=== PATIENT | female | born 1965 | race Caucasian/White ===

== ENCOUNTER 2020-02-15 08:02 | Outpatient (REF) | payer MEDICAID, SELFPAY ==
--- NOTE | 2020-02-15 | XR_ITS ---
EXAMINATION: XR KNEE, RIGHT CLINICAL INFORMATION: Anterior knee pain COMPARISON: None TECHNIQUE: Right knee is imaged in 4 views. FINDINGS: There is a moderate suprapatellar effusion. There is no fracture or dislocation or destructive process. There are no erosive changes or chondrocalcinosis. Borderline marginal osteophyte present medial femoral condyle. IMPRESSION: Moderate suprapatellar effusion.
== END 2020-02-15 08:03 | disposition home or self-care (01) ==
LOC: HO.XRAY 08:02
PROVIDERS: PCP Internal Medicine; Visit Provider Student in an Organized Health Care Education/Training Program
DX: M25.561 Pain in right knee (principal)
CPT/HCPCS: 73564

== ENCOUNTER → 2020-03-20 08:41 | Outpatient (BNVA) | payer MEDICAID, SELFPAY | PROVIDERS: PCP Internal Medicine; Referring Provider Internal Medicine; Visit Provider Orthopaedic Surgery | DX: M22.2X1 Patellofemoral disorders, right knee (principal) | CPT/HCPCS: 20610; 99202; J1040 ==

== ENCOUNTER 2020-04-22 07:00 | Outpatient (RCR) | payer MEDICAID, SELFPAY ==
--- NOTE | 2020-03-29 08:38 | MHC.PT.EP ---
[facility] [place] Office [place] Office [place] Office [address] Mimi Villagomez [address] [phone] F: [phone] F: [phone] F: [phone] F: [phone] Physical Therapy Plan of Care Date of Evaluation: 03/29/20 Date of Surgery: Diagnosis: PATELLOFEMORAL DISORDER RIGHT KNEE Assessment: 03/29/20 PT EVAL: 54 YO FEMALE W 5 MONTH H/O PROGR RIGHT KNEE PAIN- REF TO PT AFTER ORTHO CONSULT AND INJECTION ON 03/19/20. SHE NOTES FUNCTIONAL LIMITATIONS FOLLOWS: GAIT > 5 MIN, ASC/ DESC STAIR MGMT, PROLONGED SITTING, AND DRIVING. OBJECTIVE FINDINGS INCLUDE ALTERED GAIT MECH, DECR AROM RIGHT KNEE AND AMY HIPS, GENERAL WEAKNESS IN LEs/ PELVIS, GREATER THAN IDEAL BODY WEIGHT W MECHANICAL DEFICITS OF GENU VALGUS , AND PAIN/ (+) RIGHT PFPS. Pt IS A VERY GOOD PT CANDIDATE- SHE IS MOTIVATED TO REDUCE PAIN, IMPROVE FUNCTION TO PREVIOUS LEVELS, AND CONT W HER WEIGHT LOSS PROGRAM. Frequency and Duration: The patient will be seen 2x WK x 5 WKS Short Term Goals: Pt DEMON IMPROVED TECHN W GAIT MECH,STAIR MGMT AND FUNCT SQUAT W RIGHT KNEE PAIN DECR BY 50% IN 2 WKS IMPROVE AMY HIP FLEXIB ,R PATELLAR MOB, AND Pt DEMMON IMPROVED ED RE DX/ HEP INITIATION IN 2 WKS Long-Term Goals: Pt RESUME REG ADLs AND EXERCISE ROUTINE EVIDENT IN IMPROVED LEFT SCORE BY 10 POINTS (AT EVAL 15/80) IN 5 WKS Pt INDEP W HEP AND SELF-SX MGMT IN 5 WKS Treatment Plan: Modalities to reduce pain, spasms and effusion. Manual therapy to restore motion and function. Therapeutic exercise to improve strength and flexibility. Neuromuscular re-education for posture and balance. Therapeutic activities to return to functional activities of daily living. Please sign and return to therapist. Thank you for your referral.
--- NOTE | 2020-05-09 09:32 | MHC.PT.DC ---
[facility] [place] Office [place] Office [place] Office [address] Mimi Villagomez [address] [phone] F: [phone] F: [phone] F: [phone] F: [phone] Physical Therapy Discharge Report Diagnosis: PATELLOFEMORAL DISORDER RIGHT KNEE Date of Surgery: Date of Evaluation: 03/29/20 Date of Discharge: 05/09/20 Treatments to Date: 6 Cancellations to Date: 0 No Shows to Date: 0 Discharge Status: Achieved Goals Independent with HEP Discharge Summary: Pt PROGR WELL W IMP FUNCT MOB ANNA AND HEP COMPLIANCY EVIDENT IN INCR STRENGTH AND DECR PF PAIN- Pt MET HER PT GOALS AND IS INDEP AND MOTIVATED W HER HEP. Electronically signed by: Lelo Crawford,PT Please sign and return to therapist. Thank you for your referral.
--- NOTE | 2020-05-23 11:51 | MHC.PT.DC ---
[facility] [place] Office [place] Office [place] Office [address] Mimi Villagomez [address] [phone] F: [phone] F: [phone] F: [phone] F: [phone] Physical Therapy Discharge Report Diagnosis: PATELLOFEMORAL DISORDER RIGHT KNEE Date of Surgery: Date of Evaluation: 03/29/20 Date of Discharge: 05/09/20 Treatments to Date: 6 Cancellations to Date: 0 No Shows to Date: 0 Discharge Status: Achieved Goals Independent with HEP Discharge Summary: Pt PROGR WELL W IMP FUNCT MOB ANNA AND HEP COMPLIANCY EVIDENT IN INCR STRENGTH AND DECR PF PAIN- Pt MET HER PT GOALS AND IS INDEP AND MOTIVATED W HER HEP. Electronically signed by: Lelo Crawford,PT Please sign and return to therapist. Thank you for your referral.
== END 2020-05-09 09:39 | disposition other institution (70) ==
LOC: HO.PT 07:00
PROVIDERS: PCP Internal Medicine; Visit Provider Orthopaedic Surgery
DX: M22.2X1 Patellofemoral disorders, right knee (principal)
CPT/HCPCS: 97110; 97140; 97162; 97530

== ENCOUNTER 2020-05-20 11:56 | Outpatient (REF) | payer MEDICAID, SELFPAY ==
--- NOTE | 2020-05-20 | MM_ITS ---
EXAMINATION: MM SCREENING DIGITAL BREAST TOMOSYNTHESIS, BILATERAL CLINICAL INFORMATION: Screening. Asymptomatic. The lifetime risk of breast cancer based on the Tyrer-Cuzick Model is 6%. COMPARISON: Mammography: 08/02/2018, 06/30/2018, 03/29/2017 TECHNIQUE: Digital breast tomosynthesis is performed in both the craniocaudal and mediolateral oblique views along with computer-aided detection (CAD). Synthesized 2D images are generated from the tomosynthesis. FINDINGS: There are scattered areas of fibroglandular density (ACR BI-RADS breast composition Category b). Breast tissue composition borders on predominantly fatty. The background stromal and fibroglandular densities are stable. There is no interval mass or architectural abnormality or abnormal calcifications. Again, there are regional benign round calcifications central and upper outer right breast and a benign rim calcifications. The axilla and skin contours are unremarkable. Dermal lesion again seen overlying the posterior 7:00 left breast. MM/MM tomosynthesis screening BI IMPRESSION: No mammographic evidence of malignancy. ASSESSMENT: BI-RADS 2: Benign RECOMMENDATION: Routine annual mammography screening. This patient's information was entered into a reminder system with a target due date for their next mammogram.
== END 2020-05-20 11:57 | disposition home or self-care (01) ==
LOC: HO.MAMMO 11:56
PROVIDERS: PCP Internal Medicine; Visit Provider Internal Medicine
DX: Z12.31 Encounter for screening mammogram for malignant neoplasm of breast (principal)
CPT/HCPCS: 77063; 77067

== ENCOUNTER 2020-10-25 10:57 | Outpatient (REF) | payer MEDICAID, SELFPAY | END 2020-10-25 10:58 | disposition home or self-care (01) | LOC: HO.LAB 10:57 | PROVIDERS: PCP Internal Medicine; Visit Provider Internal Medicine | DX: Z20.822 Contact with and (suspected) exposure to COVID-19 (principal) | CPT/HCPCS: C9803; U0003; U0005 ==

== ENCOUNTER → 2020-11-21 15:34 | Outpatient (BNVA) | payer MEDICAID, SELFPAY | PROVIDERS: Visit Provider Student in an Organized Health Care Education/Training Program | DX: M22.2X1 Patellofemoral disorders, right knee (principal); E11.9 Type 2 diabetes mellitus without complications; I10 Essential (primary) hypertension; Z79.84 Long term (current) use of oral hypoglycemic drugs; Z79.899 Other long term (current) drug therapy | CPT/HCPCS: 99212 ==

== ENCOUNTER → 2020-12-03 11:33 | Outpatient (BNVA) | payer MEDICAID, SELFPAY | PROVIDERS: PCP Internal Medicine; Visit Provider Orthopaedic Surgery | DX: M22.2X1 Patellofemoral disorders, right knee (principal) | CPT/HCPCS: 20610; 99212; J1040 ==

== ENCOUNTER 2021-06-16 12:35 | Outpatient (REF) | payer MEDICAID, SELFPAY ==
--- NOTE | ~2021-06-16 | MM_ITS ---
EXAMINATION: MM SCREENING DIGITAL BREAST TOMOSYNTHESIS, BILATERAL CLINICAL INFORMATION: Screening. Asymptomatic. The lifetime risk of breast cancer based on the Tyrer-Cuzick Model is 6%. COMPARISON: Mammography: 05/20/2020, 07/05/2018, 06/30/2018, 03/29/2017 TECHNIQUE: Digital breast tomosynthesis is performed in both the craniocaudal and mediolateral oblique views along with computer-aided detection (CAD). Synthesized 2D images are generated from the tomosynthesis. FINDINGS: There are scattered areas of fibroglandular density (ACR BI-RADS breast composition Category b). Background stromal and fibroglandular densities are stable. Parenchymal pattern borders on predominantly fatty. There is no developing density or interval mass or architectural abnormality. Again, there are benign regional scattered coarse round and rim calcifications central and upper outer right breast. No significant changes. MM/MM tomosynthesis screening BI IMPRESSION: No mammographic evidence of malignancy. ASSESSMENT: BI-RADS 2: Benign RECOMMENDATION: Routine annual mammography screening. This patient's information was entered into a reminder system with a target due date for their next mammogram.
== END 2021-06-16 12:36 | disposition home or self-care (01) ==
LOC: HO.MAMMO 12:35
PROVIDERS: PCP Internal Medicine; Visit Provider Internal Medicine
DX: Z12.31 Encounter for screening mammogram for malignant neoplasm of breast (principal)
CPT/HCPCS: 77063; 77067

== ENCOUNTER → 2021-10-21 10:38 | Outpatient (BNVA) | payer MEDICAID, SELFPAY | PROVIDERS: PCP Internal Medicine; Visit Provider Nurse Practitioner Family | DX: M22.2X1 Patellofemoral disorders, right knee (principal); M19.041 Primary osteoarthritis, right hand; M79.642 Pain in left hand; R76.8 Other specified abnormal immunological findings in serum | CPT/HCPCS: 99212 ==

== ENCOUNTER → 2022-11-03 08:56 | Outpatient (BNVA) | payer MEDICAID, SELFPAY | PROVIDERS: PCP Internal Medicine; Visit Provider Internal Medicine Rheumatology | DX: R76.8 Other specified abnormal immunological findings in serum (principal); M77.12 Lateral epicondylitis, left elbow; M22.2X1 Patellofemoral disorders, right knee | CPT/HCPCS: 99212 ==

== ENCOUNTER 2023-09-21 08:13 | Outpatient (REF) | payer MEDICAID, SELFPAY ==
[2023-09-21 12:22] LABS: Alanine Aminotransferase 16 U/L (0-31); Albumin Level 4.2 g/dL (3.5-5.0); Alkaline Phosphatase 73 U/L (39-117); Anion Gap 17 (12-20); Aspartate Amino Transferase 15 U/L (5-31); Bilirubin Direct 0.2 mg/dL (0.0-0.5); Bilirubin Total 0.5 mg/dL (0.0-1.0); Blood Urea Nitrogen 20 mg/dL (9-16); Calcium 9.9 mg/dL (8.4-10.2); Carbon Dioxide 24 mmol/L (22-29); Chloride 104 mmol/L (96-108); Cholesterol 236 mg/dL (<200); Estimated Glomerular Filt Rate > 60; Glucose Random 208 mg/dL (60-115); HDL Cholesterol 65 mg/dL (>40); LDL Cholesterol Calculated 144 mg/dL (<100); Potassium 4.5 mmol/L (3.3-5.1); Sodium 140 mmol/L (135-145); Total Protein 7.6 g/dL (6.5-8.0); Triglycerides 139 mg/dL (<150)
[2023-09-21 12:41] LABS: Vitamin B12 293 pg/mL (200-900)
== END 2023-09-21 08:14 | disposition home or self-care (01) ==
LOC: HO.HHCL 08:13
PROVIDERS: Visit Provider Internal Medicine
DX: E11.65 Type 2 diabetes mellitus with hyperglycemia (principal); Z79.4 Long term (current) use of insulin
CPT/HCPCS: 36415; 80048; 80061; 80076; 82607

== ENCOUNTER 2023-10-01 11:15 | Outpatient (REF) | payer MEDICAID, SELFPAY ==
[2023-10-01 14:08] LABS: Vitamin D 25-OH Total 23.7 ng/mL (>30)
== END 2023-10-01 11:16 | disposition home or self-care (01) ==
LOC: HO.HHCL 11:15
PROVIDERS: Visit Provider Internal Medicine
DX: E11.65 Type 2 diabetes mellitus with hyperglycemia (principal); Z79.4 Long term (current) use of insulin
CPT/HCPCS: 36415; 82306

== ENCOUNTER 2023-10-19 10:38 | Outpatient (REF) | payer MEDICAID, SELFPAY ==
[2023-10-19 13:05] LABS: Anion Gap 20 (12-20); Blood Urea Nitrogen 20 mg/dL (9-16); Calcium 10.2 mg/dL (8.4-10.2); Carbon Dioxide 26 mmol/L (22-29); Chloride 96 mmol/L (96-108); Estimated Glomerular Filt Rate > 60; Glucose Random 262 mg/dL (60-115); Potassium 4.8 mmol/L (3.3-5.1); Sodium 137 mmol/L (135-145)
[2023-10-19 14:02] LABS: Creatinine Urine 24.51 mg/dL; Microalbumin Urine < 5.0 mg/L
== END 2023-10-19 10:39 | disposition home or self-care (01) ==
LOC: HO.HHCL 10:38
PROVIDERS: Visit Provider Internal Medicine
DX: E11.65 Type 2 diabetes mellitus with hyperglycemia (principal); I10 Essential (primary) hypertension; Z79.4 Long term (current) use of insulin
CPT/HCPCS: 36415; 80048; 82043; 82570

== ENCOUNTER 2023-10-20 14:35 | Outpatient (REF) | payer MEDICAID, SELFPAY ==
--- NOTE | ~2023-10-20 | MM_ITS ---
EXAMINATION: MM SCREENING DIGITAL BREAST TOMOSYNTHESIS, BILATERAL CLINICAL INFORMATION: Screening. Asymptomatic. COMPARISON: Mammography: This study is compared with prior exams dating back to 2019. TECHNIQUE: Digital breast tomosynthesis is performed in both the craniocaudal and mediolateral oblique views along with computer-aided detection (CAD). Synthesized 2D images are generated from the tomosynthesis. FINDINGS: The breasts are almost entirely fatty (ACR BI-RADS breast composition Category a). There are no significant masses, abnormal calcifications, or other abnormalities. There are unchanged, benign, scattered calcifications in the superior aspect of the right breast. MM/MM tomosynthesis screening BI IMPRESSION: No mammographic evidence of malignancy. ASSESSMENT: BI-RADS BI-RADS 2 - Benign Findings RECOMMENDATION: Routine annual mammography screening. 1 year F/U This examination should not preclude the clinical evaluation of a suspicious palpable abnormality. This patient's information was entered into a reminder system with a target due date for their next mammogram.
== END 2023-10-20 14:36 | disposition home or self-care (01) ==
LOC: HO.MAMMO 14:35
PROVIDERS: PCP Internal Medicine; Visit Provider Internal Medicine
DX: Z12.31 Encounter for screening mammogram for malignant neoplasm of breast (principal)
CPT/HCPCS: 77063; 77067

== ENCOUNTER → 2023-10-20 15:15 | Outpatient (BNV) | payer MEDICAID, SELFPAY | PROVIDERS: PCP Internal Medicine; Visit Provider Radiology Diagnostic Radiology | DX: Z12.31 Encounter for screening mammogram for malignant neoplasm of breast (principal) | CPT/HCPCS: 77063; 77067 ==

== ENCOUNTER 2023-12-13 13:53 | Outpatient (REF) | payer MEDICAID, SELFPAY ==
[2023-12-13 15:42] LABS: Bacterial Vaginosis PCR POSITIVE (Negative); Candida Group PCR DETECTED (Not Detect); Candida glab krusei PCR NOT DETECTED (Not Detect); Trichomonas vaginalis PCR NOT DETECTED (Not Detect)
== END 2023-12-13 13:54 | disposition home or self-care (01) ==
LOC: HO.HHCLNP 13:53
PROVIDERS: Visit Provider Internal Medicine
DX: N89.8 Other specified noninflammatory disorders of vagina (principal)
CPT/HCPCS: 0352U

== ENCOUNTER 2023-12-13 13:54 | Outpatient (REF) | payer MEDICAID, SELFPAY ==
[2023-12-15 12:09] LABS: HPV mRNA E6/E7 Not Detected (Not Detected)
== END 2023-12-13 13:55 | disposition home or self-care (01) ==
LOC: HO.HHCLNP 13:54
PROVIDERS: Visit Provider Internal Medicine
DX: Z01.419 Encounter for gynecological examination (general) (routine) without abnormal findings (principal)
CPT/HCPCS: 0352U; 36415; 87624; 88175

== ENCOUNTER 2023-12-20 07:59 | Outpatient (REF) | payer MEDICAID, SELFPAY ==
[2023-12-20 11:51] LABS: Alanine Aminotransferase 24 U/L (0-31); Albumin Level 4.2 g/dL (3.5-5.0); Alkaline Phosphatase 109 U/L (39-117); Aspartate Amino Transferase 35 U/L (5-31); Bilirubin Direct 0.2 mg/dL (0.0-0.5); Bilirubin Total 0.4 mg/dL (0.0-1.0); Cholesterol 154 mg/dL (<200); HDL Cholesterol 45 mg/dL (>40); LDL Cholesterol Calculated 81 mg/dL (<100); Total Protein 7.4 g/dL (6.5-8.0); Triglycerides 143 mg/dL (<150)
== END 2023-12-20 08:00 | disposition home or self-care (01) ==
LOC: HO.HHCL 07:59
PROVIDERS: Visit Provider Internal Medicine
DX: Z13.220 Encounter for screening for lipoid disorders (principal)
CPT/HCPCS: 36415; 80061; 80076

== ENCOUNTER 2024-04-27 08:08 | Outpatient (REF) | payer MEDICAID, SELFPAY ==
[2024-04-27 11:44] LABS: Anion Gap 15 (12-20); Blood Urea Nitrogen 14 mg/dL (9-16); Calcium 8.4 mg/dL (8.4-10.2); Carbon Dioxide 25 mmol/L (22-29); Chloride 104 mmol/L (96-108); Estimated Glomerular Filt Rate > 60; Glucose Random 179 mg/dL (60-115); Potassium 4.4 mmol/L (3.3-5.1); Sodium 140 mmol/L (135-145)
== END 2024-04-27 08:09 | disposition home or self-care (01) ==
LOC: HO.HHCL 08:08
PROVIDERS: Visit Provider Internal Medicine
DX: I10 Essential (primary) hypertension (principal)
CPT/HCPCS: 36415; 80048

== ENCOUNTER 2024-10-12 08:12 | Outpatient (REF) | payer MEDICAID, SELFPAY ==
--- OUTSIDE RECORDS SUMMARY | 2024-10-12 08:15 | XMS_ITS | Encounter Summary ---
Author Organization [employer] Address [address] [facility] [address] [place] [address] Care Team Providers Care Glass Unloading Equipment Tender Name Role Phone Apple Rivera MD Primary Care Provide r Teresa Wolf PharmD Unavailable [phone] Reason for Visit * Reason Comments Med Refill Encounter Details Date Type Department Care Team ([facility] st Contact Info) Description 06/16/2024 Refill [facility] MEDICINE [address] [place], [place] [id number] Teresa Wolf, PharmD [address] [place] [address] Type 2 diabetes mellitus with hyperglycemia, with long-term current use of insulin ([facility]) Social History Tobacco Use Types Packs/Day Years Used Date Smoking Tobacco: Never Passive Smoke Exposure: Never Smokeless Tobacco: Never Alcohol Use Standard Drinks/Week Comments Never 0 (1 standard drink = 0.6 oz pur e alcohol) Depression Answer Date Recorded Patient Health Questionnaire-9 Score 0 12/13/2023 Patient Health Questionnaire-9 Score 0 12/13/2023 Last PHQ-9: Questionnaire Data Not on file 0 12/13/2023 Housing Stability Answer Date Recorded What is your housing situation today? I have kolby benitez 12/13/[address] you li ve. Do you have problems with any of the following? None of the above 12/13/2023 Food Insecurity Answer Date Recorded Within the past 12 months, y ou worried that your food would run out before you got money to buy more: Never True 12/13/2023 Within the past 12 months,th e food you bought just didn't last and you didn't have enough money to get more: Never True Transportation Answer Date Recorded In the past 12 months, has l ack of transportation kept you from medical appts, meetings, work or from getting things needed for daily living? No 12/13/2023 Utilities Answer Date Recorded In the past 12 months, has t he electric, gas, oil or water company threatened to shut off services in your home? No 12/13/2023 Depression Answer Date Recorded Patient Health Questionnaire-2 Score 0 12/13/2023 Internet Access Answer Date Recorded Internet Access Q1 No 01/14/2024 Internet Access Q2 I do not want or need it 12/17 Comments Unknown Sex and Gender Information Value Date Recorded Sex Assigned at Female 03/16/2022 10:34 AM EDT Legal Sex Female 10:34 AM EDT Gender Identity Female 03/16/2022 10:34 AM EDT Sexual Orientation Choose not to disclose 2021 10:34 AM EDT documented as of this encounter Plan of Treatment Upcoming Encounters Date Type Department Care Team (Late st Contact Info) Description 10/18/2024 9:30 AM EDT Medication Management [facility] MEDICINE [address] [place] [address] Teresa Wlof, PharmD [address] [place] [address] 12/08/2024 10:00 AM EDT Office Visit [facility] OPTOMETRY [address] [place] [address] Yudith Velázquez, OD [address] [place] [address] 01/05/2025 11:15 AM EDT Office Visit [facility] MEDICINE [address] [place] [address] Apple Rivera MD [address] [place] [address] 01/26/2025 8:00 AM EDT Office Visit [facility] ADULT DENTAL [address] [place] [address] Geeta Reyes [address] [place] [address] documented as of this encounter Goals Goal Patient Goal Type Associated Problems Recent Progress Patient-Stated? Author Blood Pressure < 140/90 Blood Pressure 140/90(2024 10:53 AM EDT) No Teresa Ramirez PharmD Consistently take Medications as Prescribed General No Teresa Ramirez PharmD Hemoglobin A1c < 7 Result Component 10.2(08/12/19 11:01 AM EDT) No Teresa Ramirez PharmD documented as of this encounter Visit Diagnoses Diagnosis Type 2 diabetes mellitus with hyperglycemia, with long-term current use of insulin ([facility]) documented in this encounter Additional Health Concerns Assessment Noted Time PHQ-9 Depression Total Score: 0 12/13/19 24 9:31 AM EDT documented as of this encounter Care Teams Glass Unloading Equipment Tender Relationship Specialty Start Date End Date Apple Rivera MD [address] [place] [address] PCP - General Family Medicine 10/31/19 Teresa Wolf PharmD [address] [place] [id number] Pharmacist Internal Medicine 09/14/23 María Van Sap Bi DeveloperBehavioral Therapy Coordinator 05/19/23 David Mendez Sap Bi DeveloperBehavioral Therapy Coordinator 07/20/24 documented as of this encounter
[2024-10-12 12:06] LABS: Alanine Aminotransferase 24 U/L (0-31); Albumin Level 4.3 g/dL (3.5-5.0); Alkaline Phosphatase 102 U/L (39-117); Anion Gap 14 (12-20); Aspartate Amino Transferase 22 U/L (5-31); Bilirubin Total 0.2 mg/dL (0.0-1.0); Blood Urea Nitrogen 18 mg/dL (9-16); Carbon Dioxide 27 mmol/L (22-29); Chloride 106 mmol/L (96-108); Cholesterol 247 mg/dL (<200); Estimated Glomerular Filt Rate > 60; Glucose Random 95 mg/dL (60-115); HDL Cholesterol 56 mg/dL (>40); LDL Cholesterol Calculated 142 mg/dL (<100); Potassium 4.5 mmol/L (3.3-5.1); Sodium 142 mmol/L (135-145); Total Protein 7.7 g/dL (6.5-8.0); Triglycerides 245 mg/dL (<150)
[2024-10-12 13:08] LABS: Creatinine Urine 156.35 mg/dL; Microalbum/Creatinine Ratio Ur 4.4 ug/mg cr (<30)
== END 2024-10-12 08:13 | disposition home or self-care (01) ==
LOC: HO.HHCL 08:12
PROVIDERS: Visit Provider Internal Medicine
DX: E11.65 Type 2 diabetes mellitus with hyperglycemia (principal); Z79.4 Long term (current) use of insulin
CPT/HCPCS: 36415; 80053; 80061; 82043; 82570

== ENCOUNTER 2024-12-08 10:30 | Outpatient (AMB) | payer MEDICAID, SELFPAY ==
--- NOTE | 2024-12-08 10:35 | MHC.OFFVIS ---
Vital Signs 12/08/24 10:46 Height 5 ft 1 in Weight 200 lb BMI 37.8 BP 166/82 H Blood Pressure Location Lt brachial Position Sitting Pulse 92 Pulse Oximetry (%) 95 Oxygen Delivery Method Room Air Intake Visit Reasons: [facility] Screening /Constipation Intake Note: Patient new consult for pre Colonoscopy screening. Patient cc: upper abdominal pain/bloating, acid reflux with gasses, constipation/diarrhea and swallowing difficulties. Denes any Legal Analyst Required: Yes Legal Analyst Name: [facility] interpeter Accompanied by: Family/Other Allergies No Known Allergies Allergy (Verified 11/03/22 09:08) Medication List - Last Reconciled 12/08/24 by Susannah Dela Cruz CNP amlodipine-benazepril 10-40 mg 1 cap PO DAILY atorvastatin 40 mg PO DAILY bisacodyl (Dulcolax (bisacodyl)) 20 mg (4 x 5 mg) PO ONCE 1 day canagliflozin (Invokana) 300 mg PO QAM chlorthalidone 50 mg PO QAM cholecalciferol (vitamin D3) 50 mcg PO DAILY citalopram 20 mg PO DAILY cyanocobalamin (vitamin B-12) 1,000 mcg PO DAILY famotidine 40 mg PO BEDTIME glipizide ER 2 tabs AM 1 tab evening orally; insulin glargine (Lantus Solostar U-100 Insulin) 30 units subcut QAM loratadine 10 mg PO DAILY PRN metformin ER 1,000 mg PO BID methylcellulose (laxative) (Fiber Therapy (methylcellulose)) 500 mg PO BID pantoprazole 40 mg PO QAM pioglitazone 30 mg PO QAM polyethylene glycol 3350 (Miralax) 238 grams PO ONCE polyethylene glycol 3350 (Miralax) 17 grams PO DAILY 30 days tirzepatide (Mounjaro) 2.5 mg subcut QWEEK HPI HPI [place] Screening /Constipation: Details: Patient is a 58-year-old female with PMH of hypertension, diabetes and asthma. Referred by PCP for pre colonoscopy screening and further evaluation of constipation. Patient is accompanied by her granddaughter. Lety presents for colonoscopy screening, initially referred for chronic constipation but now reports a shift to diarrhea. Constipation has been a persistent problem, managed with Miralax started in September, which led to the onset of diarrhea within the same month. Diarrhea is most prominent at night, causing awakening up to four times, and also occurs in the morning, resolving later in the day. Miralax was stopped 15 days ago; constipation returns if Miralax is withheld for about three days. Vomiting occurs occasionally, typically after coughing, with the last episode 10 days ago. Nausea is intermittent. No blood in stools. Heartburn is persistent, worsened by water and other triggers. There is discomfort with swallowing water, medications, and occasional with solids. Appetite is preserved, but there has been gradual weight gain since 2020. Reports home blood glucose has not dropped below 210 mg/dL in the past 15 days, with occasional readings of 175 mg/dL. Diabetes regimen includes injectable and oral agents. Patient denies: fever/chills, unintentional wt loss or melena/hematochezia. Social hx: -denies ETOH use -denies recreational drug use -non-smoker - family hx as below -denies personal hx of CA -denies significant cardiopulmonary history -tolerated anesthesia in the past without difficulty. PFS Medical History (Updated 12/08/24 @ 12:18 by Susannah Dela Cruz CNP) Diabetes type 2 Epigastric pain Dysphagia Dysacousia Acid reflux Constipation Colon cancer screening Diabetes type 2, controlled Asthma Hypertension Surgical History (Updated 12/08/24 @ 10:40 by Apple Hernandez) History of esophagogastroduodenoscopy (EGD) Hx of colonoscopy History of hysterectomy Family History Father HTN (hypertension) Throat cancer Alcoholism Mother HTN (hypertension) Social History Alcohol intake: never Patient Tobacco Use Status: Never used Tobacco Current occupational status: unemployed Current occupation: Right Handed Review of Systems Const Reports as per HPI ENT Reports as per HPI Card Reports as per HPI Resp Reports as per HPI GI Reports as per HPI Reports as per HPI Physical Exam Const General: healthy appearing, no acute distress and well developed Nutritional Appearance: average body habitus Orientation/consciousness: patient oriented x3 HEENT Head: Yes normal to inspection, Yes normocephalic and Yes atraumatic Face and sinus: Yes normal facial exam Eyes General: appearance normal, both eyes and all related structures Neck Neck: Yes normal visual inspection Resp Effort & Inspection: normal respiratory effort, able to speak in complete sentences, no tracheal deviation and symmetric chest movement Auscultation: clear to auscultation bilaterally Cardio Jugular venous distension: no JVD Rate: regular rate Rhythm: regular rhythm Heart sounds: S1 normal heart sound present, S2 normal heart sound present, no gallops and no murmurs GI Inspection: Yes normal to inspection, No distended and Yes obesity Palpation (GI): Soft to palpation, not firm, Tenderness to palpation present (GI) and No hepatosplenomegaly present Auscultation: normoactive bowel sounds Neuro General: patient oriented x3 Gait exam (Neuro): Normal gait present Psych Appearance: grossly normal Mental Status: mental status grossly normal Speech and movement: Normal speech and movement present Affect: normal affect Attitude: cooperative Thought process: Normal thought process present Thought content: Normal thought content present Insight: Good insight present (Psych) Judgement: Good judgement present (Psych) Results Reviewed Results Reviewed: DATE OF SERVICE: 12/20/18 Procedure Description: COLONOSCOPY PROCEDURE NOTE Procedure: The patient was placed in the left lateral decubitis position and pre-procedure medications were administered. After a digital rectal examination of the ano-rectum, the video colonoscope was inserted into the rectum and advanced through the colon to the cecum/TI. The colonoscope was slowly withdrawn in a retrograde panoramic fashion and the colon mucosa was carefully examined including a retroflexed view of the rectum. Findings and interventions are described below. Procedure Difficulty: Without difficulty Findings: Terminal Ileum ? Normal Cecum ?Normal Ascending Colon ?Normal Transverse Colon -Normal Descending Colon ?Normal Sigmoid Colon ?Normal, 6-8 mm sessile polyp removed wtih cold snare Rectum ? small grade I internal hemorrhoids Ano-rectum -Normal Colon preparation: Excellent Impression and Post Procedure Diagnosis: Colonoscopy Findings: polyp hemorrhoids Plan: Await pathology results hig fiber diet Repeat Colonoscopy interval based on path results ? in 3-5 years if polyps are adenomatous and 10 years if polyps are hyperplastic. Above findings were reviewed with the patient and relevant handouts were given in the discharge area Surgeon(s): SUMIT CHENEY Assessment & Plan Assessment & Plan (1) Colon cancer screening: Comment: 12/20/18 COLONOSCOPY complete wtih excellent prep- 6-8 m rectosigmoid tubular adenoma, hemorrhoids Code(s): Z12.11 - Encounter for screening for malignant neoplasm of colon Category: Medical Plan: Due for polyp surveillance colonoscopy Medications: -prescriptions for laxative tablets and MiraLax sent to pharmacy; instructions for Gatorade purchase and clear liquid diet given. - understands diabetes medications and ASA will need to be held days prior to procedure. Nurse to review med holds per protocol. Patient educated on scheduling process, procedure preparation, including avoiding certain foods and ensuring clear liquid intake Advised on necessity for ride post-procedure due to sedation. (2) Constipation: Code(s): K59.00 - Constipation, unspecified Category: Medical Qualifiers: Constipation type: unspecified constipation type Qualified Code(s): K59.00 - Constipation, unspecified Plan: Longstanding constipation, responsive to Miralax, with recurrence when Miralax is withheld. Diarrhea likely secondary to overuse of osmotic laxative. Medications: -Adjust Miralax to every other day; skip an extra day if diarrhea occurs. -add fiber supplement Lifestyle Modifications: Monitor fiber intake, maintain adequate hydration. Follow-Up: Assess response to Miralax titration at next visit. (3) Acid reflux: Code(s): K21.9 - Gastro-esophageal reflux disease without esophagitis Category: Medical Qualifiers: Esophagitis presence: esophagitis presence not specified Qualified Code(s): K21.9 - Gastro-esophageal reflux disease without esophagitis Plan: Persistent heartburn, worsened by water and other triggers, with incomplete response to omeprazole. Symptoms suggest possible refractory GERD or other upper GI pathology. Upper endoscopy and swallow study indicated to evaluate for esophagitis, stricture, or motility disorder. Additional Tests: Order upper endoscopy and barium swallow study. Medications: Switch to pantoprazole 40 mg PO daily. Encouraged to take pantoprazole as prescribed, taken at least 30-60 minutes before a meal. Education on GERD prevention : -Advised against heavy meals; encouraged small, frequent meals instead of large ones. - Instructed to remain upright for 2?3 hours after eating. - Advised to avoid late-night meals, spicy foods, caffeine, alcohol, known dietary triggers, and tight-fitting clothing. - Emphasis placed on gradual implementation of lifestyle changes to improve adherence and symptom control. (4) Epigastric pain: Code(s): R10.13 - Epigastric pain Category: Medical Plan: Exam reveals upper epigastric tenderness; differential includes peptic ulcer disease, biliary pathology, or hepatic etiology. Ultrasound indicated to assess gallbladder, liver, and adjacent structures. Additional Tests: Abdominal ultrasound (urgent). Medications: As above. Lifestyle Modifications: As above. (5) Diabetes type 2: Code(s): E11.9 - Type 2 diabetes mellitus without complications Category: Medical Qualifiers: Diabetes mellitus intermediate manager insulin use: with intermediate manager use Diabetes mellitus complication status: with hyperglycemia Qualified Code(s): E11.65 - Type 2 diabetes mellitus with hyperglycemia; Z79.4 - longterm (current) use of insulin Plan: Reported home glucose consistently >210 mg/dL, which may contribute to GI symptoms (e.g., gastroparesis, diarrhea). Suboptimal glycemic control increases risk for complications and may exacerbate GI complaints. Additional Tests: Review recent labs; coordinate with diabetes management team. Medications: Continue current regimen (Manjaro, glipizide, metformin, Lantus, amlodipine); hold diabetes meds as instructed for colonoscopy prep. Lifestyle Modifications: Reinforced diabetes education, dietary counseling, consider referral to museum educator/museum educator. Follow-Up: Endocrinology and PCP is planned Plan Follow-up in 8 weeks or sooner as needed Time: I spent a total of 45b minutes on the date of encounter which includes: Preparing to see the patient (reviewed previous documentation, test results and medical history) Performing a medically appropriate exam and/or evaluation Ordering medications, tests, and procedures Documenting clinical information in the health record Orders: Orders FL barium swallow Today K21.9 - Gastro-esophageal reflux disease without esophagitis, R13.10 - Dysphagia, unspecified US abdomen complete Today K21.9 - Gastro-esophageal reflux disease without esophagitis, R10.13 - Epigastric pain Medications: New bisacodyl (Dulcolax (bisacodyl)) Take four tablets pre colonoscopy instructions 20 mg (4 x 5 mg) PO ONCE 4 tabs 0RF 1 day polyethylene glycol 3350 (Miralax) per colonoscopy prep instructions 238 grams PO ONCE 238 grams 0RF polyethylene glycol 3350 (Miralax) Take 17G (one cap full) daily with 8oz of water 17 grams PO DAILY 510 grams 2RF constipation 30 days methylcellulose (laxative) (Fiber Therapy (methylcellulose)) Take one tablet twice daily 500 mg PO BID 60 tabs 1RF pantoprazole Take 1 tablet daily. Best taken on an empty stomach, 30 minutes before food 40 mg PO QAM 90 tabs 1RF Coding Level of Care Code New Pt New Pt Level 4 (95041) Patient Type New Diagnoses Colon cancer screening Z12.11 Constipation, unspecified constipation type K59.00 Constipation type: unspecified constipation type Gastroesophageal reflux disease, unspecified whether esophagitis present K21.9 Esophagitis presence: esophagitis presence not specified Epigastric pain R10.13 Type 2 diabetes mellitus with hyperglycemia, with long-term current use of insulin E11.65; Z79.4 Diabetes mellitus intermediate manager insulin use: with chcf use Diabetes mellitus complication status: with hyperglycemia
--- OUTSIDE RECORDS SUMMARY | 2024-12-08 10:42 | XMS_ITS | Encounter Summary ---
Author Organization [employer] Address [address] [place] [address] Care Team Providers Care Salesperson Fashion Accessories Name Role Phone Apple Rivera MD Primary Care Provide r Teresa Wolf PharmD Unavailable [phone] Reason for Visit * Reason Comments Med Refill Encounter Details Date Type Department Care Team ([facility] st Contact Info) Description 06/16/2024 Refill [facility] [address] [place], [place] [phone] Teresa Wolf, PharmD [address] [place] [address] Type 2 diabetes mellitus with hyperglycemia, with long-term current use of insulin ([facility]) Social History Tobacco Use Types Packs/Day Years [...] Care Team (Late st Contact Info) Description 12/12/2024 10:30 AM EDT Medication Management [facility] [address] [place] [address] Teresa Wolf, PharmD [address] [place] [address] 01/05/2025 11:15 AM EDT Office Visit [facility] [address] [place] [phone] Apple Rievra MD [address] [place] [address] 01/26/2025 8:00 AM EDT Office Visit [facility] [address] [place] [address] Jerry Reyesaris [address] [place] [address] 06/11/2025 10:00 AM EST Office Visit [facility] [address] [place] [address] Yudith Velázquez, СВЕТЛАНА [address] [place] [address] documented as of this encounter Goals Goal Patient Goal Type Associated Problems Recent Progress Patient-Stated? Author Blood Pressure < 140/90 Blood Pressure 136/78(2024 9:26 AM EDT) No Teresa Ramirez PharmD Consistently take Medications as Prescribed General No Teresa Ramirez PharmD Hemoglobin A1c < 7 Result Component 10.2(08/12/19 11:01 AM EDT) No Teresa Ramirez PharmD documented as of this encounter Visit Diagnoses Diagnosis Type 2 diabetes mellitus with hyperglycemia, with long-term current use of insulin ([facility]) documented in this encounter Additional Health Concerns Assessment Noted Time PHQ-9 Depression Total Score: 0 12/13/19 9:31 AM EDT documented as of this encounter Care Teams Salesperson Fashion Accessories Relationship Specialty Start Date End Date Apple Rivera MD [address] [place] [address] PCP - General Family Medicine 10/31/19 Teresa Wolf PharmD [address] [place] [address] Pharmacist Internal Medicine 09/14/23 María Van Computer Systems Support SpecialistTechnology Methodology Consultant 05/19/23 David Mendez Computer Systems Support SpecialistTechnology Methodology Consultant 07/20/24 documented as of this encounter
--- OUTSIDE RECORDS SUMMARY | 2024-12-08 10:42 | XMS_ITS ---
Author Name [facility] Organization Unknown Encounters Encounter Type Encounter Reason Primary Diagnosis Location Date Ambulatory [facility] 10/05/2024 Ambulatory [facility] 10/05/2024
--- OUTSIDE RECORDS SUMMARY | 2024-12-08 10:42 | XMS_ITS | Encounter Summary ---
Author Organization [facility] Address [address] [place] [address] Care Team Providers Care Social Welfare Administrator Name Role Phone Apple Rivera MD Primary Care Provide Encounter Details Date Type Department Care Team (Late st Contact Info) Description 12/05/2024 Telephone [facility] - [place] [address] [place] [address] Giovanna Galaviz NP [address] [address] Social History Tobacco Use Types Packs/Day Years Used Date Smoking Tobacco: Never Assessed Comments Unknown Sex and Gender Information Value Date Recorded Sex Assigned at Not on file Legal Sex Female 6:18 PM EST Gender Identity Not on file Sexual Orientation Not on file documented as of this encounter Progress Notes * Alyssa Marvin - 12/05/2024 3:49 PM EDT Referral request faxed to [facility] and placed in missing accordion folder documented in this encounter Plan of Treatment Upcoming Encounters Date Type Department Care Team (Late st Contact Info) Description 01/09/2025 9:20 AM EDT Consult [facility] - [place] [address] [place] [address] Giovanna Galaviz NP 175 [facility] [address] [place], [place] [phone] documented as of this encounter Visit Diagnoses Not on filedocumented in this encounter Care Teams Social Welfare Administrator Relationship Specialty Start Date End Date Apple Rivera MD [address] [phone] PCP - General 10/06/23 documented as of this encounter
[2024-12-08 10:46] VITALS: BP 166/82; PULSE 92; O2SAT 95; BMI 37.8
== END 2024-12-08 11:27 | disposition home or self-care (01) ==
LOC: HO.HGI 10:31
PROVIDERS: PCP Internal Medicine; Visit Provider Nurse Practitioner Family
DX: K59.00 Constipation, unspecified (principal); K21.9 Gastro-esophageal reflux disease without esophagitis; R10.13 Epigastric pain; Z12.11 Encounter for screening for malignant neoplasm of colon; E11.65 Type 2 diabetes mellitus with hyperglycemia; Z79.4 Long term (current) use of insulin; Z01.818 Encounter for other preprocedural examination
CPT/HCPCS: 99204

== ENCOUNTER → 2024-12-08 10:30 | Outpatient (BNVA) | payer MEDICAID, SELFPAY | PROVIDERS: PCP Internal Medicine; Visit Provider Nurse Practitioner Family | DX: Z12.11 Encounter for screening for malignant neoplasm of colon (principal); K59.00 Constipation, unspecified; K21.9 Gastro-esophageal reflux disease without esophagitis; R10.13 Epigastric pain; E11.65 Type 2 diabetes mellitus with hyperglycemia; Z79.4 Long term (current) use of insulin; Z79.899 Other long term (current) drug therapy; Z79.84 Long term (current) use of oral hypoglycemic drugs | CPT/HCPCS: 99212 ==

== ENCOUNTER 2024-12-13 09:35 | Outpatient (REF) | payer MEDICAID, SELFPAY ==
--- NOTE | ~2024-12-13 | US_ITS ---
CLINICAL HISTORY: K21.9 - epigastric pain US abdomen complete Comparison: None provided Findings: The visualized pancreas is normal. The aorta and inferior vena cava are normal caliber. The liver is normal in size with increased echogenicity. There is no intrahepatic bile duct dilatation. The common duct is 4.0 mm in diameter. The gallbladder is normal. There is no sonographic Olivarez sign. The main portal vein is antegrade. The right kidney is 11 cm in length. There is fullness of the renal pelvis. The left kidney is 9.5 cm in length. The spleen is normal. No ascites. IMPRESSION: Hepatic steatosis. Pelviectasis of the right kidney. This document has been electronically signed by: Maren Hackett MD on 12/13/2024 14:26:00
--- OUTSIDE RECORDS SUMMARY | 2024-12-13 10:07 | XMS_ITS | Clinical Summary ---
Author Organization [address] [place] [address] Address [address] [place] [address] Phone Care Team Providers Care Container Finishing Inspector Name Role Phone Apple Rivera MD Primary Care Provide r Allergies No known active allergies Medications albuterol sulfate (ProAir RespiClick) 90 mcg/actuation aerosol powdr breath activated Inhale into the lungs. Active blood pressure monitor kit by Does not apply route. Active cholecalciferol (VITAMIN D-3) 50 mcg (2,000 unit) tablet Take 50 mcg by mouth. Active citalopram (CeleXA) 20 mg tablet Take 1 tablet (20 mg total) by mouth 1 (one) time each day. Active cyanocobalamin (VITAMIN B-12) 100 mcg tablet Take 1 tablet (100 mcg total) by mouth 1 (one) time each day. Active dulaglutide (Trulicity) 0.75 mg/0.5 mL pen injector injection Inject into the skin. Active empagliflozin (Jardiance) 10 mg tablet Take 1 tablet (10 mg total) by mouth. Active hydroCHLOROthiazi de (MICROZIDE) 12.5 mg capsule Take 1 capsule (12.5 mg total) by mouth 1 (one) time each day. Active insulin glargine (LANTUS SoloStar) 100 unit/mL (3 mL) injection pen Inject into the skin. Active metFORMIN (GLUCOPHAGE) 500 mg tablet Take 1 Tablet by mouth 2 times daily (with meals). Active omeprazole (PriLOSEC) [address] capsule Take 1 capsule (40 mg total) by mouth 1 (one) time each day. Active silver sulfADIAZINE (SILVADENE, SSD) 1 % cream Apply topically to nail bed daily 4 Active polycarbophil (FIBERCON) 625 mg tablet Take 1 tablet (625 mg total) by mouth 1 (one) time each day. Active Active Problems Problem Noted Date Diagnosed Date Bronchitis 2023 Constipation 2023 Epigastric pain 2023 Essential hypertension 2023 Generalized bloating 2023 H. pylori infection 2023 Menopausal syndrome 2023 Mild intermittent asthma with acute exacerbation 2023 Onychomycosis 2023 T2DM (type 2 diabetes mellitus) ([facility] V24, [facility] V28) 2023 Vaginal infection 2023 Encounters Date Type Department Care Team Description 12/05/2024 Telephone Gastroenterology - [place] 175 [facility] [address] [facility] [address] [place] [address] Giovanna Galaviz NP from Last 3 Months Medical History Medical History Date Comments T2DM (type 2 diabetes [facility]) ([facility] V24, [facility] V28) DX:T2DM (type 2 diabetes krystyna litus) ([facility]) HTN (hypertension) DX:HTN (hyper tension) Onychomycosis DX:Onychomycosis Mild intermittent asthma wit h (acute) exacerbation DX:Mild intermittent asthma with (acute) exacerbation Constipation DX:Constipation Social History Tobacco Use Types Packs/Day Years Used Date Smoking Tobacco: Never Assessed Comments Unknown Sex and Gender Information Value Date Recorded Sex Assigned at Not on file Legal Sex Female 6:18 PM EST Gender Identity Not on file Sexual Orientation Not on file Obstetrics History Last Filed Vital Signs Vital Sign Reading Time Taken Comments Blood Pressure - - Pulse - - Temperature - - Respiratory Rate - - Oxygen Saturation - - Inhaled Oxygen Concentration - - Weight 90.3 kg (199 lb) 04/11/2024 10:42 AM EST Height 154.9 cm (5' 1 ) 12/30/2023 8:49 AM EDT Body Mass Index 37.6 12/30/2023 8:49 AM EDT Plan of Treatment Upcoming Encounters Date Type Department Care Team ([facility] st Contact Info) Description 01/09/2025 9:20 AM EDT Consult Gastroenterology - [place] [address] [facility] [address] [place] [address] Giovanna Galaviz NP [address] [address] Health Maintenance Due Date Last Done Comments Breast Cancer Screening 1966 Diabetes: Annual GFR (Glomerular Filtration Rate) 1966 Diabetes: Annual Foot Exam 1976 Diabetes: Annual Retina Eye Exam 1976 DTaP,Tdap,and Td Vaccines (1 - Tdap) 1985 Cervical Cancer Screening: Pap Smear 12/25/1987 Colorectal Cancer Screening: Colonoscopy 01/10/2024 HIV Screening 01/10/2024 Hepatitis C Screening 01/10/2024 Social Influencers of Health Screening 01/10/2024 COVID-19 Vaccine () 01/16/2024 05/25/2022, 06/18/2021, 10/17/2020, Additional history exists Diabetes: Annual Urine Albumin-Creatinine Ratio (uACR) 02/24/2024 Hypertension/CHF/CAD Annual BMP Blood Test 02/25/2024 Depression Screening 05/17/2024 Diabetes: Blood Sugar Control Test (HGBA1C) 07/20/2024 01/21/2024 Influenza Vaccine (#1) 2025 Cholesterol Screening (Lipid Panel) 12/19/2028 12/20/2023 Pneumococcal Vaccine: 50+ Years Completed 10/01/2023 Hepatitis B Vaccines Completed 01/21/2024, 12/13/19 24 Zoster Vaccines Completed 04/04/2024, 01/21/2024 HIB Vaccines Aged Out No longer eligi ble based on patient's age to complete this topic HPV Vaccines Aged Out No longer eligi ble based on patient's age to complete this topic Hepatitis A Vaccines Aged Out No long er eligible based on patient's age to complete this topic IPV Vaccines Aged Out No longer eligi ble based on patient's age to complete this topic MMR Vaccines Aged Out No longer eligi ble based on patient's age to complete this topic Meningococcal ACWY Vaccine Aged Out N o longer eligible based on patient's age to complete this topic Meningococcal B Vaccine Aged Out No l onger eligible based on patient's age to complete this topic RSV Immunization Patients Under 20 months Aged Out No longer eligible based on patient's age to complete this topic Varicella Vaccines Aged Out No longer eligible based on patient's age to complete this topic Insurance MEDICAID - [place] Care Teams Container Finishing Inspector Relationship Specialty Start Date End Date Apple Rivera MD [address] [place] [phone] PCP - General 10/06/23
--- OUTSIDE RECORDS SUMMARY | 2024-12-13 10:07 | XMS_ITS | Encounter Summary ---
Author Organization [employer] Address [address] [facility] 7t [place] [address] Care Team Providers Care Capital Campaign Fundraiser Name Role Phone Apple Rivera MD Primary Care Provide r Teresa Wolf PharmD Unavailable [phone] Reason for Visit * Reason Comments Med Refill Encounter Details Date Type Department Care Team ([facility] st Contact Info) Description 06/16/2024 Refill [facility] MEDICINE [address] [place], [place] [phone] Teresa Wolf, PharmD [address] [place] [address] Type 2 diabetes mellitus with hyperglycemia, with long-term current use of insulin ([facility]) Social History Tobacco Use Types Packs/Day Years [...] Care Team (Late st Contact Info) Description 12/26/2024 9:30 AM EDT Medication Management [facility] MEDICINE [address] [place] [address] Teresa Wolf, PharmD [address] [place] [address] 01/05/2025 11:15 AM EDT Office Visit [facility] MEDICINE [address] [place] [address] Apple Rivera MD [address] [place] [address] 01/26/2025 8:00 AM EDT Office Visit [facility] ADULT DENTAL [address] [place] [address] Jerry Reyesaris [address] [place] [address] 06/11/2025 10:00 AM EST Office Visit [facility] OPTOMETRY [address] [place] [address] Yudith Velázquez, СВЕТЛАНА 230 [place] [address] documented as of this encounter Goals Goal Patient Goal Type Associated Problems Recent Progress Patient-Stated? Author Blood Pressure < 140/90 Blood Pressure 130/78(2024 10:56 AM EDT) No Teresa Ramirez PharmD Consistently take Medications as Prescribed General No Teresa Ramirez PharmD Hemoglobin A1c < 7 Result Component 9.1( 9:32 AM EDT) No Teresa Ramirez PharmD documented as of this encounter Visit Diagnoses Diagnosis Type 2 diabetes mellitus with hyperglycemia, with long-term current use of insulin ([facility]) documented in this encounter Additional Health Concerns Assessment Noted Time PHQ-9 Depression Total Score: 0 12/13/19 24 9:31 AM EDT documented as of this encounter Care Teams Capital Campaign Fundraiser Relationship Specialty Start Date End Date Apple Rivera MD [address] [place] [address] PCP - General Family Medicine 10/31/19 Teresa Wolf PharmD [address] [place] [address] Pharmacist Internal Medicine 09/14/23 María Van Sld Educational AideYarn Carrier 05/19/23 David Mendez Sld Educational AideYarn Carrier 07/20/24 documented as of this encounter
== END 2024-12-13 09:36 | disposition home or self-care (01) ==
LOC: HO.US 09:35
PROVIDERS: PCP Internal Medicine; Visit Provider Nurse Practitioner Family
DX: K21.9 Gastro-esophageal reflux disease without esophagitis (principal); R10.13 Epigastric pain
CPT/HCPCS: 76700

== ENCOUNTER → 2024-12-13 09:36 | Outpatient (BNV) | payer MEDICAID, SELFPAY | PROVIDERS: PCP Internal Medicine; Visit Provider Nuclear Medicine | DX: K76.0 Fatty (change of) liver, not elsewhere classified (principal) | CPT/HCPCS: 76700 ==

== ENCOUNTER 2024-12-26 07:59 | Outpatient (REF) | payer MEDICAID, SELFPAY ==
--- OUTSIDE RECORDS SUMMARY | 2024-12-26 08:03 | XMS_ITS | Encounter Summary ---
Author Organization [employer] Address [address] [facility] 7t [place] [address] Care Team Providers Care Cotton Picking Machine Operator Name Role Phone Apple Rivera MD Primary Care Provide r Teresa Wolf PharmD Unavailable [phone] Reason for Visit * Reason Comments Med Refill Encounter Details Date Type Department Care Team ([facility] st Contact Info) Description 06/16/2024 Refill [facility] MEDICINE 230 [place], [place] [phone] Teresa Wolf, PharmD 230 [place] [address] Type 2 diabetes mellitus with hyperglycemia, with long-term current use of insulin ([facility]) Social History Tobacco Use Types Packs/Day Years [...] Description 12/26/2024 9:30 AM EDT Medication Management [facility] MEDICINE [address] [place] [address] Teresa Wolf, PharmD [address] [place] [address] 01/05/2025 11:15 AM EDT Office Visit [facility] MEDICINE [address] [place] [address] Apple Rivera MD [address] [place] [address] 01/26/2025 8:00 AM EDT Office Visit [facility] ADULT DENTAL [address] [place] [address] Jerry Reyesaris [address] [place] [address] 06/11/2025 10:00 AM EST Office Visit [facility] OPTOMETRY [address] [place] [address] Yudith Velázquez, СВЕТЛАНА [address] [place] [address] documented as of this encounter Goals Goal [...] hyperglycemia, with long-term current use of insulin ([facility]) documented in this encounter Additional Health Concerns Assessment Noted Time PHQ-9 Depression Total Score: 0 12/13/19 24 9:31 AM EDT documented as of this encounter Care Teams Cotton Picking Machine Operator Relationship Specialty Start Date End Date Apple Rivera MD 230 [place] [address] PCP - General Family Medicine 10/31/19 Teresa Wolf PharmD [address] [place] [address] Pharmacist Internal Medicine 09/14/23 María Van Children CounselorRestaurant Operations Manager 05/19/23 David Mendez Children CounselorRestaurant Operations Manager 07/20/24 documented as of this encounter
--- OUTSIDE RECORDS SUMMARY | 2024-12-26 08:03 | XMS_ITS | Clinical Summary ---
Author Organization [address] [place] [address] Address [address] [place] [address] Phone Care Team Providers Care Stretch Press Operator Name Role Phone Apple Rivera MD [...] Onychomycosis 2023 T2DM (type 2 diabetes mellitus) ([facility] V24, [facility] V28) 2023 Vaginal infection 2023 Encounters Date Type Department Care Team Description 12/05/2024 Telephone Gastroenterology - [place] 175 [facility] 175 [facility] [address] [place] [address] Giovanna Galaviz NP from Last 3 Months Medical History Medical History Date Comments T2DM (type 2 diabetes [facility]) ([facility] V24, [facility] V28) DX:T2DM (type 2 diabetes krystyna litus) ([facility]) HTN (hypertension) DX:HTN (hyper tension) Onychomycosis DX:Onychomycosis [...] Upcoming Encounters Date Type Department Care Team ([facility] st Contact Info) Description 01/09/2025 9:20 AM EDT Consult Gastroenterology - [place] [address] [place] 175 [facility] [address] [place] [address] Giovanna Galaviz NP [address] [address] Health Maintenance Due Date Last Done Comments [...] topic Insurance MEDICAID - [place] Care Teams Stretch Press Operator Relationship Specialty Start Date End Date Apple Rivera MD [address] [place] [phone] PCP - General 10/06/23
[2024-12-26 12:32] LABS: Cholesterol 189 mg/dL (<200); HDL Cholesterol 55 mg/dL (>40); Triglycerides 153 mg/dL (<150)
== END 2024-12-26 08:00 | disposition home or self-care (01) ==
LOC: HO.HHCL 07:59
PROVIDERS: PCP Internal Medicine; Visit Provider Internal Medicine
DX: E78.5 Hyperlipidemia, unspecified (principal)
CPT/HCPCS: 36415; 80061

== ENCOUNTER 2025-01-05 11:47 | Outpatient (REF) | payer MEDICAID, SELFPAY ==
--- NOTE | ~2025-01-05 | XR_ITS ---
EXAMINATION: XR HAND, RIGHT CLINICAL INFORMATION: pain COMPARISON: September 28, 2018. TECHNIQUE: PA, lateral, and oblique views of the right hand. FINDINGS: Joint space narrowing involving the middle and distal interphalangeal joints of the digits. Less conspicuous soft tissue calcifications adjacent to the distal interphalangeal joint of the second digit and the proximal and distal interphalangeal joint of the fifth digit. Degenerative changes in the radiocarpal joint. No subcutaneous emphysema. No metallic or radiopaque foreign body. No acute fracture or dislocation. XR/XR hand RT min 3V IMPRESSION: Mild osteoarthritis/osteoarthrosis. Electronically signed by: Jn Hummel MD 01/05/2025 12:19 PM EDT
--- OUTSIDE RECORDS SUMMARY | 2025-01-05 11:50 | XMS_ITS | Encounter Summary ---
Author Organization [employer] Address [address] [facility] 7t [place] [address] Care Team Providers Care Redevelopment Specialist Name Role Phone Apple Rivera MD Primary Care Provide r Teresa Wolf PharmD Unavailable [phone] Reason for Visit * Reason Comments Med Refill Encounter Details Date Type Department Care Team ([facility] st Contact Info) Description 06/16/2024 Refill [facility] MED[facility]INE [address] [place], [place] [phone] Teresa Wolf, PharmD 230 [place] [address] Type 2 diabetes mellitus with hyperglycemia, with long-term current use of insulin ([facility]) Social History Tobacco Use Types Packs/Day Years [...] Care Team (Late st Contact Info) Description 01/22/2025 9:00 AM EDT Medication Management [facility] [address] [place] [address] Teresa Wolf PharmD [address] [place] [address] 01/26/2025 8:00 AM EDT Office Visit [facility] ADULT DENTAL [address] [place] [address] Eric, Geeta [address] [place] [address] 06/11/2025 10:00 AM EST Office Visit [facility] OPTOMETRY [address] [place] [address] Eber, Yudith, OD 230 [place] [address] documented as of this encounter Goals Goal Patient Goal Type Associated Problems Recent Progress Patient-Stated? Author Blood Pressure < 140/90 Blood Pressure 140/82(2024 11:15 AM EDT) No Teresa Ramirez PharmD Consistently take Medications as Prescribed General Teresa Up PharmD Hemoglobin A1c < 7 Result Component 9.1( 5 9:32 AM EDT) No Teresa Ramirez PharmD documented as of this encounter Visit Diagnoses Diagnosis Type 2 diabetes mellitus with hyperglycemia, with long-term current use of insulin ([facility]) documented in this encounter Additional Health Concerns Assessment Noted Time PHQ-9 Depression Total Score: 0 12/13/19 24 9:31 AM EDT documented as of this encounter Care Teams Redevelopment Specialist Relationship Specialty Start Date End Date Apple Rivera MD [address] [place] [address] PCP - General Family Medicine 10/31/19 Teresa Wolf PharmD [address] [place] [address] Pharmacist Internal Medicine 09/14/23 María Van Board WriterWall Man 05/19/23 David Mendez Board WriterWall Man 07/20/24 documented as of this encounter
--- OUTSIDE RECORDS SUMMARY | 2025-01-05 11:50 | XMS_ITS | Clinical Summary ---
Author Organization [address] [place] [address] Address 175 [place] [address] Phone Care Team Providers Care Snuff Maker Name Role Phone Apple Rivera MD Primary [...] Onychomycosis 2023 T2DM (type 2 diabetes mellitus) ([facility] V24, [facility] V28) 2023 Vaginal infection 2023 Encounters Date Type Department Care Team Description 12/05/2024 Telephone Gastroenterology - [place] 175 [facility] 175 [facility] [address] [place] [address] Giovanna Galaviz NP from Last 3 Months Medical History Medical History Date Comments T2DM (type 2 diabetes [facility]) ([facility] V24, [facility] V28) DX:T2DM (type 2 diabetes krystyna litus) ([facility]) HTN (hypertension) DX:HTN (hyper tension) Onychomycosis DX:Onychomycosis [...] Upcoming Encounters Date Type Department Care Team ([facility] st Contact Info) Description 01/09/2025 9:20 AM EDT Consult Gastroenterology - [place] [address] [place] [address] [facility] [address] [place] [address] Giovanna Galaviz NP [address] [address] Health Maintenance Due Date Last Done Comments Breast Cancer Screening 1966 Diabetes: Annual Foot Exam 1976 Diabetes: Annual Retina Eye Exam 1976 DTaP,Tdap,and Td Vaccines (1 - Tdap) 1985 Cervical Cancer Screening: Pap Smear 12/25/1987 Colorectal Cancer Screening: Colonoscopy 01/10/2024 HIV Screening 01/10/2024 Hepatitis C Screening 01/10/2024 Social Influencers of Health Screening 01/10/2024 COVID-19 Vaccine ( season) 2024 05/25/2022, 06/18/2021, 10/17/2020, Additional history exists Diabetes: Annual Urine Albumin-Creatinine Ratio (uACR) 02/24/2024 Depression Screening 05/17/2024 Diabetes: Blood Sugar Control Test (HGBA1C) 07/20/2024 01/21/2024 Diabetes: Annual GFR (Glomerular Filtration Rate) 10/18/2024 10/19/2023, 09/21/2023 Hypertension/CHF/CAD Annual BMP Blood Test 10/18/2024 10/19/2023, 09/21/2023 Influenza Vaccine (#1) 2025 Cholesterol Screening (Lipid Panel) 12/19/2028 12/20/2023, 09/21/2023 Pneumococcal Vaccine: 50+ Years Completed 10/01/2023 Hepatitis [...] topic Insurance MEDICAID - [place] Care Teams Snuff Maker Relationship Specialty Start Date End Date Apple Rivera MD [address] [place] [phone] PCP - General 10/06/23
== END 2025-01-05 11:48 | disposition home or self-care (01) ==
LOC: HO.HHCX 11:47
PROVIDERS: PCP Internal Medicine; Visit Provider Internal Medicine
DX: M79.641 Pain in right hand (principal)
CPT/HCPCS: 73130

== ENCOUNTER → 2025-01-05 11:57 | Outpatient (BNV) | payer MEDICAID, SELFPAY | PROVIDERS: PCP Internal Medicine; Visit Provider Radiology Diagnostic Radiology | DX: M19.041 Primary osteoarthritis, right hand (principal) | CPT/HCPCS: 73130 ==

== ENCOUNTER 2025-01-16 06:55 | Outpatient (REF) | payer MEDICAID, SELFPAY ==
--- NOTE | ~2025-01-16 | FL_ITS ---
EXAMINATION: XR BARIUM SWALLOW CLINICAL INFORMATION: Dysphagia. COMPARISON: None available. TECHNIQUE: Routine upright barium swallow was performed with thick barium and barium coated cracker. Thin barium was administered in prone lying position. FINDINGS: Following oral administration of thick barium there is normal propagation bolus of oral contrast from the oral cavity through the pharynx, esophagus into stomach without any evidence of obstruction, narrowing or stricture. No extrinsic compression. On oral administration of barium coated saltine crackers is normal oral mastication and propagation of solid food from the oral cavity, pharynx and esophagus. Thin barium was administered to propagate bolus from the mid esophagus into the stomach. The gastroesophageal junction is widely patent. On placing patient prone lying and oral administration of thin barium there is good distention of entire esophagus without intraluminal filling defect or narrowing. No extrinsic compression seen. There is no laryngeal penetration, aspiration or retention of barium in the valleculae or piriform sinuses FLUOROSCOPY TIME: 2 minutes and 6 seconds DOSE AREA PRODUCT: 1547 uGy-m2 (microgray-meter squared) FL/FL barium swallow IMPRESSION: Normal barium swallow. Electronically signed by: Franck Capone MD 01/16/2025 11:22 AM EDT
--- OUTSIDE RECORDS SUMMARY | 2025-01-16 06:57 | XMS_ITS | Encounter Summary ---
Author Organization [employer] Address 75 [facility] 7t [place] [address] Care Team Providers Care Md Psychiatry Name Role Phone Apple Rivera MD Primary Care Provide r Teresa Wolf PharmD Unavailable [phone] Reason for Visit * Reason Comments Med Refill Encounter Details Date Type Department Care Team ([facility] st Contact Info) Description 06/16/2024 Refill [facility] MEDICINE [address] [place], [place] [phone] Teresa Wolf, PharmD 230 [place] [address] Type 2 diabetes mellitus with hyperglycemia, with long-term current use of insulin ([facility]) Social History Tobacco Use Types Packs/Day [...] Description 01/22/2025 9:00 AM EDT Medication Management [facility] MEDICINE [address] [place] [address] Teresa Wolf PharmD [address] [place] [address] 01/26/2025 8:00 AM EDT Office Visit [facility] ADULT DENTAL [address] [place] [address] Eric, Geeta [address] [place] [address] 06/11/2025 10:00 AM EST Office Visit [facility] OPTOMETRY [address] [place] [address] Eber, Yudith, OD 230 [place] [address] documented as of this encounter Goals Goal [...] hyperglycemia, with long-term current use of insulin ([facility]) documented in this encounter Additional Health Concerns Assessment Noted Time PHQ-9 Depression Total Score: 0 12/13/19 24 9:31 AM EDT documented as of this encounter Care Teams Md Psychiatry Relationship Specialty Start Date End Date Apple Rivera MD [address] [place] [address] PCP - General Family Medicine 10/31/19 Teresa Wolf PharmD [address] [place] [address] Pharmacist Internal Medicine 09/14/23 María Van Sewer Pipe LayerAfternoon Nanny 05/19/23 David Mendez Sewer Pipe LayerAfternoon Nanny 07/20/24 documented as of this encounter
--- OUTSIDE RECORDS SUMMARY | 2025-01-16 06:57 | XMS_ITS | Encounter Summary ---
Author Organization [employer] Address [address] [facility] 7t [place] [address] Care Team Providers Care Pawn Broker Name Role Phone Apple Rivera MD Primary Care Provide r Teresa Wolf PharmD Unavailable [phone] Reason for Visit * Reason Comments Med Refill Encounter Details Date Type Department Care Team ([facility] st Contact Info) Description 06/26/2024 Refill [facility] MEDICINE [address] [place], [place] [phone] Teresa Wolf, PharmD [address] [place] [address] Essential hypertension Social History Tobacco Use Types Packs/Day Years [...] Description 01/22/2025 9:00 AM EDT Medication Management [facility] MEDICINE [address] [place] [address] Teresa Wolf, PharmD [address] [place] [address] 01/26/2025 8:00 AM EDT Office Visit [facility] ADULT DENTAL [address] [place] [address] Eric, Geeta [address] [place] [address] 06/11/2025 10:00 AM EST Office Visit [facility] OPTOMETRY [address] [place] [address] Eber, Yudith, OD 230 [place] [address] documented as of this encounter Goals Goal Patient Goal Type Associated Problems Recent Progress Patient-Stated? Author Blood Pressure < 140/90 Blood Pressure 140/82(2024 11:15 AM EDT) No Teresa Ramirez PharmD Consistently take Medications as Prescribed General No Teresa Ramirez PharmD Hemoglobin A1c < 7 Result Component 9.1( 5 9:32 AM EDT) No Teresa Ramirez PharmD documented as of this encounter Visit Diagnoses Diagnosis Essential hypertension Unspecified essential hypertension documented in this encounter Additional Health Concerns Assessment Noted Time PHQ-9 Depression Total Score: 0 12/13/19 24 9:31 AM EDT documented as of this encounter Care Teams Pawn Broker Relationship Specialty Start Date End Date Apple Rivera MD [address] [place] [address] PCP - General Family Medicine 10/31/19 Teresa Wolf PharmD [address] [place] [address] Pharmacist Internal Medicine 09/14/23 María Van Claim SpecialistWarp Tying Machine Tender 05/19/23 David Mendez Claim SpecialistWarp Tying Machine Tender 07/20/24 documented as of this encounter
--- OUTSIDE RECORDS SUMMARY | 2025-01-16 06:57 | XMS_ITS | Encounter Summary ---
Author Organization [employer] Address 75 [facility] 7t [place] [address] Care Team Providers Care Manager Of Human Resources Name Role Phone Apple Rivera MD Primary Care Provide r Teresa Wolf PharmD Unavailable [phone] Reason for Visit * Reason Comments Med Refill Encounter Details Date Type Department Care Team ([facility] st Contact Info) Description 07/17/2024 Refill [facility] [address] [place], [place] [phone] Teresa Wolf, PharmD [address] [place] [address] Type 2 diabetes mellitus with hyperglycemia, with long-term current use of insulin ([facility]) Social History Tobacco Use Types Packs/Day [...] Description 01/22/2025 9:00 AM EDT Medication Management [facility] [address] [place] [address] Teresa Wolf PharmD [address] [place] [address] 01/26/2025 8:00 AM EDT Office Visit [facility] ADULT [facility] [address] [place] [address] Eric, Geeta [address] [place] [address] 06/11/2025 10:00 AM EST Office Visit [facility] OPTOMETRY [address] [place] [address] Eber, Yudith, OD 230 [place] [address] documented as of this encounter Goals Goal [...] hyperglycemia, with long-term current use of insulin ([facility]) documented in this encounter Additional Health Concerns Assessment Noted Time PHQ-9 Depression Total Score: 0 12/13/19 24 9:31 AM EDT documented as of this encounter Care Teams Manager Of Human Resources Relationship Specialty Start Date End Date Apple Rivera MD [address] [place] [address] PCP - General Family Medicine 10/31/19 Teresa Wolf PharmD [address] [place] [address] Pharmacist Internal Medicine 09/14/23 María Van Geophysics ScientistCyanide Pot Hardener 05/19/23 David Mendez Geophysics ScientistCyanide Pot Hardener 07/20/24 documented as of this encounter
--- OUTSIDE RECORDS SUMMARY | 2025-01-16 06:58 | XMS_ITS | Encounter Summary ---
Author Organization [employer] Address [address] [facility] 7t [place] [address] Care Team Providers Care Plant Safety Leader Name Role Phone Apple Rivera MD Primary Care Provide r Teresa Wolf PharmD Unavailable [phone] Encounter Details Date Type Department Care Team (Latest Contact Info) Description 07/27/2019 Abstract [facility] CONVERSIONS Dental, Provider, DDS Social History Tobacco Use Types Packs/Day Years [...] Upcoming Encounters Date Type Department Care Team ( st Contact Info) Description 01/22/2025 9:00 AM EDT Medication Management [facility] MEDICINE [address] [place] [address] Teresa Wolf, PharmD 230 [place] [address] 01/26/2025 8:00 AM EDT Office Visit [facility] ADULT DENTAL [address] [place] [address] Eric, Geeta [address] [place] [address] 06/11/2025 10:00 AM EST Office Visit [facility] OPTOMETRY [address] [place] [address] Yudith Velázquez, OD 230 [place], [place] [phone] documented as of this encounter Visit Diagnoses Not on filedocumented in this encounter Care Teams Plant Safety Leader Relationship Specialty Start Date End Date Apple Rivera MD 230 [place] [address] PCP - General Family Medicine 10/31/19 Teresa Wolf, MarkD [address] [place], [place] [phone] Pharmacist Internal Medicine 09/14/23 María Van Cardroom SupervisorPaper Pattern Inspector 05/19/23 David Mendez Cardroom SupervisorPaper Pattern Inspector 07/20/24 documented as of this encounter
--- OUTSIDE RECORDS SUMMARY | 2025-01-16 06:58 | XMS_ITS | Encounter Summary ---
Author Organization [employer] Address [address] [facility] [address] [place] [address] Care Team Providers Care Slack Cooper Name Role Phone Apple Rivera MD Primary Care Provide r Teresa Wolf PharmD Unavailable [phone] Encounter Details Date Type Department Care Team (Late Contact Info) Description 01/27/2023 Orders Only [facility] MEDICINE [address] [place] [address] Provider, MD Sage Social History Tobacco Use Types Packs/Day Years Used Date Smoking Tobacco: Never Passive Smoke Exposure: Never Smokeless Tobacco: Never Alcohol Use Standard Drinks/Week Comments Never 0 (1 standard drink = 0.6 oz pur e alcohol) Depression Answer Date Recorded Patient Health Questionnaire-9 Score 0 09/29/2022 Depression Answer Date Recorded Patient Health Questionnaire-2 Score 2 10/27/2022 Comments Unknown Sex and Gender Information Value Date Recorded Sex Assigned at Female 03/16/2022 10:34 AM EDT Legal Sex Female 10:34 AM EDT Gender Identity Female 03/16/2022 10:34 AM EDT Sexual Orientation Choose not to disclose 2021 10:34 AM EDT documented as of this encounter Plan of Treatment Upcoming Encounters Date Type Department Care Team (Late Contact Info) Description 01/22/2025 9:00 AM EDT Medication Management [facility] MEDICINE [address] [place] [address] Teresa Wolf, PharmD [address] [place] [address] 01/26/2025 8:00 AM EDT Office Visit [facility] ADULT DENTAL [address] [place] [address] Eric, Geeta [address] [place] [address] 06/11/2025 10:00 AM EST Office Visit [facility] OPTOMETRY [address] [place] [address] Eber, Yudith, OD [address] [place] [address] documented as of this encounter Procedures Procedure Name Priority Date/Time Associated Diagnosis Comments ALBUMIN, RANDOM URINE W/CREATININE Routine 10/19/2023 10:39 AM EDT BASIC METABOLIC PANEL Routine 10/19/2023 10:39 AM EDT VITAMIN D,25-OH,TOTAL,IA Routine 10/01/2023 11:16 AM EDT VITAMIN B12 Routine 09/21/2023 8:20 AM EDT HEPATIC FUNCTION PANEL Routine 09/21/2023 8:20 AM EDT LIPID PANEL, STANDARD Routine 09/21/2023 8:20 AM EDT BASIC METABOLIC PANEL Routine 09/21/2023 8:20 AM EDT HM COLONOSCOPY Routine 12/20/2018 documented in this encounter Results * Albumin, Random Urine W/Creatinine (10/19/2023 10:39 AM EDT) Creatinine, Urine 24.51 mg/dL [facility] Microalbumin Urine <5.0 mg/L H [facility] Microalbum Creatinine Ratio Ur TNP <30 ug/mg cr [facility] Comment:Unable to calculate albumin/creatinine ratio due to lowmicroalbumin or creatinine result. 10/19/2023 10:3 9 AM EDT 10/19/2023 12:06 PM EDT us Apple Crowder MD LAB URINE ORDERABLES Final Result Performing Organization Address [facility] Co de Phone Number [facility] [address] [place] [address] [phone] * (ABNORMAL) Basic Metabolic Panel (10/19/2023 10:39 AM EDT) Sodium 137 135 - 145 mmol/L [facility] Potassium 4.8 3.3 - 5.1 mmol/L [facility] Chloride 96 96 - 108 mmol/L [facility] Carbon Dioxide 26 22 - 29 mmol/L [facility] Anion Gap 20 12 - 20 [facility] Urea Nitrogen (BUN) 20(H) 9 - 16 mg/dL [facility] Creatinine, Serum 0.90 0.5 - 1.4 mg/dL [facility] Estimated Glomerular Filt Rate >60 [facility] Comment:NOTE: For -Am erican individuals, multiply the result by 1.210.Chronic Kidney Disease: Estimated GFR < 60 mL/min/1.57m6Pqndvf Kidney Disease: Estimated GFR < 15 mL/min/1.73m2 Glucose 262(H) 60 - 115 mg/dL [facility] Calcium 10.2 8.4 - 10.2 mg/dL [facility] 10/19/2023 10:3 9 AM EDT 10/19/2023 11:48 AM EDT Apple Crowder MD LAB BLOOD ORDERABLES Final Result Performing Organization Address [facility]/ZIP Co de Phone Number [facility] [address] [place] [phone] * (ABNORMAL) Vitamin D, 25-Hydroxy, Total, Immunoassay (10/01/2023 11:16 AM EDT) Vitamin D 25-OH Total 23.7(L) >30 ng/mL [facility] Comment:Health Based Referen ce Values*< 20 ng/mL Fuuhcxsgi55-97 ng/mL Insufficient> 30 ng/mL Sufficient*Morteza WINSTON. N Engl J Med. 2007;357:266-280Care must be taken in interpreting Vitamin D results fromdifferent laboratories and methodologies. Published datademonstrated that results from patients undergoinghemodialysis may show a negative bias when tested withvarious automated 25-OH vitamin D assays when compared toLC-MS/MS.When testing samples from patients whose predominant form ofVitamin D is Vitamin D2, such as patients receiving VitaminD2 supplementation, results that are subtherapeutic shouldbe confirmed with another method such as LC-MS/MS. 10/01/2023 11:1 6 AM EDT 10/01/2023 1:09 PM EDT us Apple Crowder MD LAB BLOOD ORDERABLES Final Result Performing Organization Address [facility] Co de Phone Number [facility] [address] [place] [phone] * Vitamin B12 (09/21/2023 8:20 AM EDT) Vitamin B12 293 200 - 900 pg/mL [facility] Comment:NORMAL 200-900 PG/ML INDETERMINATE 160-199 PG/ML DEFICIENT < 160 PG/ML 09/21/2023 8:20 AM EDT 09/21/2023 11:41 AM EDT us Apple Crowder MD LAB BLOOD ORDERABLES Final Result Performing Organization Address [facility] Co de Phone Number [facility] [address] [place] [phone] * (ABNORMAL) Lipid Panel, Standard (09/21/2023 8:20 AM EDT) Triglycerides 139 <150 mg/dL [facility] Comment:Desirable Triglyceri de: less than 150 mg/dLBorderline High Triglyceride 150-199 mg/dLHigh Triglyceride: 200-499 mg/dLVery High Triglyceride: greater than or equal to 5OO mg/dL Cholesterol 236(H) <200 mg/dL [facility] Comment:Desirable Cholestero l: less than 200 mg/dLBorderline High Cholesterol: 200-239 mg/dLHigh Cholesterol: greater than 239 mg/dL LDL Cholesterol Calculated 144(H) <100 mg/dL [facility] Comment:Desirable LDL: less than 100 mg/dLNear Optimal/Above Optimal LDL: 110- 129 mg/dLBorderline High LDL: 130-159 mg/dLHigh LDL: 160-189 mg/dLVery High LDL: greater than or equal to 190 mg/dL HDL Cholesterol 65 >40 mg/dL [facility] Comment:Desirable HDL: great er than 40 mg/dL Note: This HDL assay may give artificially low results in patients with liver disease. 09/21/2023 8:20 AM EDT 09/21/2023 11:41 AM EDT us Apple Crowder MD LAB BLOOD ORDERABLES Final Result [facility] [address] [place] [phone] * (ABNORMAL) Basic Metabolic Panel (09/21/2023 8:20 AM EDT) Sodium 140 135 - 145 mmol/L [facility] Potassium 4.5 3.3 - 5.1 mmol/L [facility] Chloride 104 96 - 108 mmol/L [facility] Carbon Dioxide 24 22 - 29 mmol/L [facility] Anion Gap 17 12 - 20 [facility] Urea Nitrogen (BUN) 20(H) 9 - 16 mg/dL [facility] Creatinine, Serum 0.78 0.5 - 1.4 mg/dL [facility] Estimated Glomerular Filt Rate >60 [facility] Comment:NOTE: For -Am erican individuals, multiply the result by 1.210.Chronic Kidney Disease: Estimated GFR < 60 mL/min/1.48d4Pthwim Kidney Disease: Estimated GFR < 15 mL/min/1.73m2 Glucose 208(H) 60 - 115 mg/dL [facility] Calcium 9.9 8.4 - 10.2 mg/dL [facility] 09/21/2023 8:20 AM EDT 09/21/2023 11:41 AM EDT us Apple Crowder MD LAB BLOOD ORDERABLES Final Result Performing Organization Address City/[facility] Co de Phone Number [facility] [address] [place] [phone] * Hepatic Function Panel (09/21/2023 8:20 AM EDT) Bilirubin, Total 0.5 0.0 - 1.0 mg/dL [facility] Bilirubin, Direct 0.2 0.0 - 0.5 mg/dL [facility] Aspartate Amino Transferase 15 5 - 31 U/L [facility] Alanine Aminotransferase 16 0 - 31 U/L [facility] Total Protein 7.6 6.5 - 8.0 g/dL [facility] Albumin Level 4.2 3.5 - 5.0 g/dL [facility] Alkaline Phosphatase 73 39 - 117 U/L [facility] 09/21/2023 8:20 AM EDT 09/21/2023 11:41 AM EDT us Apple Crowder MD LAB BLOOD ORDERABLES Final Result Performing Organization Address City/[facility] Co de Phone Number [facility] [address] [place] [phone] * Colonoscopy (12/20/2018) us Historical Provider HEALTH MAINTENANCE Final Result documented in this encounter Visit Diagnoses Not on filedocumented in this encounter Additional Health Concerns Assessment Noted Time PHQ-9 Depression Total Score: 0 09/30/19 23 9:12 AM EDT documented as of this encounter Care Teams Slack Cooper Relationship Specialty Start Date End Date Apple Rivera MD [address] [place] [phone] PCP - General Family Medicine 10/31/19 Teresa Wolf, MarkD [address] [place] [address] Pharmacist Internal Medicine 09/14/23 María Van Incoming InspectorDirector Of Vendor Management 05/19/23 David Mendez Incoming InspectorDirector Of Vendor Management 07/20/24 documented as of this encounter
--- OUTSIDE RECORDS SUMMARY | 2025-01-16 06:58 | XMS_ITS | Encounter Summary ---
Author Organization [employer] Address [address] [facility] [address] [place] [address] Care Team Providers Care Finance Advisor Name Role Phone Apple Rivera MD Primary Care Provide r Teresa Wolf PharmD Unavailable [phone] Encounter Details Date Type Department Care Team (Latest Contact Info) Description 10/31/2021 Abstract [facility] CONVERSIONS Dental, Provider, DDS Social History [...] Description 01/22/2025 9:00 AM EDT Medication Management [facility] MEDICINE [address] [place] [address] Teresa Wolf, PharmD [address] [place] [address] 01/26/2025 8:00 AM EDT Office Visit [facility] ADULT DENTAL [address] [place] [address] Eric, Geeta [address] [place] [address] 06/11/2025 10:00 AM EST Office Visit [facility] OPTOMETRY [address] [place] [address] Yudith Velázquez, OD [address] [place], [place] [phone] documented as of this encounter Visit Diagnoses Not on filedocumented in this encounter Care Teams Finance Advisor Relationship Specialty Start Date End Date Apple Rivera MD [address] [place] [address] PCP - General Family Medicine 10/31/19 Teresa Wolf, MarkD [address] [place], [place] [phone] Pharmacist Internal Medicine 09/14/23 María Van Mitten SewerChief Engineer Waterworks 05/19/23 David Mendez Mitten SewerChief Engineer Waterworks 07/20/24 documented as of this encounter
--- OUTSIDE RECORDS SUMMARY | 2025-01-16 06:58 | XMS_ITS | Encounter Summary ---
Author Organization [employer] Address [address] [facility] [address] [place] [address] Care Team Providers Care Chair Mechanic Name Role Phone Apple Rivera MD Primary Care Provide r Teresa Wolf PharmD Unavailable [phone] Reason for Visit * Reason Comments Med Refill Encounter Details Date Type Department Care Team ([facility] Contact Info) Description 01/22/2024 Refill [facility] MEDICINE [address] [place], [place] [phone] Teresa Wolf, PharmD [address] [place] [address] Type 2 diabetes mellitus with hyperglycemia, with long-term current use of insulin ([facility]) Social History Tobacco Use Types [...] Description 01/22/2025 9:00 AM EDT Medication Management [facility] MEDICINE [address] [place] [address] Teresa Wolf PharmD [address] [place] [address] 01/26/2025 8:00 AM EDT Office Visit [facility] ADULT DENTAL [address] [place] [address] Eric, Geeta [address] [place] [address] 06/11/2025 10:00 AM EST Office Visit [facility] OPTOMETRY [address] [place] [address] Eber, Yudith, OD [address] [place] [address] documented as of this encounter Goals Goal [...] hyperglycemia, with long-term current use of insulin ([facility]) documented in this encounter Additional Health Concerns Assessment Noted Time PHQ-9 Depression Total Score: 0 12/13/19 24 9:31 AM EDT documented as of this encounter Care Teams Chair Mechanic Relationship Specialty Start Date End Date Apple Rivera MD [address] [place] [address] PCP - General Family Medicine 10/31/19 Teresa Wolf PharmD [address] [place] [address] Pharmacist Internal Medicine 09/14/23 María Van Supervisor Throwing DepartmentCampus Recruiter 05/19/23 David Mendez Supervisor Throwing DepartmentCampus Recruiter 07/20/24 documented as of this encounter
--- OUTSIDE RECORDS SUMMARY | 2025-01-16 06:58 | XMS_ITS | Clinical Summary ---
Author Organization [employer] Address [address] [place] [address] Care Team Providers Care Bottle Tester Name Role Phone Apple Rivera MD Primary Care Provide r Teresa Wolf PharmD Unavailable [phone]- [phone] Allergies Active Allergy Reactions Criticality Noted Date Comments Mayur Inhibitors Cough 05/02/2024 Medications Continuous Blood Gluc Lgsw (FreeStyle Marquis 2 [place]) deviceIndicatio ns:Type 2 diabetes mellitus with hyperglycemia, with long-term current use of insulin ([facility]) Scan sensor every 8 hours 1 each 024 Active glucagon (Baqsimi) 3 MG/DOSE nasal powder Use if needed for low blood sugar emergencies by administering one full dose in one nostril as directed. If there is no response after 15 minutes, may administer a second dose as directed. 2 each 3 024 Active atorvastatin (Lipitor) 40 MG tabletIndicatio ns:Type 2 diabetes mellitus with hyperglycemia, with long-term current use of insulin ([facility]) TAKE 1 TABLET BY MOUTH EVERY EVENING 90 tablet 3 024 Active empagliflozin-m etFORMIN ER (Synjardy XR) 25-1000 MG 24 hr tabletIndicatio ns:Type 2 diabetes mellitus with hyperglycemia, with long-term current use of insulin ([facility]) TAKE 1 TABLET BY MOUTH EVERY MORNING 90 tablet 3 025 Active amLODIPine-olme sartan (Diamante) 10-20 MG tabletIndicatio ns:Essential hypertension Take 1 tablet by mouth Once per day. 90 tablet 3 025 Active glucose (Glutose) 40 % gel oral gelIndications: Type 2 diabetes mellitus with hyperglycemia, with long-term current use of insulin ([facility]) Take 15 g by mouth if needed for low blood sugar. 45 g 11 Active Fiber-Lax 625 MG tabletIndicatio ns:Constipation , unspecified constipation type TAKE 1 TABLET BY MOUTH EVERY MORNING 90 tablet 1 Active hydroCHLOROthia zide 12.5 MG tabletIndicatio ns:Essential hypertension TAKE 1 TABLET BY MOUTH EVERY MORNING 90 tablet 1 Active cyanocobalamin (Vitamin B-12) 1000 MCG tabletIndicatio ns:B12 deficiency TAKE 1 TABLET BY MOUTH EVERY MORNING 90 tablet 1 Active docusate sodium (Colace) 100 MG capsule Take 1 capsule (100 mg) by mouth if needed in the morning and at bedtime for constipation. 60 capsule 2025 Active Lancets 33G miscIndications :Type 2 diabetes mellitus with hyperglycemia, with long-term current use of insulin ([facility]) USE TO CHECK BLOOD SUGAR THREE TIMES DAILY 100 each Active Continuous Glucose Sensor (FreeStyle Marquis 2 Plus Sensor) miscIndications :Type 2 diabetes mellitus with hyperglycemia, with long-term current use of insulin ([facility]) 1 each Use as directed. Test blood sugar every 8 hours 2 each Active ezetimibe (Zetia) 10 MG tabletIndicatio ns:Dyslipidemia Take 1 tablet (10 mg) by mouth Once per day. 30 tablet 2025 Active FreeStyle Precision Juma Test test strip TEST BLOOD SUGAR EVERY 8 HOURS Active pantoprazole (ProtoNix) 40 MG EC tablet Take 40 mg by mouth before breakfast. Do not crush, chew, or split. Active Ventolin HFA 108 (90 Base) MCG/ACT inhalerIndicati ons:Mild intermittent asthma with acute exacerbation INHALE 2 PUFFS BY MOUTH EVERY 6 HOURS NEEDED FOR WHEEZING 18 g 1 Active Bisacodyl EC 5 MG EC tablet TAKE 4 TABLETS BY MOUTH ONCE DIRECTED BY YOUR DOCTOR OF COLONOSCOPY Active polyethylene glycol, PEG, 3350 (Glycolax) 17 GM/SCOOP powder MIX WITH WATER DIRECTED, THEN FOLLOW INSTRUCTION SHEET GIVEN TO YOU AT YOUR DOCTOR'S OFFICE DIRECTED. Active Citrucel 500 MG tablet Take 1 tablet by mouth 2 times daily. Active insulin glargine (Lantus SoloStar) 100 UNIT/ML penIndications: Type 2 diabetes mellitus with hyperglycemia, with long-term current use of insulin ([facility]) INJECT 38 UNITS SUBCUTANEOUSLY ONCE DAILY Active insulin lispro (HumaLOG KWIKPEN) 100 UNIT/ML injectionIndica tions:Type 2 diabetes mellitus with hyperglycemia, with long-term current use of insulin ([facility]) Inject subcutaneously twice daily 4 units before lunch and 6 units before dinner. Do not use if skipping meal. Active pen needle 32G x 4 mm miscIndications :Type 2 diabetes mellitus with hyperglycemia, with long-term current use of insulin ([facility]) USE WITH INSULIN ADMINISTRATION THREE TIMES DAILY 100 each 11 025 2025 Active Tirzepatide (Mounjaro) 2.5 MG/0.5ML solution auto-injectorIn dications:Type 2 diabetes mellitus with hyperglycemia, with long-term current use of insulin ([facility]) Inject 2.5 mg under the skin every 7 (seven) days. 2 mL 3 Active citalopram (CeleXA) 20 MG tabletIndicatio ns:Mood disorder ([facility]) TAKE 1 TABLET BY MOUTH EVERY MORNING 90 tablet Active Ventolin HFA 108 (90 Base) MCG/ACT inhalerIndicati ons:Mild intermittent asthma with acute exacerbation INHALE 2 PUFFS BY MOUTH EVERY 6 HOURS NEEDED FOR WHEEZING 18 g 1 025 2024 Discontinued citalopram (CeleXA) 20 MG tabletIndicatio ns:Mood disorder ([facility]) TAKE 1 TABLET BY MOUTH EVERY MORNING 90 tablet 025 2024 Discontinued insulin glargine (Lantus SoloStar) 100 UNIT/ML penIndications: Type 2 diabetes mellitus with hyperglycemia, with long-term current use of insulin ([facility]) INJECT 34 UNITS SUBCUTANEOUSLY ONCE DAILY 15 mL 3 025 2024 Discontinued pen needle 32G x 4 mm miscIndications :Type 2 diabetes mellitus with hyperglycemia, with long-term current use of insulin ([facility]) USE WITH INSULIN ADMINISTRATION TWICE DAILY 100 each 11 025 2024 Discontinued insulin lispro (HumaLOG KWIKPEN) 100 UNIT/ML injectionIndica tions:Type 2 diabetes mellitus with hyperglycemia, with long-term current use of insulin ([facility]) Inject subcutaneously 4 units once daily before dinner. Do not use if skipping meal. 15 mL 3 025 2024 Discontinued METHYLCELLULOSE , LAXATIVE, PO Take 1 tablet by mouth twice daily 2024 Discontinued(M ed list cleanup (will not trigger notification to Pharmacy)) Active Problems Problem Noted Date Diagnosed Date Right hand pain 01/05/2025 Assessment & Plan (01/05/2025 3:28 PM EDT): X-ray ordered Referral pain to hand surgery Mild intermittent asthma without complication Assessment & Plan (01/05/2025 3:28 PM EDT): Stable continue same interventions Slow transit constipation 10/05/2024 Pain in both feet 10/05/2024 Assessment & Plan (10/05/2024 10:59 AM EDT): Podiatry referral done Primary osteoarthritis of left knee 10/05/2024 Assessment & Plan (01/05/2025 3:28 PM EDT): Orthopedics referral in Assessment & Plan (10/05/2024 11:00 AM EDT): Orthopedics referral done today Colon cancer screening 10/05/2024 Anxiety 10/05/2024 Assessment & Plan (10/05/2024 10:59 AM EDT): Counseling done Continue with Celexa 20 mg daily To continue to follow-up with therapist Dental calculus 01/24/2024 Gingival bleeding 01/24/2024 Missing teeth, acquired 01/24/2024 Generalized gingival recession 01/24/2024 Encounter for cervical Pap smear with pelvic exa m 12/13/2023 Onychomycosis 10/01/2023 Encounter for screening mamm ogram for malignant neoplasm of breast 10/01/2023 Bronchitis 07/08/2023 Assessment & Plan (07/08/2023 1:11 PM EST): Extensive counseling done regarding ED precautions, I advise if she feels same or worse to go PHU to the hospital or call and ambulance Generalized bloating 12/01/2022 Epigastric pain 10/27/2022 Assessment & Plan (10/27/2022 11:40 AM EDT): I advise patient to avoid NSAIDs, spicy and acid food, I advise to eat at the same time every day, I advise to elevate the head of the bed and take medications as prescribe omeprazole now 40mg H pylori test will be repeated Essential hypertension 09/29/2022 Assessment & Plan (01/05/2025 3:26 PM EDT): I advised: - Aerobic exercise to reduce BP. Initial goal of 30 min walk 3-5x/week. Increase as tolerated. - low-sodium diet (goal: <2g/day) and heart healthy diet such as DASH to reduce BP and prevent ASCVD. - Home BP monitoring 1-2 x day with goal of <140/90. - Seek immediate medical attention for chest pain, palpitations, SOB, syncope, or sudden changes in mental status. - Do not change or discontinue current prescriptions without first consulting health care provider Assessment & Plan (10/05/2024 10:58 AM EDT): Advised patient low-sodium diet and to take her blood pressure medication every day without missing any dose, I instructed her to log her blood pressure and bring it for next appointment Assessment & Plan (10/01/2023 10:54 AM EDT): -Today BP is high I added hydrochlorothiazide 12.5mg, RTC for nurse visit in 2 weeks for BP check if its not at goal plan is to increase hydrochlorothiazide dose - Aerobic exercise to reduce BP. Initial goal of 30 min walk 3-5x/week. Increase as tolerated. - low-sodium diet (goal: <2g/day) and heart healthy diet such as DASH to reduce BP and prevent ASCVD. - Home BP monitoring 1-2 x day with goal of <140/90. - Seek immediate medical attention for chest pain, palpitations, SOB, syncope, or sudden changes in mental status. - Do not change or discontinue current prescriptions without first consulting health care provider Assessment & Plan (12/01/2022 12:04 PM EDT): Her blood pressure is now at goal patient most likely has white coat syndrome, continue with same interventions Assessment & Plan (10/27/2022 11:41 AM EDT): Patient reports her BP at home I always good Im suspecting white coat syndrome I will call her in 4 weeks with BP log Assessment & Plan (09/29/2022 9:53 AM EDT): Maintenance: BMP: ordered today Lipid Panel: ordered today ASCVD Risk: Calculate pending updated labs - Aerobic exercise to reduce BP. Initial goal of 30 min walk 3-5x/week. Increase as tolerated. - low-sodium diet (goal: <2g/day) and heart healthy diet such as DASH to reduce BP and prevent ASCVD. - Home BP monitoring 1-2 x day with goal of <140/90. - Seek immediate medical attention for chest pain, palpitations, SOB, syncope, or sudden changes in mental status. -I increase chlorthalidone form 25mg to 50mg - Do not change or discontinue current prescriptions without first consulting health care provider RTC 4 weeks in person H. pylori infection 09/29/2022 Vaginal itching 09/29/2022 Menopausal syndrome 06/07/2018 Type 2 diabetes mellitus wit h hyperglycemia, with long-term current use of insulin 02/14/2018 Assessment & Plan (01/05/2025 3:27 PM EDT): Diabetes is: not controlled - Lab Results Component Value Date HGBA1C 9.1 (A) 12/12/2024 HGBA1C 10.2 (A) 08/11/2024 HGBA1C 9.7 (A) 08/08/2024 - Lab Results Component Value Date MICROALBUR 7.0 10/12/2024 CREATININE 0.61 10/12/2024 Continue to follow-up with pharmacy [facility] - Diabetic eye exam: Up-to-date - Diabetic foot exam: Pending - Continue lifestyle modifications - Continue current medications - Follow up: 3 months Assessment & Plan (10/05/2024 10:59 AM EDT): Diabetes is: not controlled - Lab Results Component Value Date HGBA1C 10.2 (A) 08/11/2024 HGBA1C 9.7 (A) 08/08/2024 HGBA1C 9.1 (A) 05/02/2024 - Lab Results Component Value Date MICROALBUR <5.0 10/19/2023 CREATININE 0.74 04/27/2024 -Changes: Counseling about diabetic diet done today, will continue with same medications, she will have a follow-up appointment with pharmacy [facility] to check in her A1c and adjust medications accordingly - Diabetic eye exam: Patient reports she has upcoming appointment - Diabetic foot exam: Referral done today - Continue lifestyle modifications - Continue current medications - Follow up: 3 months Assessment & Plan (12/13/2023 10:02 AM EDT): Diabetes is: not controlled - Lab Results Component Value Date HGBA1C 8.5 (A) 10/01/2023 HGBA1C 14.1 (A) 07/08/2023 HGBA1C 14.3 (A) 10/27/2022 - Lab Results Component Value Date MICROALBUR <5.0 10/19/2023 CREATININE 0.90 10/19/2023 -Changes: I went up on her lantus to 18 U at bed time, I also went up on trulicity to 1.5mg weekly c/w rest of medications - Diabetic eye exam:up to date - Diabetic foot exam:up to date - Continue lifestyle modifications - Continue current medications - Follow up: 3 months Assessment & Plan (10/01/2023 11:02 AM EDT): Diabetes is: not controlled - Lab Results Component Value Date HGBA1C 8.5 (A) 10/01/2023 HGBA1C 14.1 (A) 07/08/2023 HGBA1C 14.3 (A) 10/27/2022 - Lab Results Component Value Date MICROALBUR 0.3 03/16/2022 CREATININE 0.78 09/21/2023 -Changes: continue following with our pharmacy chronic conditions program - Diabetic eye exam:up to date - Diabetic foot exam:referral done today - Continue lifestyle modifications - Continue current medications - Follow up: 3 months Assessment & Plan (07/08/2023 1:10 PM EST): Diabetes is: not controlled - Lab Results Component Value Date HGBA1C 14.1 (A) 07/08/2023 HGBA1C 14.3 (A) 10/27/2022 HGBA1C >14.0 (H) 09/29/2022 - Lab Results Component Value Date MICROALBUR 0.3 03/16/2022 CREATININE 0.58 09/29/2022 -Changes: I added today jardaince 10mg daily, I will prescribe for her continous glucose monitor - Diabetic eye exam: pending - Diabetic foot exam: pending - Continue lifestyle modifications - Continue current medications - Follow up: 3 months Assessment & Plan (12/01/2022 12:04 PM EDT): Her glucose levels improved a lot Continue with same interventions and medication regimen Assessment & Plan (10/27/2022 11:39 AM EDT): Today I increase her lantus to 16 U instead of bed time it will be in the morning (Patient reports glucose in AM is 76-110) Today I discontinue tradjenta and I put her on trulicity 0.75mg once a week Metformin increase to 1000mg BID C/w glipizide 20mg AM and 10mg PM and pioglitazoen 30mg daily continue with life style modifications RTC televisit 4 weeks wit log Assessment & Plan (09/29/2022 9:55 AM EDT): High glucose and A1c too high to be read - Lab Results Component Value Date HGBA1C 13.9 (H) 03/16/2022 HGBA1C 10.0 (H) 03/25/2021 - Lab Results Component Value Date MICROALBUR 0.3 03/16/2022 - - Diabetic eye exam: pending - Diabetic foot exam:pening - Continue lifestyle modifications - I increase actos to 30mg and I educated patient to take her glipizide as prescribed - RTC 4 weeks in person Hypertensive disorder 02/14/2018 H/O: hysterectomy 02/14/2018 Constipation 02/14/2018 Resolved Problems Problem Noted Date Diagnosed Date Resolved Date Mild intermittent asthma wit h acute exacerbation 07/08/2023 01/05/2025 Assessment & Plan (10/01/2023 10:49 AM EDT): Stable c/w albuterol PRN Assessment & Plan (07/08/2023 1:08 PM EST): Likely asthma triggered by URI Albuterol inhaler 2 puffs Q 4-6 hrs as needed Prednisone 40mg daily for 5 days Encounters Date Type Department Care Team Description 01/05/2025 11:15 AM EDT Office Visit [facility] [address] [place] [phone] Apple Rivera MD Type 2 diabetes mellitus with hyperglycemia, with long-term current use of insulin ([facility]); Essential hypertension; Primary osteoarthritis of left knee; Right hand pain; Mild intermittent asthma without complication; Encounter for screening mammogram for malignant neoplasm of breast 01/05/2025 Results Follow-Up [facility] [address] [place] [address] Apple Rivera MD XR Hand 3+ Views Right 01/05/2025 Travel 01/02/2025 Telephone [facility] [address] [place], [place] [phone] Apple Rivera MD Chart Prep 01/02/2025 Refill [facility] [address] [place], [place] [phone] Apple Rivera MD Mood disorder ([facility]) 12/26/2024 Orders Only [facility] [address] [place], [place] [phone] Apple Rivera MD 12/26/2024 Travel 12/17/2024 Refill [facility] [address] [place] [address] Apple Rivera MD Mild intermittent asthma with acute exacerbation 12/12/2024 Travel 12/08/2024 9:00 AM EDT Office Visit [facility] [address] [place] [address] Eber, Yudith, OD 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 ([facility]) (Primary Dx); Age-related nuclear cataract of both eyes; Dry eyes; Presbyopia 12/08/2024 Travel 11/29/2024 Orders Only [facility] [address] [place] [address] Apple Rivera MD Type 2 diabetes mellitus with hyperglycemia, with long-term current use of insulin ([facility]) (Primary Dx); Essential hypertension 11/29/2024 Telephone [facility] [address] [place] [address] Apple Rivera MD 10/24/2024 Telephone [facility] [address] [place] [address] Teresa Wolf, PharmD 10/23/2024 Travel from Last 3 Months Immunizations Immunization Administration Dates Next Due Hep B, adult 08/23/2024 HepB-CpG 01/21/2024,12/13/2023 Moderna Covid-19 Vaccine 12+ 06/18/2021,10/18/19 21,09/18/2020 Moderna Covid-19 Vaccine 6+ Bivalent 05/25/2022 Pfizer Covid-19 Vaccine 12+ 05/02/2024 Pneumococcal Conjugate PCV 20 10/01/2023 Tdap 08/23/2024 Zoster, Recombinant 04/04/2024,01/21/2024 Social History Tobacco Use Types Packs/Day Years Used Date Smoking Tobacco: Never Passive Smoke Exposure: Never Smokeless Tobacco: Never Tobacco Cessation:Counseling Given: Not Answered Alcohol Use Standard Drinks/Week Comments Never 0 (1 standard drink = 0.6 oz pur e alcohol) Depression Answer Date Recorded Patient Health Questionnaire-9 Score 0 01/05/2025 Patient Health Questionnaire-9 Score 0 01/05/2025 Last PHQ-9: Questionnaire Data Not on file 0 01/05/2025 Housing Stability Answer Date Recorded What is your housing situation today? I have kolby benitez 01/05/[address] you li ve. Do you have problems with any of the following? None of the above 01/05/2025 Food Insecurity Answer Date Recorded Within the past 12 months, y ou worried that your food would run out before you got money to buy more: Never True 01/05/2025 Within the past 12 months,th e food you bought just didn't last and you didn't have enough money to get more: Never True Transportation Answer Date Recorded In the past 12 months, has l ack of transportation kept you from medical appts, meetings, work or from getting things needed for daily living? No 01/05/2025 Utilities Answer Date Recorded In the past 12 months, has t he electric, gas, oil or water company threatened to shut off services in your home? No 01/05/2025 Depression Answer Date Recorded Patient Health Questionnaire-2 Score 0 01/05/2025 Internet Access Answer Date Recorded Internet Access Q1 No 01/05/2025 Internet Access Q2 I do not want or need it 12/16 Comments No Sex and Gender Information Value Date Recorded Sex Assigned at Female 03/16/2022 10:34 AM EDT Legal Sex Female 10:34 AM EDT Gender Identity Female 03/16/2022 10:34 AM EDT Sexual Orientation Choose not to disclose 2021 10:34 AM EDT Last Filed Vital Signs Vital Sign Reading Time Taken Comments Blood Pressure 140/82 01/05/2025 11:15 AM EDT Pulse 76 01/05/2025 11:15 AM EDT Temperature 36.1 C (97 F) 01/05/2025 11:15 AM EDT Respiratory Rate 16 01/05/2025 11:15 AM EDT Oxygen Saturation 98% 01/05/2025 11:15 AM EDT Inhaled Oxygen Concentration - - Weight 92.1 kg (203 lb) 01/05/2025 11:15 AM EDT Height 154.9 cm (5' 1 ) 01/05/2025 11:15 AM EDT Body Mass Index 38.36 01/05/2025 11:15 AM EDT Plan of Treatment Upcoming Encounters Date Type Department Care Team (Late st Contact Info) Description 01/22/2025 9:00 AM EDT Medication Management [facility] [address] [place] [address] Teresa Wolf, PharmD [address] [place] [address] 01/26/2025 8:00 AM EDT Office Visit [facility] [address] [place] [address] Eric, Geeta [address] [place] [address] 06/11/2025 10:00 AM EST Office Visit [facility] [address] [place] [address] Eber, Yudith, OD [address] [place] [address] Health Maintenance Due Date Last Done Comments CT Colonography 1966 FIT DNA/Cologuard 1966 FIT 1966 FOBT 1966 HIV Screening 1966 Sigmoidoscopy 1966 Diabetes: Foot Exam 1976 Alcohol/Substance Use Screening 1978 Hepatitis C Screening 1984 Colonoscopy 12/21/2023 12/20/2018 Colorectal Cancer Screening 12/21/2023 Dental Oral Exam 07/24/2024 01/24/2024, 10/31/2021 Mammogram 10/19/2024 10/20/2023, 05/19, 05/20/2020, Additional history exists Dental X-Ray: Full Mouth 11/01/2024 10/31/2021 Influenza Vaccine (#1) 2025 Dental X-Ray: Bitewings 01/24/2025 01/24/2024, 10/31 Dental Prophylaxis 01/26/2025 07/25/2024, 0 01/24/2024, 10/31/2021 Diabetes: Hemoglobin A1C 03/14/2025 025, 08/11/2024, 08/08/2024, Additional history exists Disability Screening 10/05/2025 10/05/2024 Diabetes: Urine Protein Screening 10/12/2025 10/12/2024, 10/19/2023, 09/29/2022, Additional history exists Eye Exam 12/08/2025 12/08/2024, 11/15, 12/08/2024, Additional history exists Lipid Panel 12/26/2025 12/26/2024, 09/15, 12/20/2023, Additional history exists Depression Screening 01/05/2026 01/05/2025, 01/06/20 SDOH Screening 01/05/2026 01/05/2025 Tobacco Screening 01/05/2026 01/05/2025 Cervical Cancer Screening 12/12/2028 HPV/Cotest 12/12/2028 12/13/2023 Pap Smear 12/12/2028 12/13/2023 DTaP/Tdap/Td Vaccines (2 - Td or Tdap) 08/23/2034 08/23/2024 RSV Patients and Patients Aged 60 years or older (1 - 1-dose 75+ series) 2041 Pneumococcal Vaccine: 50+ Years Completed 10/01/2023 Zoster Vaccines Completed 04/04/2024, 01/21/2024 COVID-19 Vaccine Completed 05/02/2024, 01/2023, 06/18/2021, Additional history exists Hepatitis B Vaccines Completed 08/23/2024, 01/21/2024, 12/13/2023 HIB Vaccines Aged Out No longer eligi [...] patient's age to complete this topic Meningococcal Vaccine Aged Out No tyree martin eligible based on patient's age to complete this topic RSV under 20 months Aged Out No longe r eligible based on patient's age to complete this topic Rotavirus Vaccines Aged Out No longer eligible based on patient's age to complete this topic Goals Goal Patient Goal Type Associated Problems Recent Progress Patient-Stated? Author Blood Pressure < 140/90 Blood Pressure 140/82(2024 11:15 AM EDT) No Teresa Ramirez PharmD Consistently take Medications as Prescribed General No Teresa Ramirez PharmD Hemoglobin A1c < 7 Result Component 9.1( 9:32 AM EDT) No Teresa Ramirez PharmD Procedures Procedure Name Priority Date/Time Associated Diagnosis Comments XR HAND 3+ VIEWS RIGHT Routine 01/05/2025 11:19 AM EDT Right hand pain POCT GLUCOSE Routine 01/05/2025 11:15 AM EDT Type 2 diabetes mellitus with hyperglycemia, with long-term current use of insulin ([facility]) LIPID PANEL, STANDARD Routine 12/26/2024 8:16 AM EDT US ABDOMEN COMPLETE Routine 12/13/2024 2 :26 PM EDT POCT GLYCATED HEMOGLOBIN, TOTAL Routine 12/12/2024 9:32 AM EDT Type 2 diabetes mellitus with hyperglycemia, with long-term current use of insulin ([facility]) OCT, RETINA - OU - BOTH EYES Routine 12/08/2024 9:00 AM EDT 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 ([facility]/HCC) ALBUMIN, RANDOM URINE W/CREATININE Routine 10/12/2024 8:15 AM EDT Type 2 diabetes mellitus with hyperglycemia, with long-term current use of insulin ([facility]) PROPHYLAXIS - ADULT Routine 07/25/2024 9 :00 AM EDT Dental calculus BITEWINGS - 4 RADIOGRAPHIC IMAGES Routine 01/24/2024 1:00 PM EDT Dental calculus Gingival bleeding Missing teeth, acquired Generalized gingival recession Extruded tooth PERIODIC ORAL EVALUATION - ESTABLISHED PATIENT Routine 01/24/2024 1:00 PM EDT Dental calculus Gingival bleeding Missing teeth, acquired Generalized gingival recession Extruded tooth Encounter for dental examination THINPREP IMAGING PAP AND HPV MRNA E6/E7 Routine 12/13/2023 12:00 AM EDT BI MAMMOGRAM SCREENING TOMOSYNTHESIS BILATERAL Routine 10/20/2023 2:55 PM EDT INTRAORAL - COMPLETE SERIES OF RADIOGRAPHIC IMAGES Routine 10/31/2021 12:00 AM EDT HM COLONOSCOPY Routine 12/20/2018 from Last 3 Months or Most Recently Relevant to Health Maintenance Results * XR Hand 3+ Views Right (01/05/2025 11:19 AM EDT) Anatomical Region Laterality Modality Upper Extremities, Hand Right Radiogra phic Imaging 01/05/2025 11:1 9 AM EDT Narrative 01/05/2025 12:21 [place] [address] XRay Report Signed Patient: Lety Melendez MR#: [id number] : 1965 Acct:[id number] Age/Sex: 59 / F ADM Date: 01/05/25 Loc: HO.HHCX Attending Dr: Apple Crowder MD Ordering Physician: Apple Rivera MD Date of Service: 01/05/25 Procedure(s): XR hand RT min 3V Accession Number(s): [id number] cc: Apple Rivera MD EXAMINATION: XR HAND, RIGHT CLINICAL INFORMATION: pain COMPARISON: September 28, 2018. TECHNIQUE: PA, lateral, and oblique views of the right hand. FINDINGS: Joint space narrowing involving the middle and distal interphalangeal joints of the digits. Less conspicuous soft tissue calcifications adjacent to the distal interphalangeal joint of the second digit and the proximal and distal interphalangeal joint of the fifth digit. Degenerative changes in the radiocarpal joint. No subcutaneous emphysema. No metallic or radiopaque foreign body. No acute fracture or dislocation. XR/XR hand RT min 3V IMPRESSION: Mild osteoarthritis/osteoarthrosis. Electronically signed by: Jn Hummel MD 01/05/2025 12:19 PM EDT RP Dictated By: Jn Hutchinson MD Signed By: <Electronically signed by Jn Mendez MD in OV> 01/05/25 1219 DD/ 1119 TD/TT: 01/05/25 1204 Crystal Syrup Maker: Procedure Note Donotuseinterpreter, Image - 01/05/[address] [address] XRay Report Signed Patient: Dinesh Melendez#: [id number] : 1965Acct:[id number] Age/Sex: 59 / FADM Date: 01/05/25 Loc: HO.HHCX Attending Dr: Apple Crowder MD Ordering Physician: Apple Rivera MD Date of Service: 01/05/25 Procedure(s): XR hand RT min 3V Accession Number(s): [id number] cc: Apple Rivera MD EXAMINATION: XR HAND, RIGHT CLINICAL INFORMATION: pain COMPARISON: September 28, 2018. TECHNIQUE: PA, lateral, and oblique views of the right hand. FINDINGS: Joint space narrowing involving the middle and distal interphalangeal joints of the digits. Less conspicuous soft tissue calcifications adjacent to the distal interphalangeal joint of the second digit and the proximal and distal interphalangeal joint of the fifth digit. Degenerative changes in the radiocarpal joint. No subcutaneous emphysema. No metallic or radiopaque foreign body. No acute fracture or dislocation. XR/XR hand RT min 3V IMPRESSION: Mild osteoarthritis/osteoarthrosis. Electronically signed by: Jn Hummel MD 01/05/2025 12:19 PM EDT RP Dictated By: Jn Hutchinson MD Signed By: <Electronically signed by Jn Mendez MDin OV> 01/05/25 1219 DD/ 1119 TD/TT: 01/05/25 1204 Crystal Syrup Maker: Apple Crowder MD IMG XR PROCEDURES Fin al Result * POCT Glucose (01/05/2025 11:15 AM EDT) Glucose Blood, POC 115 60 - 200 mg/dL Comment:random QC Media Lot # [id number] Lot# Expiration Date [id number] Blood Capillary blood specimen / Unknown 01/05/2025 11:15 AM EDT Apple Crowder MD POINT OF CARE TEST EN TER/EDIT ORDERABLES Final Result * (ABNORMAL) Lipid Panel, Standard (12/26/2024 8:16 AM EDT) Triglycerides 153(H) <150 mg/dL [facility] Comment:Desirable Triglyceri de: less than 150 mg/dLBorderline High Triglyceride 150-199 mg/dLHigh Triglyceride: 200-499 mg/dLVery High Triglyceride: greater than or equal to 5OO mg/dL Cholesterol 189 <200 mg/dL [facility] Comment:Desirable Cholestero l: less than 200 mg/dLBorderline High Cholesterol: 200-239 mg/dLHigh Cholesterol: greater than 239 mg/dL LDL Cholesterol Calculated 104(H) <100 mg/dL [facility] Comment:Desirable LDL: less than 100 mg/dLNear Optimal/Above Optimal LDL: 110- 129 mg/dLBorderline High LDL: 130-159 mg/dLHigh LDL: 160-189 mg/dLVery High LDL: greater than or equal to 190 mg/dL HDL Cholesterol 55 >40 mg/dL [facility] Comment:Desirable HDL: great er than 40 mg/dL Note: This HDL assay may give artificially low results in patients with liver disease. 12/26/2024 8:16 AM EDT 12/26/2024 11:18 AM EDT Apple Crowder MD LAB BLOOD ORDERABLES Final Result [facility] [address] [place] [phone] * US Abdomen Complete (12/13/2024 2:26 PM EDT) Anatomical Region Laterality Modality Abdomen Ultrasound 12/13/2024 2:26 PM EDT Narrative 12/13/2024 2:27 PM EDT [address] [address] Ultrasound Report Signed Patient: Lety Melendez MR#: [id number] : 1965 Acct:[id number] Age/Sex: 58 / F ADM Date: 12/13/24 Loc: HO.US Attending Dr: Susannah Dela Cruz CNP Ordering Physician: Susannah Dela Cruz CNP Date of Service: 12/13/24 Procedure(s): US abdomen complete Accession Number(s): [id number] cc: Apple Rivera MD; Susannah Dela Cruz CNP CLINICAL HISTORY: K21.9 - epigastric pain US abdomen complete Comparison: None provided Findings: The visualized pancreas is normal. The aorta and inferior vena cava are normal caliber. The liver is normal in size with increased echogenicity. There is no intrahepatic bile duct dilatation. The common duct is 4.0 mm in diameter. The gallbladder is normal. There is no sonographic Olivarez sign. The main portal vein is antegrade. The right kidney is 11 cm in length. There is fullness of the renal pelvis. The left kidney is 9.5 cm in length. The spleen is normal. No ascites. IMPRESSION: Hepatic steatosis. Pelviectasis of the right kidney. This document has been electronically signed by: Maren Hackett MD on 12/13/2024 14:26:00 Dictated By: Maren Hackett MD Signed By: <Electronically signed by Maren Hackett MD in OV> 12/13/24 1427 DD/ 142 TD/TT: 12/13/24 142 Crystal Syrup Maker: Procedure Note Donotuseinterpreter, Image - 12/13/[address] [address] Ultrasound Report Signed Patient: Dinesh Melendez#: [id number] : 1965Acct:[id number] Age/Sex: 58 / FADM Date: 12/13/24 Loc: HO.US Attending Dr: Susannah Dela Cruz CNP Ordering Physician: Susannah Dela Cruz CNP Date of Service: 12/13/24 Procedure(s): US abdomen complete Accession Number(s): [id number] cc: Apple Rivera MD; Susannah Dela Cruz CNP CLINICAL HISTORY: K21.9 - epigastric pain US abdomen complete Comparison: None provided Findings: The visualized pancreas is normal. The aorta and inferior vena cava are normal caliber. The liver is normal in size with increased echogenicity. There is no intrahepatic bile duct dilatation. The common duct is 4.0 mm in diameter. The gallbladder is normal. There is no sonographic Olivarez sign. The main portal vein is antegrade. The right kidney is 11 cm in length. There is fullness of the renalpelvis. The left kidney is 9.5 cm in length. The spleen is normal. No ascites. IMPRESSION: Hepatic steatosis. Pelviectasis of the right kidney. This document has been electronically signed by: Maren Hackett MD on 12/13/2024 14:26:00 Dictated By: Maren Hackett MD Signed By: <Electronically signed by Maren Hackett MD in OV> 12/13/24 1427 DD/ 1426 TD/TT: 12/13/24 142 Crystal Syrup Maker: [facility] External Provider IMG US PROCEDURES Final Result * (ABNORMAL) POCT A1C (12/12/2024 9:32 AM EDT) Hemoglobin A1C 9.1(A) 4.0 - 5.7 % QC Media Lot # [id number] Lot# Expiration Date Blood 12/12/2024 9:32 AM EDT Apple Crowder MD POINT OF CARE TEST EN TER/EDIT ORDERABLES Final Result * OCT, Retina - OU - Both Eyes (12/08/2024 9:00 AM EDT) Narrative Yudith Velázquez, OD - 12/22/2024 1:46 PM EDT Images from the original result were not included. OCT [facility] [employer] Optical Coherence Tomography Interpretation Report Measurements: OD OS Macula Thickness 223 microns 216 microns Test findings: OD: Normal foveal contour, No cystoid macular edema (CME), intraretinal exudate noted temporal to fovea, no retinal pigment epithelium (RPE) disruption, no subretinal fluid (SRF) OS: Normal foveal contour, Mild cystoid macular edema (CME) inferotemporal to fovea, scattered intraretinal exudates more concentrated temporally, no retinal pigment epithelium (RPE) disruption, no subretinal fluid (SRF) Impression and Plan: Moderate non-proliferative diabetic retinopathy (NPDR) in both eyes, Mild macular edema in the left eye that is not visually significant. Will monitor in 6 months. us Yudith Velázquez OD OPHTH TOMOGRAPHY Final Result * Albumin, Random Urine W/Creatinine (10/12/2024 8:15 AM EDT) Creatinine, Urine 156.35 mg/dL [facility] Microalbumin Urine 7.0 mg/L [facility] Microalbum Creatinine Ratio Ur 4.4 <30 ug/mg cr [facility] Comment:Albumin/Creatinine R atio Reference Ranges: Normal: < 30 ug/mg creatinine Microalbuminuria: 30 - 300 ug/mg creatinineClinical Albuminuria: > 300 ug/mg creatinine Urine (Urine, Random) 10/12/2024 8:15 AM EDT 10/12/2024 12:03 PM EDT us Apple Crowder MD LAB URINE ORDERABLES Final Result [facility] [address] [place] [phone] * ThinPrep Imaging Pap and HPV mRNA E6/E7 (12/13/2023 12:00 AM EDT) HPV nRNA E6/E7 Not Detected Not Detected [facility] Comment:Methodology: Transcr iption-Mediated AmplificationThis assay detects E6/E7 viral messenger RNA (mRNA) from 14high-risk HPV types (16,18,31,33,35,39,45,51,52,56,58,59,66,68).Cervical sources are required for HPV testing.If a vaginal source from a patient who has had atotal hysterectomy with removal of cervix wassubmitted, please contact the testing laboratoryfor alternative testing options.For additional information, please refer [email or web address]/RPV632b5(This link if provided for information/educational purposes only.)THIS TEST WAS PERFORMED AT:[employer] [address] [phone] LANCASTER MD SOURCE: SEE NOTE [facility] Comment:Cervix Report Status: [facility] Clinical Information: SEE NOTE [facility] Comment:57 Y/O F LMP: SEE NOTE [facility] Comment:NONE GIVEN Prev. PAP: SEE NOTE [facility] Comment:NONE GIVEN Prev. BX: SEE NOTE [facility] Comment:NONE GIVEN Statement Of Adequacy: SEE NOTE [facility] Comment:Satisfactory for kushal luation.Endocervical/transformation zone component absent. General Categorization: [facility] Interpretation/Result: SEE NOTE [facility] Comment:Cytology Results: Ne gative for intraepitheliallesion or malignancy. Cytology Comment SEE NOTE [facility] Comment:This Pap test has be en evaluated with computerassisted technology. Undergraduate Advisor: SEE NOTE [facility] Comment:RXB, CT(ASCP)CT scre ening location: [address] [address] Review Undergraduate Advisor: [facility] Pathologist [facility] PAP Infection SEE NOTE [facility] Comment:Shift in vaginal adrian ra suggestive of bacterialvaginosis. See Note SEE [facility] Comment:EXPLANATORY NOTE:The Pap is a screening test for cervical cancer. It isnot a diagnostic test and is subject to false negativeand false positive results. It is most reliable when asatisfactory sample, regularly obtained, is submittedwith relevant clinical findings and history, and whenthe Pap result is evaluated along with historic andcurrent clinical information. 12/13/2023 12/13/2023 Narrative [facility] - 12/16/2023 12:26 PM EDT SEE SCANNED RESULTS IN EMR57 Y/O FCERVIX us Apple Crowder MD LAB PATHOLOGY ORDERAB LES Final Result [facility] [address] [place] [address] [phone] * BI Mammogram Screening Tomosynthesis Bilateral (10/20/2023 2:55 PM EDT) Anatomical Region Laterality Modality Breast Bilateral Mammography 10/20/2023 2:55 PM EDT Narrative 11/16/2023 8:20 AM EDT [facility] [address] [place] [address] Mammography Report Signed Patient: Lety Melendez MR#: [id number] : 1965 Acct:[id number] Age/Sex: 57 / F ADM Date: 10/20/23 Loc: HO.MAMMO Attending Dr: Apple Crowder MD Ordering Physician: Apple Rivera MD Results: 2Benign Findings Date of Service: 10/20/23 Follow Up: 1 Year From [facility] Mammogram Procedure(s): MM tomosynthesis screening BI Accession Number(s): [id number] cc: Apple Rivera MD EXAMINATION: MM SCREENING DIGITAL BREAST TOMOSYNTHESIS, BILATERAL CLINICAL INFORMATION: Screening. Asymptomatic. COMPARISON: Mammography: This study is compared with prior exams dating back to 2019. TECHNIQUE: Digital breast tomosynthesis is performed in both the craniocaudal and mediolateral oblique views along with computer-aided detection (CAD). Synthesized 2D images are generated from the tomosynthesis. FINDINGS: The breasts are almost entirely fatty (ACR BI-RADS breast composition Category a). There are no significant masses, abnormal calcifications, or other abnormalities. There are unchanged, benign, scattered calcifications in the superior aspect of the right breast. MM/MM tomosynthesis screening BI IMPRESSION: No mammographic evidence of malignancy. ASSESSMENT: BI-RADS BI-RADS 2 - Benign Findings RECOMMENDATION: Routine annual mammography screening. 1 year F/U This examination should not preclude the clinical evaluation of a suspicious palpable abnormality. This patient's information was entered into a reminder system with a target due date for their next mammogram. Dictated By: Shannan Villa MD Signed By: <Electronically signed by Shannan Villa MD in OV> 11/16/23 0816 DD/ 1455 TD/TT: Crystal Syrup Maker: Procedure Note Donotuseinterpreter, Image - 11/16/2023 [facility] [address] [place] [address] Mammography Report Signed Patient: Dinesh Melendez#: [id number] : 1965Acct:[id number] Age/Sex: 57 / FADM Date: 10/20/23 Loc: HO.MAMMO Attending Dr: Apple Crowder MD Ordering Physician: Apple Rivera MDResults: 2Benign Findings Date of Service: 10/20/23Follow Up: 1 Year From Orig ina Mammogram Procedure(s): MM tomosynthesis screening BI Accession Number(s): [id number] cc: Apple Rivera MD EXAMINATION: MM SCREENING DIGITAL BREAST TOMOSYNTHESIS, BILATERAL CLINICAL INFORMATION: Screening. Asymptomatic. COMPARISON: Mammography: This study is compared with prior exams dating back to 2019. TECHNIQUE: Digital breast tomosynthesis is performed in both the craniocaudal and mediolateral oblique views along with computer-aided detection (CAD). Synthesized 2D images are generated from the tomosynthesis. FINDINGS: The breasts are almost entirely fatty (ACR BI-RADS breast composition Category a). There are no significant masses, abnormal calcifications, or other abnormalities. There are unchanged, benign, scattered calcifications in the superior aspect of the right breast. MM/MM tomosynthesis screening BI IMPRESSION: No mammographic evidence of malignancy. ASSESSMENT: BI-RADS BI-RADS 2 - Benign Findings RECOMMENDATION: Routine annual mammography screening. 1 year F/U This examination should not preclude the clinical evaluation of a suspicious palpable abnormality. This patient's information was entered into a reminder system with a target due date for their next mammogram. Dictated By: Shannan Villa MD Signed By: <Electronically signed by Shannan Villa MD in OV> 11/16/23 0816 DD/ 1455 TD/TT: Crystal Syrup Maker: us Apple Crowder MD IMG BI PROCEDURES Mark leonardo Result - Final * Hm Colonoscopy (12/20/2018) Historical Provider HEALTH MAINTENANCE Final Result from Last 3 Months or Most Recently Relevant to Health Maintenance Insurance [facility] AD[facility] Care Teams Bottle Tester Relationship Specialty Start Date End Date Apple Rivera MD [address] [place] [address] PCP - General Family Medicine 10/31/19 Teresa Wolf, MarkD [address] [place] [address] Pharmacist Internal Medicine 09/14/23 María Van Candle WrapperResource Recovery Specialist 05/19/23 David Mendez Candle WrapperResource Recovery Specialist 07/20/24
--- OUTSIDE RECORDS SUMMARY | 2025-01-16 06:58 | XMS_ITS | Encounter Summary ---
Author Organization [employer] Address [address] [facility] [address] [place] [address] Care Team Providers Care Distribution Specialist Name Role Phone Apple Rivera MD Primary Care Provide r Teresa Wolf PharmD Unavailable [phone] Encounter Details Date Type Department Care Team (Latest Contact Info) Description 06/02/2018 Abstract [facility] CONVERSIONS Dental, Provider, DDS Social [...] Description 01/22/2025 9:00 AM EDT Medication Management [facility] MEDICINE [address] [place] [address] Teresa Wolf, PharmD [address] [place] [address] 01/26/2025 8:00 AM EDT Office Visit [facility] ADULT DENTAL [address] [place] [address] Eric, Geeta [address] [place] [address] 06/11/2025 10:00 AM EST Office Visit [facility] OPTOMETRY [address] [place] [address] Yudith Velázquez, OD [address] [place], [place] [phone] documented as of this encounter Visit Diagnoses Not on filedocumented in this encounter Care Teams Distribution Specialist Relationship Specialty Start Date End Date Apple Rivera MD [address] [place] [address] PCP - General Family Medicine 10/31/19 Teresa Wolf, MarkD [address] [place], [place] [phone] Pharmacist Internal Medicine 09/14/23 María Van Medical Imaging SpecialistGang Knife Fish Chopper 05/19/23 David Mendez Medical Imaging SpecialistGang Knife Fish Chopper 07/20/24 documented as of this encounter
--- OUTSIDE RECORDS SUMMARY | 2025-01-16 06:58 | XMS_ITS | Clinical Summary ---
Author Organization [address] [place] [address] Address [address] [place] [address] Phone Care Team Providers Care Oyster Grower Name Role Phone Apple Rivera MD Primary Care Provide r Medications albuterol sulfate (ProAir RespiClick) 90 mcg/actuation [...] cream Apply topically to nail bed daily Active polycarbophil (FIBERCON) 625 mg tablet Take 1 tablet (625 mg total) by mouth 1 (one) time each day. Active Active Problems Problem Noted Date Diagnosed Date Bronchitis 2023 Constipation 2023 Epigastric pain 2023 Essential hypertension 2023 Generalized bloating 2023 H. pylori infection 2023 Menopausal syndrome 2023 Mild intermittent asthma with acute exacerbation 2023 Onychomycosis 2023 T2DM (type 2 diabetes mellitus) ([facility] V24, [facility] V28) 2023 Vaginal infection 2023 Encounters Date Type Department Care Team Description 01/10/2025 Telephone Gastroenterology [facility] [address] [phone] Giovanna Galaviz NP 12/05/2024 Telephone Gastroenterology [facility] [address] [facility] [address] [place] [address] Giovanna Galaviz NP from Last 3 Months Medical History Medical History Date Comments T2DM (type 2 diabetes [facility]) ([facility] V24, [facility] V28) DX:T2DM (type 2 diabetes krystyna litus) ([facility]) HTN (hypertension) DX:HTN (hyper tension) [...] Sign Reading Time Taken Comments Blood Pressure 138/74 01/09/2025 8:55 AM EDT Pulse 89 01/09/2025 8:55 AM EDT Temperature - - Respiratory Rate - - Oxygen Saturation 98% 01/09/2025 8:55 AM EDT Inhaled Oxygen Concentration - - Weight 90.3 kg (199 lb) 04/11/2024 10:42 AM EST Height 154.9 cm (5' 1 ) 12/30/2023 8:49 AM EDT Body Mass Index 37.6 12/30/2023 8:49 AM EDT Plan of Treatment Health Maintenance Due Date Last Done Comments Breast Cancer Screening 1965 Diabetes: Annual Foot Exam 1976 Diabetes: Annual Retina Eye Exam 1976 Cervical Cancer Screening: Pap Smear 12/25/1987 Colorectal Cancer Screening: Colonoscopy 01/10/2024 HIV Screening 01/10/2024 Hepatitis C Screening 01/10/2024 Social Influencers of Health Screening 01/10/2024 Diabetes: Annual Urine Albumin-Creatinine Ratio (uACR) 02/24/2024 Depression Screening 05/17/2024 Influenza Vaccine (#1) 2025 Diabetes: Blood Sugar Control Test (HGBA1C) 06/14/2025 12/12/2024, 01/21/2024 Diabetes: Annual GFR (Glomerular Filtration Rate) 10/12/2025 10/12/2024, 10/19/2023, 09/21/2023 Hypertension/CHF/CAD Annual BMP Blood Test 10/12/2025 10/12/2024, 10/19/2023, 09/21/2023 Cholesterol Screening (Lipid Panel) 12/26/2029 12/26/2024, 10/12/2024, 12/20/2023, Additional history exists DTaP,Tdap,and Td Vaccines (2 - Td or Tdap) 08/23/2034 08/23/2024 Pneumococcal Vaccine: 50+ Years Completed 10/01/2023 Zoster [...] topic Insurance MEDICAID - [place] Care Teams Oyster Grower Relationship Specialty Start Date End Date Apple Rivera MD [address] [place] [phone] PCP - General 10/06/23
== END 2025-01-16 06:56 | disposition home or self-care (01) ==
LOC: HO.XRAY 06:55
PROVIDERS: PCP Internal Medicine; Visit Provider Nurse Practitioner Family
DX: R13.10 Dysphagia, unspecified (principal); K21.9 Gastro-esophageal reflux disease without esophagitis
CPT/HCPCS: 74220

== ENCOUNTER → 2025-01-16 06:56 | Outpatient (BNV) | payer MEDICAID, SELFPAY | PROVIDERS: PCP Internal Medicine; Visit Provider Radiology Diagnostic Radiology | DX: R13.10 Dysphagia, unspecified (principal) | CPT/HCPCS: 74221 ==

== ENCOUNTER 2025-02-17 08:29 | Outpatient (REF) | payer MEDICAID, SELFPAY ==
--- OUTSIDE RECORDS SUMMARY | 2025-02-17 08:34 | XMS_ITS | Encounter Summary ---
Author Organization [employer] Address 75 [facility] 7t [place] [address] Care Team Providers Care Associate Professor Of Violin Name Role Phone Apple Rivera MD Primary Care Provide r Teresa Wolf PharmD Unavailable [phone] Reason for Visit * Reason Comments Med Refill Encounter Details Date Type Department Care Team ([facility] st Contact Info) Description 01/22/2024 Refill [facility] MEDICINE [address] [place], [place] [phone] Teresa Wolf, PharmD [address] [place] [address] Type 2 diabetes mellitus with hyperglycemia, with long-term current use of insulin ([facility]) Social History Tobacco [...] Care Team (Late st Contact Info) Description 02/21/2025 9:30 AM EDT Office Visit [facility] ADULT DENTAL [address] [place] [address] Ngoc Shelby DDS [address] [place] [address] 02/28/2025 9:30 AM EDT Medication Management [facility] MEDICINE [address] [place] [address] Teresa Wolf, PharmD [address] [place] [address] 04/09/2025 10:00 AM EST Office Visit [facility] MEDICINE [address] [place] [address] Apple Rivera MD [address] [place] [address] 06/11/2025 10:00 AM EST Office Visit [facility] OPTOMETRY [address] [place] [place] [address] Yudith Velázquez, OD 230 [place] [address] 07/31/2025 8:45 AM EDT Office Visit [facility] ADULT DENTAL [address] [place] [address] Geeta Reyes [address] [place] [address] documented as of this encounter Goals Goal Patient Goal Type Associated Problems Recent Progress Patient-Stated? Author Blood Pressure < 140/90 Blood Pressure 130/72(2024 9:39 AM EDT) No Teresa Ramirez PharmD Consistently take Medications as Prescribed General No Teresa Raimrez PharmD Hemoglobin A1c < 7 Result Component 9.1( 9:32 AM EDT) No Teresa Ramirez PharmD documented as of this encounter Visit Diagnoses Diagnosis Type 2 diabetes mellitus with hyperglycemia, with long-term current use of insulin (HCC) documented in this encounter Additional Health Concerns Assessment Noted Time PHQ-9 Depression Total Score: 0 12/13/19 24 9:31 AM EDT documented as of this encounter Care Teams Associate Professor Of Violin Relationship Specialty Start Date End Date Apple Rivera MD [address] [place] [address] PCP - General Family Medicine 10/31/19 Teresa Wolf PharmD [address] [place] [address] Pharmacist Internal Medicine 09/14/23 María Van Community AssistantCommonwealth Attorney 05/19/23 David Mendez Community AssistantCommonwealth Attorney 07/20/24 documented as of this encounter
--- OUTSIDE RECORDS SUMMARY | 2025-02-17 08:34 | XMS_ITS | Encounter Summary ---
Author Organization [employer] Address 75 [facility] 7t [place] [address] Care Team Providers Care Cake Wringer Name Role Phone Apple Rivera MD Primary Care Provide r Teresa Wolf PharmD Unavailable [phone] Reason for Visit * Reason Comments Med Refill Encounter Details Date Type Department Care Team ([facility] st Contact Info) Description 01/30/2025 Refill [facility] MEDICINE [address] [place], [place] [phone] Teresa Wolf, PharmD 230 [place] [address] Type 2 diabetes mellitus with hyperglycemia, with long-term current use of insulin ([facility]) Social History Tobacco Use Types Packs/Day [...] Description 02/21/2025 9:30 AM EDT Office Visit [facility] ADULT DENTAL [address] [place] [address] Ngoc Shelby DDS [address] [place] [address] 02/28/2025 9:30 AM EDT Medication Management [facility] MEDICINE [address] [place] [address] Teresa Wolf, PharmD [address] [place] [address] 04/09/2025 10:00 AM EST Office Visit [facility] MEDICINE [address] [place] [address] Apple Rivear MD [address] [place] [address] 06/11/2025 10:00 AM EST Office Visit [facility] OPTOMETRY [address] [place] [address] Yudith Velázquez, OD [address] [place] [address] 07/31/2025 8:45 AM EDT Office Visit [facility] ADULT DENTAL [address] [place] [address] Geeta Reyes [address] [place] [address] documented as of this encounter Goals Goal [...] Noted Time PHQ-9 Depression Total Score: 0 01/06/20 11:16 AM EDT documented as of this encounter Care Teams Cake Wringer Relationship Specialty Start Date End Date Apple Rivera MD [address] [place] [address] PCP - General Family Medicine 10/31/19 Teresa Wolf PharmD [address] [place] [address] Pharmacist Internal Medicine 09/14/23 María Van Security OfficerTank Car Mechanic 05/19/23 David Mendez Security OfficerTank Car Mechanic 07/20/24 documented as of this encounter
--- OUTSIDE RECORDS SUMMARY | 2025-02-17 08:34 | XMS_ITS | Clinical Summary ---
Author Organization [address] [place] [address] Address [address] [place] [address] Phone Care Team Providers Care Chief Vendor Quality Name Role Phone Apple Rivera MD Primary [...] Onychomycosis 2023 T2DM (type 2 diabetes mellitus) ([facility] V24, [facility] V28) 2023 Vaginal infection 2023 Encounters Date Type Department Care Team Description 01/10/2025 Telephone Gastroenterology [facility] [address] [address] Giovanna Galaviz NP 12/05/2024 Telephone Gastroenterology [facility] [address] 175 [facility] [address] [place] [address] Giovanna Galaviz NP from Last 3 Months Medical History Medical History Date Comments T2DM (type 2 diabetes [facility]) ([facility] V24, [facility] V28) DX:T2DM (type 2 diabetes krystyna litus) ([facility]) HTN (hypertension) DX:HTN (hyper tension) Onychomycosis DX:Onychomycosis [...] Care Team (Late st Contact Info) Description 03/02/2025 8:00 AM EDT Office Visit Orthopedic Surgery [facility] [place] 175 [facility] [address] [place] [address] Radha Bradshaw MD [address] [place] [phone] Health Maintenance Due Date Last Done Comments Breast Cancer Screening 1966 Colorectal Cancer Screening: Colonoscopy 1966 Diabetes: Annual Foot Exam 1976 Diabetes: Annual Retina Eye Exam 1976 Cervical Cancer Screening: Pap Smear 12/25/1987 HIV Screening 01/10/2024 Hepatitis C Screening 01/10/2024 [...] - Td or Tdap) 08/23/2034 08/23/2024 RSV Immunization Adult Patients (1 - 1-dose 75+ series) 2041 Pneumococcal [...] topic Insurance MEDICAID - [place] Care Teams Chief Vendor Quality Relationship Specialty Start Date End Date Apple Rivera MD [address] [place] [phone] PCP - General 10/06/23
--- OUTSIDE RECORDS SUMMARY | 2025-02-17 08:34 | XMS_ITS | Encounter Summary ---
Author Organization [employer] [facility] [employer] [facility] [employer] [employer] Address 75 [facility] 7t [place] [address] Care Team Providers Care Sports [employer] Membership Advisors Name Role Phone Apple Rivera MD Primary Care Provide r Teresa Wolf PharmD Unavailable [phone] Encounter Details Date Type Department Care Team (Latest Contact Info) Description 06/02/2018 Abstract [facility] CONVERSIONS Dental, Provider, DDS Social History [...] Encounters Date Type Department Care Team ( Contact Info) Description 02/21/2025 9:30 AM EDT Office Visit [facility] ADULT DENTAL [address] [place] [address] Ngoc Shelby, DDS 230 [place] [address] 02/28/2025 9:30 AM EDT Medication Management [facility] MEDICINE [address] [place] [address] Teresa Wolf, PharmD [address] [place] [address] 04/09/2025 10:00 AM EST Office Visit [facility] MEDICINE [address] [place] [address] Apple Rivera MD [address] [place] [address] 06/11/2025 10:00 AM EST Office Visit [facility] OPTOMETRY [address] [place] [address] Aidan Velázquezn, OD [address] [place] [address] 07/31/2025 8:45 AM EDT Office Visit [facility] ADULT DENTAL 230 [place] [address] Eric, Geeta 230 [place] [address] documented as of this encounter Visit Diagnoses Not on filedocumented in this encounter Care Teams Sports Health [employer] Membership Advisors Relationship Specialty Start Date End Date Apple Rivera MD [address] [place] [address] PCP - General Family Medicine 10/31/19 Teresa Wolf, MarkD [address] [place] [address] Pharmacist Internal Medicine 09/14/23 María Van Coding ManagerProduct Ambassador 05/19/23 David Mendez Coding ManagerProduct Ambassador 07/20/24 documented as of this encounter
--- OUTSIDE RECORDS SUMMARY | 2025-02-17 08:34 | XMS_ITS | Encounter Summary ---
Author Organization [employer] Address 75 [facility] 7t [place] [address] Care Team Providers Care Grounds Maintenance Supervisor Name Role Phone Apple Rivera MD Primary Care Provide r Teresa Wolf PharmD Unavailable [phone] Encounter Details Date Type Department Care Team (Late Contact Info) Description 01/27/2023 Orders Only [facility] MEDICINE [address] [place] [address] [phone] Provider, MD Sage Social History Tobacco Use [...] Department Care Team (Late Contact Info) Description 02/21/2025 9:30 AM EDT Office Visit [facility] ADULT DENTAL [address] [place] [address] Ngoc Shelby DDS [address] [place] [address] 02/28/2025 9:30 AM EDT Medication Management [facility] MEDICINE [address] [place] [address] Teresa Wolf, PharmD [address] [place] [address] 04/09/2025 10:00 AM EST Office Visit [facility] MEDICINE [address] [place] [address] Apple Rivera MD [address] [place] [address] 06/11/2025 10:00 AM EST Office Visit [facility] OPTOMETRY [address] [place] [address] EberAidann, OD [address] [place] [address] 07/31/2025 8:45 AM EDT Office Visit [facility] ADULT DENTAL [address] [place] [address] Eric, Geeta [address] [place] [address] documented as of this encounter Procedures Procedure [...] 10:39 AM EDT) Creatinine, Urine 24.51 mg/dL [facility] Microalbumin Urine <5.0 mg/L [facility] Microalbum Creatinine Ratio Ur TNP <30 ug/mg cr [facility] Comment:Unable to calculate albumin/creatinine ratio due to lowmicroalbumin or creatinine result. 10/19/2023 10:3 9 AM EDT 10/19/2023 12:06 PM EDT us Apple Crowder MD LAB URINE ORDERABLES Final Result [facility] [address] [place] [address] [phone] * (ABNORMAL) Basic Metabolic Panel (10/19/2023 10:39 AM EDT) Sodium 137 135 - 145 mmol/L [facility] Potassium 4.8 3.3 - 5.1 mmol/L [facility] Chloride 96 96 - 108 mmol/L [facility] Carbon Dioxide 26 22 - 29 mmol/L [facility] Anion Gap 20 12 - 20 [facility] Urea Nitrogen (BUN) 20(H) 9 - 16 mg/dL [facility] Creatinine, Serum 0.90 0.5 - 1.4 mg/dL [facility] Estimated Glomerular Filt Rate >60 [facility] Comment:NOTE: For -Am erican individuals, multiply the result by 1.210.Chronic Kidney Disease: Estimated GFR < 60 mL/min/1.13p2Gibevk Kidney Disease: Estimated GFR < 15 mL/min/1.73m2 Glucose 262(H) 60 - 115 mg/dL [facility] Calcium 10.2 8.4 - 10.2 mg/dL [facility] 10/19/2023 10:3 9 AM EDT 10/19/2023 11:48 AM EDT Apple Crowder MD LAB BLOOD ORDERABLES Final Result Performing Organization Address [facility] Co de Phone Number [facility] [address] [place] [phone] * (ABNORMAL) Vitamin D, 25-Hydroxy, Total, Immunoassay (10/01/2023 11:16 AM EDT) Vitamin D 25-OH Total 23.7(L) >30 ng/mL [facility] Comment:Health Based Referen ce Values*< 20 ng/mL Yifcmojic36-43 ng/mL Insufficient> 30 ng/mL Sufficient*Morteza WINSTON. N [...] 6 AM EDT 10/01/2023 1:09 PM EDT Apple Crowder MD LAB BLOOD ORDERABLES Final Result Performing Organization Address [facility] Co de Phone Number [facility] [address] [place] [phone] * Vitamin B12 (09/21/2023 8:20 AM EDT) Vitamin B12 293 200 - 900 pg/mL [facility] Comment:NORMAL 200-900 PG/ML INDETERMINATE 160-199 PG/ML DEFICIENT < 160 PG/ML 09/21/2023 8:20 AM EDT 09/21/2023 11:41 AM EDT Apple Crowder MD LAB BLOOD ORDERABLES Final Result Performing Organization Address [facility] Co de Phone Number [facility] [address] [place] [address] [phone] * (ABNORMAL) Lipid Panel, Standard (09/21/2023 8:20 AM EDT) Triglycerides 139 <150 mg/dL [facility] Comment:Desirable Triglyceri de: less than 150 mg/dLBorderline High Triglyceride 150-199 mg/dLHigh Triglyceride: 200-499 mg/dLVery High Triglyceride: greater than or equal to 5OO mg/dL Cholesterol 236(H) <200 mg/dL [facility] Comment:Desirable Cholestero l: less than 200 mg/dLBorderline High Cholesterol: 200-239 mg/dLHigh Cholesterol: greater than 239 mg/dL LDL Cholesterol Calculated 144(H) <100 mg/dL [facility] Comment:Desirable LDL: less than 100 mg/dLNear Optimal/Above Optimal LDL: 110- 129 mg/dLBorderline High LDL: 130-159 mg/dLHigh LDL: 160-189 mg/dLVery High LDL: greater than or equal to 190 mg/dL HDL Cholesterol 65 >40 mg/dL [facility] Comment:Desirable HDL: great er than 40 mg/dL Note: This HDL assay may give artificially low results in patients with liver disease. 09/21/2023 8:20 AM EDT 09/21/2023 11:41 AM EDT us Apple Crowder MD LAB BLOOD ORDERABLES Final Result Performing Organization Address [facility]/ZIP Co de Phone Number [facility] [address] [place] [phone] * (ABNORMAL) Basic Metabolic Panel (09/21/2023 8:20 AM EDT) Sodium 140 135 - 145 mmol/L [facility] Potassium 4.5 3.3 - 5.1 mmol/L [facility] Chloride 104 96 - 108 mmol/L [facility] Carbon Dioxide 24 22 - 29 mmol/L [facility] Anion Gap 17 12 - 20 [facility] Urea Nitrogen (BUN) 20(H) 9 - 16 mg/dL [facility] Creatinine, Serum 0.78 0.5 - 1.4 mg/dL [facility] Estimated Glomerular Filt Rate >60 [facility] Comment:NOTE: For -Am erican individuals, multiply the result by 1.210.Chronic Kidney Disease: Estimated GFR < 60 mL/min/1.61b5Kpiend Kidney Disease: Estimated GFR < 15 mL/min/1.73m2 Glucose 208(H) 60 - 115 mg/dL [facility] Calcium 9.9 8.4 - 10.2 mg/dL [facility] 09/21/2023 8:20 AM EDT 09/21/2023 11:41 AM EDT Apple Crowder MD LAB BLOOD ORDERABLES Final Result Performing Organization Address City/State/[facility] Co de Phone Number [facility] [address] [place] [phone] * Hepatic Function Panel (09/21/2023 8:20 AM EDT) Bilirubin, Total 0.5 0.0 - 1.0 mg/dL [facility] Bilirubin, Direct 0.2 0.0 - 0.5 mg/dL [facility] Aspartate Amino Transferase 15 5 - 31 U/L [facility] Alanine Aminotransferase 16 0 - 31 U/L [facility] Total Protein 7.6 6.5 - 8.0 g/dL [facility] Albumin Level 4.2 3.5 - 5.0 g/dL [facility] Alkaline Phosphatase 73 39 - 117 U/L [facility] 09/21/2023 8:20 AM EDT 09/21/2023 11:41 AM EDT Apple Crowder MD LAB BLOOD ORDERABLES Final Result [facility] [address] [place] [address] [phone] * Hm Colonoscopy (12/20/2018) us Historical Provider HEALTH MAINTENANCE Final Result documented in this encounter Visit Diagnoses Not on filedocumented in this encounter Additional Health Concerns Assessment Noted Time PHQ-9 Depression Total Score: 0 09/30/19 23 9:12 AM EDT documented as of this encounter Care Teams Grounds Maintenance Supervisor Relationship Specialty Start Date End Date Apple Rivera MD [address] [place] [address] PCP - General Family Medicine 10/31/19 Teresa Wolf, MarkD [address] [place] [address] Pharmacist Internal Medicine 09/14/23 María Van Fly WorkerHydroelectric Plant Electrical Engineer 05/19/23 David Mendez Fly WorkerHydroelectric Plant Electrical Engineer 07/20/24 documented as of this encounter
--- OUTSIDE RECORDS SUMMARY | 2025-02-17 08:34 | XMS_ITS | Encounter Summary ---
Author Organization [employer] Address 75 [facility] 7t [place] [address] Care Team Providers Care Radiology Physician Assistant Name Role Phone Apple Rivera MD Primary Care Provide r Teresa Wolf PharmD Unavailable [phone] Reason for Visit * Reason Comments Med Refill Encounter Details Date Type Department Care Team ([facility] st Contact Info) Description 07/17/2024 Refill [facility] MEDICINE [address] [place], [place] [phone] Teresa Wolf, PharmD 230 [place] [address] Type 2 diabetes mellitus with hyperglycemia, with long-term current use of insulin ([facility]) Social History Tobacco Use Types [...] Description 02/21/2025 9:30 AM EDT Office Visit [facility] ADULT DENTAL [address] [place] [address] Ngoc Shelby DDS [address] [place] [address] 02/28/2025 9:30 AM EDT Medication Management [facility] MEDICINE [address] [place] [address] Teresa Wolf, PharmD [address] [place] [address] 04/09/2025 10:00 AM EST Office Visit [facility] MEDICINE [address] [place] [address] Apple Rivera MD [address] [place] [address] 06/11/2025 10:00 AM EST Office Visit [facility] OPTOMETRY [address] [place] [address] Yudith Velázquez, OD [address] [place] [address] 07/31/2025 8:45 AM EDT Office Visit [facility] ADULT DENTAL [address] [place] [address] Geeta Reyes [address] [place] [address] documented as of this encounter Goals Goal [...] documented as of this encounter Care Teams Radiology Physician Assistant Relationship Specialty Start Date End Date Apple Rivera MD [address] [place] [address] PCP - General Family Medicine 10/31/19 Teresa Wolf PharmD [address] [place] [address] Pharmacist Internal Medicine 09/14/23 María Van Heel PackerCook Relief 05/19/23 David Mendez Heel PackerCook Relief 07/20/24 documented as of this encounter
--- OUTSIDE RECORDS SUMMARY | 2025-02-17 08:34 | XMS_ITS | Encounter Summary ---
Author Organization [employer] Address 75 [facility] 7t [place] [address] Care Team Providers Care Segment Assembler Name Role Phone Apple Rivera MD Primary Care Provide r Teresa Wolf PharmD Unavailable [phone] Reason for Visit * Reason Comments Med Refill Encounter Details Date Type Department Care Team ([facility] st Contact Info) Description 06/26/2024 Refill [facility] MEDICINE [address] [place], [place] [phone] Teresa Wolf, PharmD [address] [place] [address] Essential hypertension Social History Tobacco Use Types [...] Description 02/21/2025 9:30 AM EDT Office Visit [facility] ADULT DENTAL [address] [place] [address] Ngoc Shelby, DDS [address] [place] [address] 02/28/2025 9:30 AM EDT Medication Management [facility] MEDICINE [address] [place] [address] Teresa Wolf, PharmD [address] [place] [address] 04/09/2025 10:00 AM EST Office Visit [facility] MEDICINE [address] [place] [address] Apple Rivera MD [address] [place] [address] 06/11/2025 10:00 AM EST Office Visit [facility] OPTOMETRY [address] [place] [address] Yudith Velázquez, OD [address] [place] [address] 07/31/2025 8:45 AM EDT Office Visit [facility] ADULT DENTAL [address] [place] [address] Geeta Reyes [address] [place] [address] documented as of this encounter Goals Goal Patient Goal Type Associated Problems Recent Progress Patient-Stated? Author Blood Pressure < 140/90 Blood Pressure 130/72(2024 9:39 AM EDT) No Teresa Ramirez, PharmD Consistently take Medications as Prescribed General [...] documented as of this encounter Care Teams Segment Assembler Relationship Specialty Start Date End Date Apple Rivera MD [address] [place] [address] PCP - General Family Medicine 10/31/19 Teresa Wolf, PharmD [address] [place] [address] Pharmacist Internal Medicine 09/14/23 María Van Manager WirelessSenior Java Ui Developer 05/19/23 David Mendez Manager WirelessSenior Java Ui Developer 07/20/24 documented as of this encounter
--- OUTSIDE RECORDS SUMMARY | 2025-02-17 08:34 | XMS_ITS | Clinical Summary ---
Author Organization [employer] Address [address] [facility] [address] [place] [address] Care Team Providers Care Audio Visual Facilities Engineer Name Role Phone Apple Rivera MD Primary Care Provide r Teresa Wolf PharmD Unavailable [phone]- [phone] Allergies Active Allergy Reactions Criticality Noted Date Comments Mayur Inhibitors Cough 05/02/2024 Medications Continuous Blood Gluc Casting Operator (3X SystemsStyle Marquis 2 [place]) deviceIndicatio ns:Type 2 diabetes mellitus with hyperglycemia, with long-term current use of insulin ([facility]) Scan sensor every 8 hours 1 each 024 Active glucagon (Baqsimi) 3 MG/DOSE nasal powder Use if needed for low blood sugar emergencies by administering one full dose in one nostril as directed. If there is no response after 15 minutes, may administer a second dose as directed. 2 each 3 024 Active empagliflozin-m etFORMIN ER (Synjardy XR) 25-1000 MG 24 hr tabletIndicatio ns:Type 2 diabetes mellitus with hyperglycemia, with long-term current use of insulin ([facility]) TAKE 1 TABLET BY MOUTH EVERY MORNING 90 tablet 3 025 Active amLODIPine-olme sartan (Diamante) 10-20 MG tabletIndicatio ns:Essential hypertension Take 1 tablet by mouth Once per day. 90 tablet 3 025 Active glucose (Glutose) 40 % gel oral gelIndications: Type 2 diabetes mellitus with hyperglycemia, with long-term current use of insulin (HCC) Take 15 g by mouth if needed for low blood sugar. 45 g 11 025 Active Fiber-Lax 625 MG tabletIndicatio ns:Constipation , [...] with long-term current use of insulin (HCC) USE TO CHECK BLOOD SUGAR THREE TIMES DAILY 100 each Active Continuous Glucose Sensor (FreeStyle Marquis 2 Plus Sensor) miscIndications :Type 2 diabetes mellitus with hyperglycemia, with long-term current use of insulin (HCC) 1 each Use as directed. Test blood [...] tablet by mouth 2 times daily. Active pen needle 32G x 4 mm miscIndications :Type 2 diabetes mellitus with hyperglycemia, with long-term current use of insulin (HCC) USE WITH INSULIN ADMINISTRATION THREE TIMES DAILY 100 each 11 025 2025 Active citalopram (CeleXA) 20 MG tabletIndicatio ns:Mood disorder (CMS/HCC) TAKE 1 TABLET BY MOUTH EVERY MORNING 90 tablet 025 Active atorvastatin (Lipitor) 80 MG tabletIndicatio ns:Dyslipidemia Take 1 tablet (80 mg) by mouth at bedtime. 90 tablet 025 Active Tirzepatide (Mounjaro) 5 MG/0.5ML solution auto-injectorIn dications:Type 2 diabetes mellitus with hyperglycemia, with long-term current use of insulin ([facility]) Inject 5 mg under the skin every 7 (seven) days. 2 mL 1 025 Active insulin glargine (Lantus SoloStar) 100 UNIT/ML penIndications: Type 2 diabetes mellitus with hyperglycemia, with long-term current use of insulin ([facility]) INJECT 42 UNITS SUBCUTANEOUSLY ONCE DAILY 025 Active insulin lispro (HumaLOG KWIKPEN) 100 UNIT/ML injectionIndica tions:Type 2 diabetes mellitus with hyperglycemia, with long-term current use of insulin ([facility]) Inject subcutaneously twice daily 6 units before lunch and 6 units before dinner. Do not use if skipping meal. 025 Active atorvastatin (Lipitor) 40 MG tabletIndicatio ns:Type 2 diabetes mellitus with hyperglycemia, with long-term current use of insulin ([facility]) TAKE 1 TABLET BY MOUTH EVERY EVENING 90 tablet 3 024 2024 Discontinued(R eorder (will not trigger notification to Pharmacy)) insulin glargine (Lantus SoloStar) 100 UNIT/ML penIndications: Type 2 diabetes mellitus with hyperglycemia, with long-term current use of insulin ([facility]) INJECT 38 UNITS SUBCUTANEOUSLY ONCE DAILY 025 2024 Discontinued insulin lispro (HumaLOG KWIKPEN) 100 UNIT/ML injectionIndica tions:Type 2 diabetes mellitus with hyperglycemia, with long-term current use of insulin ([facility]) Inject subcutaneously twice daily 4 units before lunch and 6 units before dinner. Do not use if skipping meal. 025 2024 Discontinued Tirzepatide (Mounjaro) 2.5 MG/0.5ML solution auto-injectorIn dications:Type 2 diabetes mellitus with hyperglycemia, with long-term current use of insulin (HCC) Inject 2.5 mg under the skin every 7 (seven) days. 2 mL 3 025 2024 Discontinued(D ose adjustment) Active Problems Problem Noted Date Diagnosed Date Abfraction 01/26/2025 Periodontal disease 01/26/2025 Right hand pain 01/05/2025 Assessment & Plan [...] Encounters Date Type Department Care Team Description 01/30/2025 Travel 01/30/2025 Refill [facility] [address] [place] [address] Teresa Wolf, Mario Type 2 diabetes mellitus with hyperglycemia, with long-term current use of insulin ([facility]) 01/26/2025 8:00 AM EDT Office Visit [facility] [address] [place] [address] Geeta Reyes Gingival bleeding (Primary Dx); Missing teeth, acquired; Dental calculus; Generalized gingival recession; Abfraction; Periodontal disease 01/26/2025 Outside Procedure [facility] [address] [place] [address] Eber, Yudith, OD Presbyopia (Primary Dx) 01/22/2025 Telephone [facility] [address] [place], [place] [phone] Apple Rivera MD NOV RECALL 01/05/2025 11:15 AM EDT Office Visit [facility] [address] [place] [address] Apple Rivera MD Type 2 diabetes mellitus with hyperglycemia, with long-term current use of insulin ([facility]); Essential hypertension; Primary osteoarthritis of left knee; Right hand pain; Mild intermittent asthma without complication; Encounter for screening mammogram for malignant neoplasm of breast 01/05/2025 9:15 AM EDT Office Visit [facility] [address] [place] [address] Aidan Velázquezn, OD Hyperopia of both eyes (Primary Dx) 01/05/2025 Results Follow-Up [facility] [address] [place] [address] Apple Rivera MD XR Hand 3+ Views Right 01/05/2025 Travel 01/02/2025 Telephone [facility] [address] [place] [address] Apple Rivera MD Chart Prep 01/02/2025 Refill [facility] [address] [place] [address] Apple Rivera MD Mood disorder ([facility]/HCC) 12/26/2024 Orders Only [facility] [address] [place] [address] Apple Rivera MD 12/26/2024 Travel 12/17/2024 Refill [facility] [address] [place] [address] Apple Rivera MD Mild intermittent asthma with acute exacerbation 12/12/2024 Travel 12/08/2024 9:00 AM EDT Office Visit [facility] [address] [place] [address] Aidan Velázquezn, OD 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 ([facility]) (Primary Dx); Age-related nuclear cataract of both eyes; Dry eyes; Presbyopia 12/08/2024 Travel 11/29/2024 Orders Only [facility] [address] [place] [address] Apple Rievra MD Type 2 diabetes mellitus with hyperglycemia, with long-term current use of insulin ([facility]) (Primary Dx); Essential hypertension 11/29/2024 Telephone [facility] [address] [place] [address] Apple Rivera MD from Last 3 Months Immunizations Immunization Administration [...] Sign Reading Time Taken Comments Blood Pressure 130/72 01/30/2025 9:39 AM EDT Pulse 84 01/30/2025 9:35 AM EDT Temperature 36.1 C (97 F) [...] Description 02/21/2025 9:30 AM EDT Office Visit [facility] [address] [place] [address] Ngoc Shelby, DDS [address] [place] [address] 02/28/2025 9:30 AM EDT Medication Management [facility] [address] [place] [address] Teresa Wolf, PharmD [address] [place] [address] 04/09/2025 10:00 AM EST Office Visit [facility] [address] [place] [address] Apple Rivera MD [address] [place] [address] 06/11/2025 10:00 AM EST Office Visit [facility] [address] [place] [address] Yudith Velázquez, OD [address] [place] [address] 07/31/2025 8:45 AM EDT Office Visit [facility] [address] [place] [address] Jerry Reyesaris [address] [place] [address] Health Maintenance Due Date Last Done Comments CT Colonography 1966 FIT DNA/Cologuard 1966 FIT 1966 FOBT 1966 HIV Screening 1966 Sigmoidoscopy 1966 Diabetes: Foot Exam 1976 Alcohol/Substance Use Screening 1978 Hepatitis C Screening 1984 Colonoscopy 12/21/2023 12/20/2018 Colorectal Cancer Screening 12/21/2023 Mammogram 10/19/2024 10/20/2023, 05/19, 05/20/2020, Additional history exists Dental X-Ray: Full Mouth 11/01/2024 10/31/2021 Influenza Vaccine (#1) 2025 Dental X-Ray: Bitewings 01/24/2025 01/24/2024, 10/31 Diabetes: Hemoglobin A1C 03/14/2025 025, 08/11/2024, 08/08/2024, Additional history exists Dental Oral Exam 07/27/2025 01/26/2025, 01/2024, 10/31/2021 Dental Prophylaxis 07/27/2025 01/26/2025, 0 07/25/2024, 01/24/2024, Additional history exists Disability Screening 10/05/2025 10/05/2024 Diabetes: Urine Protein Screening 10/12/2025 10/12/2024, 10/19/2023, 09/29/2022, Additional history exists Eye Exam 12/08/2025 12/08/2024, 11/15, 12/08/2024, Additional history exists Lipid Panel 12/26/2025 12/26/2024, 09/15, 12/20/2023, Additional history exists Depression Screening 01/05/2026 01/05/2025, 01/06/20 25 SDOH Screening 01/05/2026 01/05/2025 Tobacco Screening 01/26/2026 01/26/2025 Cervical Cancer Screening 12/12/2028 HPV/Cotest 12/12/2028 12/13/2023 [...] Medications as Prescribed General No Teresa Ramirez PharmTimo Hemoglobin A1c < 7 Result Component 9.1( 9:32 AM EDT) No Teresa Ramirez PharmD Procedures Procedure Name Priority Date/Time Associated Diagnosis Comments PERIODIC ORAL EVALUATION - ESTABLISHED PATIENT Routine 01/26/2025 8:00 AM EDT INTRAORAL - PERIAPICAL EACH ADDITIONAL RADIOGRAPHIC IMAGE Routine 01/26/2025 8:00 AM EDT Gingival bleeding Missing teeth, acquired Dental calculus Generalized gingival recession INTRAORAL - PERIAPICAL EACH ADDITIONAL RADIOGRAPHIC IMAGE Routine 01/26/2025 8:00 AM EDT Gingival bleeding Missing teeth, acquired Dental calculus Generalized gingival recession INTRAORAL - PERIAPICAL EACH ADDITIONAL RADIOGRAPHIC IMAGE Routine 01/26/2025 8:00 AM EDT Gingival bleeding Missing teeth, acquired Dental calculus Generalized gingival recession INTRAORAL - PERIAPICAL EACH ADDITIONAL RADIOGRAPHIC IMAGE Routine 01/26/2025 8:00 AM EDT Gingival bleeding Missing teeth, acquired Dental calculus Generalized gingival recession ORAL HYGIENE INSTRUCTIONS Routine 01/26/2025 8:00 AM EDT Gingival bleeding Missing teeth, acquired Dental calculus Generalized gingival recession CASE PRESENTATION, DETAILED AND EXTENSIVE TREATMENT PLANNING Routine 01/26/2025 8:00 AM EDT Gingival bleeding Missing teeth, acquired Dental calculus Generalized gingival recession PROPHYLAXIS - ADULT Routine 01/26/2025 8 :00 AM EDT Gingival bleeding Missing teeth, acquired Dental calculus Generalized gingival recession INTRAORAL - PERIAPICAL EACH ADDITIONAL RADIOGRAPHIC IMAGE Routine 01/26/2025 8:00 AM EDT Gingival bleeding Missing teeth, acquired Dental calculus Generalized gingival recession INTRAORAL - PERIAPICAL FIRST RADIOGRAPHIC IMAGE Routine 01/26/2025 8:00 AM EDT Gingival bleeding Missing teeth, acquired Dental calculus Generalized gingival recession FL ESOPHAGUS BARIUM SWALLOW Routine 01/16/2025 7:25 AM EDT XR HAND 3+ VIEWS RIGHT Routine 01/05/2025 11:19 AM EDT Right hand pain POCT GLUCOSE Routine 01/05/2025 11:15 AM EDT Type 2 diabetes mellitus with hyperglycemia, with long-term current use of insulin ([facility]) LIPID PANEL, STANDARD Routine 12/26/2024 8:16 AM EDT US ABDOMEN COMPLETE Routine 12/13/2024 2 :26 PM EDT POCT GLYCATED HEMOGLOBIN, TOTAL Routine 12/12/2024 9:32 AM EDT Type 2 diabetes mellitus with hyperglycemia, with long-term current use of insulin (CMS/HCC) OCT, RETINA - OU - BOTH EYES Routine 12/08/2024 9:00 AM EDT 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 ([facility]) ALBUMIN, RANDOM URINE W/CREATININE Routine 10/12/2024 8:15 AM EDT Type 2 diabetes mellitus with hyperglycemia, with long-term current use of insulin ([facility]) BITEWINGS - 4 RADIOGRAPHIC IMAGES Routine 01/24/2024 1:00 PM EDT Dental calculus Gingival bleeding Missing teeth, acquired Generalized gingival recession Extruded tooth THINPREP IMAGING PAP AND HPV MRNA E6/E7 Routine 12/13/2023 12:00 AM EDT BI MAMMOGRAM SCREENING TOMOSYNTHESIS BILATERAL Routine 10/20/2023 2:55 PM EDT INTRAORAL - COMPLETE SERIES OF RADIOGRAPHIC IMAGES Routine 10/31/2021 12:00 AM EDT HM COLONOSCOPY Routine 12/20/2018 from Last 3 Months or Most Recently Relevant to Health Maintenance Results * FL Esophagus Barium Swallow (01/16/2025 7:25 AM EDT) Anatomical Region Laterality Modality Head, Neck Radiographic Glo ging 01/16/2025 7:25 AM EDT Narrative 01/16/2025 11:24 AM EDT [place] [address] Fluoroscopy Report Signed Patient: Lety Melendez MR#: [id number] : 1965 Acct:[id number] Age/Sex: 59 / F ADM Date: 01/16/25 Loc: RYLEE Attending Dr: Susannah Dela Cruz CNP Ordering Physician: Susannah Dela Cruz CNP Date of Service: 01/16/25 Procedure(s): FL barium swallow Accession Number(s): [id number] cc: Apple Rivera MD; Susannah Dela Cruz CNP Reason for Exam: R13.10 - Dysphagia, unspecified EXAMINATION: XR BARIUM SWALLOW CLINICAL INFORMATION: Dysphagia. COMPARISON: None available. TECHNIQUE: Routine upright barium swallow was performed with thick barium and barium coated cracker. Thin barium was administered in prone lying position. FINDINGS: Following oral administration of thick barium there is normal propagation bolus of oral contrast from the oral cavity through the pharynx, esophagus into stomach without any evidence of obstruction, narrowing or stricture. No extrinsic compression. On oral administration of barium coated saltine crackers is normal oral mastication and propagation of solid food from the oral cavity, pharynx and esophagus. Thin barium was administered to propagate bolus from the mid esophagus into the stomach. The gastroesophageal junction is widely patent. On placing patient prone lying and oral administration of thin barium there is good distention of entire esophagus without intraluminal filling defect or narrowing. No extrinsic compression seen. There is no laryngeal penetration, aspiration or retention of barium in the valleculae or piriform sinuses FLUOROSCOPY TIME: 2 minutes and 6 seconds DOSE AREA PRODUCT: 1547 uGy-m2 (microgray-meter squared) FL/FL barium swallow IMPRESSION: Normal barium swallow. Electronically signed by: Franck Capone MD 01/16/2025 11:22 AM EDT RP Dictated By: Franck Capone MD Signed By: <Electronically signed by Franck Capone MD in OV> 01/16/25 1122 DD/ 0725 TD/TT: 01/16/25 0801 Side Laster Tack: [facility] Procedure Note Donotuseinterpreter, Image - 01/16/2025 [place] [address] Fluoroscopy Report Signed Patient: Dinesh Melendez#: [id number] : 1965Acct:[id number] Age/Sex: 59 / FADM Date: 01/16/25 Loc: RYLEE Attending Dr: Susannah Dela Cruz CNP Ordering Physician: Susannah Dela Cruz CNP Date of Service: 01/16/25 Procedure(s): FL barium swallow Accession Number(s): [id number] cc: Apple Rivera MD; Susannah Dela Cruz CNP Reason for Exam: R13.10 - Dysphagia, unspecified EXAMINATION: XR BARIUM SWALLOW CLINICAL INFORMATION: Dysphagia. COMPARISON: None available. TECHNIQUE: Routine upright barium swallow was performed with thick barium and barium coated cracker. Thin barium was administered in prone lying position. FINDINGS: Following oral administration of thick barium there is normal propagation bolus of oral contrast from the oral cavity through the pharynx, esophagus into stomach without any evidence of obstruction, narrowing or stricture. No extrinsic compression. On oral administration of barium coated saltine crackers is normal oral mastication and propagation of solid food from the oral cavity, pharynx and esophagus. Thin barium was administered to propagate bolus from the mid esophagus into the stomach. The gastroesophageal junction is widely patent. On placing patient prone lying and oral administration of thin barium there is good distention of entire esophagus without intraluminal filling defect or narrowing. No extrinsic compression seen. There is no laryngeal penetration, aspiration or retention of barium in the valleculae or piriform sinuses FLUOROSCOPY TIME: 2 minutes and 6 seconds DOSE AREA PRODUCT: 1547 uGy-m2 (microgray-meter squared) FL/FL barium swallow IMPRESSION: Normal barium swallow. Electronically signed by: Franck Capone MD 01/16/2025 11:22 AM EDT Dictated By: Franck Capone MD Signed By: <Electronically signed by Franck Capone MD in OV> 01/16/25 1122 DD/ 0725 TD/TT: 01/16/25 0801 Side Laster Tack: [facility] External Provider IMG FLU OROSCOPY PROCEDURES Final Result * XR Hand 3+ Views Right (01/05/2025 11:19 AM EDT) Anatomical Region Laterality Modality Upper Extremities, Hand Right Radiogra phic Imaging 01/05/2025 11:1 9 AM EDT Narrative 01/05/2025 12:21 PM EDT [address] [address] XRay Report Signed Patient: Lety Melendez MR#: [id number] : 1965 Acct:[id number] Age/Sex: 59 / F ADM Date: 01/05/25 Loc: HO.CX Attending Dr: Apple Crowder MD Ordering Physician: Apple Rivera MD Date of Service: 01/05/25 Procedure(s): XR hand RT min 3V Accession Number(s): [id number] cc: Apple Rivera MD EXAMINATION: XR HAND, [...] Jn Hummel MD 01/05/2025 12:19 PM EDT Dictated By: Jn Hutchinson MD Signed By: <Electronically signed by Jn Mendez MD in OV> 01/05/25 1219 DD/ 1119 TD/TT: 01/05/25 1204 Side Laster Tack: Procedure Note Donotuseinterpreter, Image - 01/05/2025 [place] [address] XRay Report Signed Patient: Dinesh Melendez#: [id number] : 1965Acct:[id number] Age/Sex: 59 / FADM Date: 01/05/25 Loc: HO.CX Attending Dr: Apple Crowder MD Ordering Physician: Apple Rivera MD Date of Service: 01/05/25 Procedure(s): XR hand RT min 3V Accession Number(s): [id number] cc: Apple Rivera MD EXAMINATION: XR HAND, [...] 01/05/25 1219 DD/ 1119 TD/TT: 01/05/25 1204 Side Laster Tack: Apple Crowder MD IMG XR PROCEDURES Fin al Result * POCT Glucose (01/05/2025 11:15 AM EDT) Glucose Blood, POC 115 60 - 200 mg/dL Comment:random QC Media Lot # [id number] Lot# Expiration Date [id number] Blood Capillary blood specimen / Unknown 01/05/2025 11:15 AM EDT Apple Crowder MD POINT OF CARE TEST EN TER/EDIT ORDERABLES Final Result * (ABNORMAL) Lipid Panel, Standard (12/26/2024 8:16 AM EDT) Triglycerides 153(H) <150 mg/dL [facility] Comment:Desirable Triglyceri de: less than 150 mg/dLBorderline High Triglyceride 150-199 mg/dLHigh Triglyceride: 200-499 mg/dLVery High Triglyceride: greater than or equal to 5OO mg/dL Cholesterol 189 <200 mg/dL [facility] Comment:Desirable Cholestero l: less than 200 mg/dLBorderline High Cholesterol: 200-239 mg/dLHigh Cholesterol: greater than 239 mg/dL LDL Cholesterol Calculated 104(H) <100 mg/dL [facility] Comment:Desirable LDL: less than 100 mg/dLNear Optimal/Above Optimal LDL: 110- 129 mg/dLBorderline High LDL: 130-159 mg/dLHigh LDL: 160-189 mg/dLVery High LDL: greater than or equal to 190 mg/dL HDL Cholesterol 55 >40 mg/dL [facility] Comment:Desirable HDL: great er than 40 mg/dL Note: This HDL assay may give artificially low results in patients with liver disease. 12/26/2024 8:16 AM EDT 12/26/2024 11:18 AM EDT us Apple Crowder MD LAB BLOOD ORDERABLES Final Result Performing Organization Address City/State/[facility] Co de Phone Number [facility] [address] [place] [phone] * US Abdomen Complete (12/13/2024 2:26 PM EDT) Anatomical Region Laterality Modality Abdomen Ultrasound 12/13/2024 2:26 PM EDT Narrative 12/13/2024 2:27 PM EDT [place] [address] Ultrasound Report Signed Patient: Lety Melendez MR#: [id number] : 1965 Acct:[id number] Age/Sex: 58 / F ADM Date: 12/13/24 Loc: HO.US Attending Dr: Susannah Dela Cruz CNP Ordering Physician: Susannah Dela Cruz CNP Date of Service: 12/13/24 Procedure(s): US abdomen complete Accession Number(s): [id number] cc: Apple Rivera MD; Susannah Dela Cruz [...] 12/13/24 1427 DD/ 142 TD/TT: 12/13/24 142 Side Laster Tack: Procedure Note Donotuseinterpreter, Image - 12/13/2024 [place] [address] Ultrasound Report Signed Patient: Dinesh Melendez#: [id number] : 1965Acct:[id number] Age/Sex: 58 / FADM Date: 12/13/24 Loc: HO.US Attending Dr: Susannah Dela Cruz CNP Ordering Physician: Susannah Dela Cruz CNP Date of Service: 12/13/24 Procedure(s): US abdomen complete Accession Number(s): [id number] cc: Apple Rivera MD; Susannah Dela Cruz [...] Hackett MD in OV> 12/13/24 1427 DD/ 25 TD/TT: 12/13/241425 Side Laster Tack: [facility] External Provider IMG US PROCEDURES Final Result * (ABNORMAL) POCT A1C (12/12/2024 9:32 AM EDT) Hemoglobin A1C 9.1(A) 4.0 - 5.7 % QC Media Lot # [id number] Lot# Expiration Date 529 Blood 12/12/2024 9:32 AM EDT Apple Crowder [...] visually significant. Will monitor in 6 months. Yudith Velázquez OD OPHTH TOMOGRAPHY Final Result * Albumin, Random Urine W/Creatinine (10/12/2024 8:15 AM EDT) Creatinine, Urine 156.35 mg/dL [facility] Microalbumin Urine 7.0 mg/L [facility] Microalbum Creatinine Ratio Ur 4.4 <30 ug/mg cr [facility] Comment:Albumin/Creatinine R atio Reference Ranges: Normal: < 30 ug/mg creatinine Microalbuminuria: 30 - 300 ug/mg creatinineClinical Albuminuria: > 300 ug/mg creatinine Urine (Urine, Random) 10/12/2024 8:15 AM EDT 10/12/2024 12:03 PM EDT Apple Crowder MD LAB URINE ORDERABLES Final Result [facility] [address] [place] [address] [phone] * ThinPrep Imaging Pap and HPV mRNA E6/E7 (12/13/2023 12:00 AM EDT) HPV nRNA E6/E7 Not Detected Not Detected [facility] Comment:Methodology: Transcr iption-Mediated AmplificationThis assay detects E6/E7 viral messenger RNA (mRNA) from 14high-risk HPV types (16,18,31,33,35,39,45,51,52,56,58,59,66,68).Cervical sources are required for HPV testing.If a vaginal source from a patient who has had atotal hysterectomy with removal of cervix wassubmitted, please contact the testing laboratoryfor alternative testing options.For additional information, please refer [email or web address](This link if provided for information/educational purposes only.)THIS TEST WAS PERFORMED AT:[facility] [place] [phone] LANCASTER MD SOURCE: SEE NOTE [facility] Comment:Cervix Report Status: TNP [facility] Clinical Information: SEE NOTE [facility] Comment:57 Y/O F LMP: SEE NOTE [facility] Comment:NONE GIVEN Prev. PAP: SEE NOTE [facility] Comment:NONE GIVEN Prev. BX: SEE NOTE [facility] Comment:NONE GIVEN Statement Of Adequacy: SEE NOTE [facility] Comment:Satisfactory for kushal luation.Endocervical/transformation zone component absent. General Categorization: [facility] Interpretation/Result: SEE NOTE [facility] Comment:Cytology Results: Ne gative for intraepitheliallesion or malignancy. Cytology Comment SEE NOTE [facility] Comment:This Pap test has be en evaluated with computerassisted technology. Propulsion Systems Engineer: SEE NOTE [facility] Comment:RXB, CT(ASCP)CT scre ening location: [place] [address] Review Propulsion Systems Engineer: [facility] Pathologist [facility] PAP Infection SEE NOTE [facility] Comment:Shift in vaginal adrian ra suggestive of bacterialvaginosis. See Note SEE NOTE [facility] Comment:EXPLANATORY NOTE:The Pap is a screening test for cervical cancer. It isnot a diagnostic test and is subject to false negativeand false positive results. It is most reliable when asatisfactory sample, regularly obtained, is submittedwith relevant clinical findings and history, and whenthe Pap result is evaluated along with historic andcurrent clinical information. 12/13/2023 12/13/2023 Narrative [facility] - 12/16/2023 12:26 PM EDT SEE SCANNED RESULTS IN EMR56 Y/O FCERVIX us Apple Crowder MD LAB PATHOLOGY ORDERAB LES Final Result [facility] [address] [place] [address] [phone] * BI Mammogram Screening Tomosynthesis Bilateral (10/20/2023 2:55 PM EDT) Anatomical Region Laterality Modality Breast Bilateral Mammography 10/20/2023 2:55 PM EDT Narrative 11/16/2023 8:20 AM EDT [facility] [address] [place] [address] Mammography Report Signed Patient: Lety Melendez MR#: [id number] : 1965 Acct:[id number] Age/Sex: 57 / F ADM Date: 10/20/23 Loc: [facility] Attending Dr: Apple Crowder MD Ordering Physician: Apple Rivera MD Results: 2Benign Findings Date of Service: 10/20/23 Follow Up: 1 Year From Orig ina Mammogram Procedure(s): MM tomosynthesis screening BI Accession Number(s): [id number] cc: Apple Rivera MD EXAMINATION: MM SCREENING [...] in OV> 11/16/23 0816 DD/ 1455 TD/TT: Side Laster Tack: Procedure Note Donotuseinterpreter, Image - 11/16/2023 [facility] [address] [place], [place] [address] Mammography Report Signed Patient: Dinesh Melendez#: [id number] : 1965Acct:[id number] Age/Sex: 57 / FADM Date: 10/20/23 Loc: [facility] Attending Dr: Apple Crowder MD Ordering Physician: Apple Rivera MDResults: 2Benign Findings Date of Service: 10/20/23Follow Up: 1 Year From Orig ina Mammogram Procedure(s): MM tomosynthesis screening BI Accession Number(s): [id number] cc: Apple Rivera MD EXAMINATION: MM SCREENING [...] in OV> 11/16/23 0816 DD/ 1455 TD/TT: Side Laster Tack: us Apple Crowder MD IMG BI PROCEDURES Makr loenardo Result - Final * Hm Colonoscopy (12/20/2018) us Historical Provider HEALTH MAINTENANCE Final Result from Last 3 Months or Most Recently Relevant to Health Maintenance [facility] MED[facility] STAND ADULT Care Teams Audio Visual Facilities Engineer Relationship Specialty Start Date End Date Apple Rivera MD [address] [place] [address] PCP - General Family Medicine 10/31/19 Teresa Wolf, MarkD [address] [place] [address] Pharmacist Internal Medicine 09/14/23 María Van Dance MasterDirector Of Infection Control 05/19/23 David Mendez Dance MasterDirector Of Infection Control 07/20/24
--- OUTSIDE RECORDS SUMMARY | 2025-02-17 08:34 | XMS_ITS | Encounter Summary ---
Author Organization [employer] Address [address] [facility] 7t [place] [address] Care Team Providers Care Ict Educator Name Role Phone Apple Rivera MD Primary Care Provide r Teresa Wolf PharmD Unavailable [phone] Reason for Visit * Reason Comments Med Refill Encounter Details Date Type Department Care Team ([facility] st Contact Info) Description 06/16/2024 Refill [facility] MEDICINE [address] [place], [place] [phone] Teresa Wolf, PharmD [address] [place] [address] Type 2 diabetes mellitus with hyperglycemia, with long-term current use of insulin ([facility]) Social History Tobacco Use Types [...] Description 02/21/2025 9:30 AM EDT Office Visit [facility] ADULT DENTAL [address] [place] [address] Ngoc Shelby DDS [address] [place] [address] 02/28/2025 9:30 AM EDT Medication Management [facility] MEDICINE [address] [place] [address] Teresa Wolf, PharmD [address] [place] [address] 04/09/2025 10:00 AM EST Office Visit [facility] MEDICINE [address] [place] [address] Apple Rivera MD [address] [place] [address] 06/11/2025 10:00 AM EST Office Visit [facility] OPTOMETRY [address] [place] [phone] Yduith Velázquez, OD [address] [place] [address] 07/31/2025 8:45 AM EDT Office Visit [facility] ADULT DENTAL [address] [place] [address] Geeta Reyes [address] [place] [address] documented as of this encounter Goals Goal [...] documented as of this encounter Care Teams Ict Educator Relationship Specialty Start Date End Date Apple Rivera MD [address] [place] [phone] PCP - General Family Medicine 10/31/19 Teresa Wolf PharmD [address] [place] [address] Pharmacist Internal Medicine 09/14/23 María Van Financial ExaminerSchool Services Officer 05/19/23 David Mendez Financial ExaminerSchool Services Officer 07/20/24 documented as of this encounter
--- OUTSIDE RECORDS SUMMARY | 2025-02-17 08:34 | XMS_ITS | Encounter Summary ---
Author Organization [employer] Address [address] [facility] 7t [place] [address] Care Team Providers Care Documentation Billing Clerk Name Role Phone Apple Rivera MD Primary Care Provide r Teresa Wolf PharmD Unavailable [phone] Encounter Details Date Type Department Care Team (Latest Contact Info) Description 10/31/2021 Abstract [facility] CONVERSIONS Dental, Provider, DDS Social History Tobacco [...] Care Team ( st Contact Info) Description 02/21/2025 9:30 AM EDT Office Visit [facility] ADULT DENTAL [address] [place] [address] Ngoc Shelby, DDS [address] [place] [address] 02/28/2025 9:30 AM EDT Medication Management [facility] MEDICINE [address] [place] [phone] Teresa Wolf, PharmD [address] [place] [address] 04/09/2025 10:00 AM EST Office Visit [facility] MEDICINE [address] [place] [phone] Apple Rivera MD [address] [place] [address] 06/11/2025 10:00 AM EST Office Visit [facility] OPTOMETRY [address] [place] [address] Aidan Velázquezn, OD [address] [place] [address] 07/31/2025 8:45 AM EDT Office Visit [facility] ADULT DENTAL [address] [place] [address] Eric, Geeta [address] [place] [address] documented as of this encounter Visit Diagnoses Not on filedocumented in this encounter Care Teams Documentation Billing Clerk Relationship Specialty Start Date End Date Apple Rivera MD [address] [place] [address] PCP - General Family Medicine 10/31/19 Teresa Wolf, MarkD [address] [place] [address] Pharmacist Internal Medicine 09/14/23 María Van Supervisor Toy Parts FormerProduction Leader 05/19/23 David Mendez Supervisor Toy Parts FormerProduction Leader 07/20/24 documented as of this encounter
--- OUTSIDE RECORDS SUMMARY | 2025-02-17 08:35 | XMS_ITS | Encounter Summary ---
Author Organization [employer] Address [address] [facility] 7t [place] [address] Care Team Providers Care Linen Aide Name Role Phone Apple Rivera MD Primary Care Provide r Teresa Wolf PharmD Unavailable [phone] Encounter Details Date Type Department Care Team (Latest Contact Info) Description 07/27/2019 Abstract [facility] CONVERSIONS Dental, Provider, DDS Social History Tobacco [...] [facility] [address] [place] [address] Ngoc Shelby, DDS [address] [place] [address] 02/28/2025 9:30 AM EDT Medication Management [facility] MEDICINE [address] [place] [phone] Teresa Wolf, PharmD [address] [place] [address] 04/09/2025 10:00 AM EST Office Visit [facility] MEDICINE [address] [place] [address] Apple Rivera MD [address] [place] [address] 06/11/2025 10:00 AM EST Office Visit [facility] OPTOMETRY [address] [place] [address] Aidan Velázquezn, OD [address] [place] [address] 07/31/2025 8:45 AM EDT Office Visit [facility] ADULT DENTAL [address] [place] [address] Eric, Geeta [address] [place] [address] documented as of this encounter Visit Diagnoses Not on filedocumented in this encounter Care Teams Linen Aide Relationship Specialty Start Date End Date Apple Rivera MD [address] [place] [address] PCP - General Family Medicine 10/31/19 Teresa Wolf, MarkD [address] [place] [address] Pharmacist Internal Medicine 09/14/23 María Van Third MillerRefrigerator Tester 05/19/23 David Mendez Third MillerRefrigerator Tester 07/20/24 documented as of this encounter
== END 2025-02-17 08:30 | disposition home or self-care (01) ==
LOC: HO.MAMMO 08:29
PROVIDERS: PCP Internal Medicine; Visit Provider Internal Medicine
DX: Z12.31 Encounter for screening mammogram for malignant neoplasm of breast (principal)
CPT/HCPCS: 77063; 77067

== ENCOUNTER → 2025-02-17 09:00 | Outpatient (BNV) | payer MEDICAID, SELFPAY | PROVIDERS: PCP Internal Medicine; Visit Provider Internal Medicine | DX: Z12.31 Encounter for screening mammogram for malignant neoplasm of breast (principal) | CPT/HCPCS: 77063; 77067 ==

== ENCOUNTER 2025-03-27 13:45 | Outpatient (REF) | payer MEDICAID, SELFPAY ==
--- OUTSIDE RECORDS SUMMARY | 2025-03-29 17:08 | XMS_ITS | Encounter Summary ---
Author Organization [employer] Address [address] [facility] 7t [place] [address] Care Team Providers Care Equine Vet Name Role Phone Apple Rivera MD Primary Care Provide r Teresa Wolf PharmD Unavailable [phone] Reason for Visit * Reason Comments Med Refill Encounter Details Date Type Department Care Team ([facility] st Contact Info) Description 06/26/2024 Refill [facility] MEDICINE [address] [place], [place] [phone] Teresa Wolf, PharmD [address] [place] [address] Essential hypertension Social History Tobacco Use Types [...] Care Team (Late st Contact Info) Description 04/03/2025 9:00 AM EST Medication Management [facility] MEDICINE [address] [place] [address] Teresa Wolf, PharmD [address] [place] [address] 04/09/2025 10:00 AM EST Office Visit [facility] MEDICINE [address] [place] [address] Apple Rivera MD [address] [place] [address] 06/11/2025 10:00 AM EST Office Visit [facility] OPTOMETRY [address] [place] [address] Yudith Velázquez, OD [address] [place] [address] 07/31/2025 8:45 AM EDT Office Visit [facility] ADULT DENTAL [address] [place] [address] Geeta Reyes [address] [place] [address] documented as of this encounter Goals Goal Patient Goal Type Associated Problems Recent Progress Patient-Stated? Author Blood Pressure < 140/90 Blood Pressure 156/80(2024 9:49 AM EDT) No Teresa Ramirez PharmD Consistently take Medications as Prescribed General No Teresa Ramirez PharmD Hemoglobin A1c < 7 Result Component 9.7( 9:40 AM EDT) No Teresa Ramirez PharmD documented as of this encounter Visit Diagnoses Diagnosis Essential hypertension Unspecified essential hypertension documented in this encounter Additional Health Concerns Assessment Noted Time PHQ-9 Depression Total Score: 0 12/13/19 24 9:31 AM EDT documented as of this encounter Care Teams Equine Vet Relationship Specialty Start Date End Date Apple Rivera MD [address] [place] [address] PCP - General Family Medicine 10/31/19 Teresa Wolf PharmD [address] [place] [address] Pharmacist Internal Medicine 09/14/23 María Van Housing Project ManagerGeotechnical Laboratory Technician 05/19/23 David Mendez Housing Project ManagerGeotechnical Laboratory Technician 07/20/24 documented as of this encounter
--- OUTSIDE RECORDS SUMMARY | 2025-03-29 17:08 | XMS_ITS | Encounter Summary ---
Author Organization [employer] Address [address] [facility] 7t [place] [address] Care Team Providers Care Paste Maker Name Role Phone Apple Rivera MD Primary Care Provide r Teresa Wolf PharmD Unavailable [phone] Reason for Visit * Reason Comments Med Refill Encounter Details Date Type Department Care Team ([facility] st Contact Info) Description 06/16/2024 Refill [facility] MEDICINE [address] [place], [place] [phone] Teresa Wolf, PharmD [address] [place] [address] Type 2 diabetes mellitus with hyperglycemia, with long-term current use of insulin ([facility]) Social History Tobacco Use Types Packs/Day [...] Description 04/03/2025 9:00 AM EST Medication Management [facility] MEDICINE [address] [place] [address] Teresa Wolf, PharmD [address] [place] [address] 04/09/2025 10:00 AM EST Office Visit [facility] MEDICINE [address] [place] [address] Apple Rivera MD [address] [place] [address] 06/11/2025 10:00 AM EST Office Visit [facility] OPTOMETRY [address] [place] [address] Yudith Velázquez, СВЕТЛАНА [address] [place] [address] 07/31/2025 8:45 AM EDT Office Visit [facility] ADULT DENTAL [address] [place] [address] Geeta Reyes [address] [place] [address] documented as of this encounter Goals Goal [...] documented as of this encounter Care Teams Paste Maker Relationship Specialty Start Date End Date Apple Rivera MD [address] [place] [address] PCP - General Family Medicine 10/31/19 Teresa Wolf PharmD [address] [place] [address] Pharmacist Internal Medicine 09/14/23 María Van Line OperatorManager Global 05/19/23 David Mendez Line OperatorManager Global 07/20/24 documented as of this encounter
--- OUTSIDE RECORDS SUMMARY | 2025-03-29 17:08 | XMS_ITS | Encounter Summary ---
Author Organization [employer] Address [address] [facility] 7t [place] [address] Care Team Providers Care Director Mba Name Role Phone Apple Rivera MD Primary Care Provide r Teresa Wolf PharmD Unavailable [phone] Reason for Visit * Reason Comments Med Refill Encounter Details Date Type Department Care Team ([facility] st Contact Info) Description 07/17/2024 Refill [facility] MEDICINE [address] [place], [place] [phone] Teresa Wolf, PharmD [address] [place] [address] Type 2 diabetes mellitus with hyperglycemia, with long-term current use of insulin ([facility]) Social History Tobacco Use Types [...] Description 04/03/2025 9:00 AM EST Medication Management [facility] MEDICINE [address] [place] [address] Teresa Wolf, PharmD [address] [place] [address] 04/09/2025 10:00 AM EST Office Visit [facility] MEDICINE [address] [place] [address] Apple Rivera MD [address] [place] [address] 06/11/2025 10:00 AM EST Office Visit [facility] OPTOMETRY [address] [place] [address] Yudith Velázquez, СВЕТЛАНА [address] [place] [address] 07/31/2025 8:45 AM EDT Office Visit [facility] ADULT DENTAL [address] [place] [address] Geeta Reyes [address] [place] [address] documented as of this encounter Goals Goal [...] documented as of this encounter Care Teams Director Mba Relationship Specialty Start Date End Date Apple Rivera MD [address] [place] [address] PCP - General Family Medicine 10/31/19 Teresa Wolf PharmD [address] [place] [address] Pharmacist Internal Medicine 09/14/23 María Van Relationship BankerComputer Engineering Technician 05/19/23 David Mendez Relationship BankerComputer Engineering Technician 07/20/24 documented as of this encounter
--- OUTSIDE RECORDS SUMMARY | 2025-03-29 17:08 | XMS_ITS | Encounter Summary ---
Author Organization [employer] Address [address] [facility] 7t [place] [address] Care Team Providers Care Wire Rope Sling Maker Name Role Phone Apple Rivera MD Primary Care Provide r Teresa Wolf PharmD Unavailable [phone] Encounter Details Date Type Department Care Team (Late Contact Info) Description 01/27/2023 Orders Only [address] [address] Provider, MD Sage Social History Tobacco Use [...] Upcoming Encounters Date Type Department Care Team ([facility] Contact Info) Description 04/03/2025 9:00 AM EST Medication Management [facility] MEDICINE [address] [place] [phone] Teresa Wolf, PharmD [address] [place] [address] 04/09/2025 10:00 AM EST Office Visit [address] [address] Apple Rivera MD [address] [place] [address] 06/11/2025 10:00 AM EST Office Visit [facility] OPTOMETRY [address] [facility] [address] Eber, Yudith, OD [address] [place] [address] 07/31/2025 8:45 AM EDT Office Visit [facility] ADULT DENTAL [address] [place] [address] Eric Geeta [address] [place] [address] documented as of this encounter Procedures Procedure [...] 10:39 AM EDT) Creatinine, Urine 24.51 mg/dL [facility] Microalbumin Urine <5.0 mg/L [facility] Microalbum Creatinine Ratio Ur TNP <30 ug/mg cr [facility] Comment:Unable to calculate albumin/creatinine ratio due to lowmicroalbumin or creatinine result. 10/19/2023 10:3 9 AM EDT 10/19/2023 12:06 PM EDT us Apple Crowder MD LAB URINE ORDERABLES Final Result Performing Organization Address [facility] de Phone Number [facility] [address] [place] [phone] * (ABNORMAL) Basic Metabolic Panel (10/19/2023 10:39 AM EDT) Sodium 137 135 - 145 mmol/L [facility] Potassium 4.8 3.3 - 5.1 mmol/L [facility] Chloride 96 96 - 108 mmol/L [facility] Carbon Dioxide 26 22 - 29 mmol/L [facility] Anion Gap 20 12 - 20 [facility] Urea Nitrogen (BUN) 20(H) 9 - 16 mg/dL [facility] Creatinine, Serum 0.90 0.5 - 1.4 mg/dL [facility] Estimated Glomerular Filt Rate >60 [facility] Comment:NOTE: For -Am erican individuals, multiply the result by 1.210.Chronic Kidney Disease: Estimated GFR < 60 mL/min/1.26h5Ppxzmq Kidney Disease: Estimated GFR < 15 mL/min/1.73m2 Glucose 262(H) 60 - 115 mg/dL [facility] Calcium 10.2 8.4 - 10.2 mg/dL [facility] 10/19/2023 10:3 9 AM EDT 10/19/2023 11:48 AM EDT us Apple rCowder MD LAB BLOOD ORDERABLES Final Result Performing Organization Address [facility] Co de Phone Number [facility] [address] [place] [phone] * (ABNORMAL) Vitamin D, 25-Hydroxy, Total, Immunoassay (10/01/2023 11:16 AM EDT) Vitamin D 25-OH Total 23.7(L) >30 ng/mL [facility] Comment:Health Based Referen ce Values*< 20 ng/mL Evojaaqes43-37 ng/mL Insufficient> 30 ng/mL Sufficient*Morteza WINSTON. N [...] Performing Organization Address City/[facility]/ZIP Co de Phone Number [facility] [address] [place] [phone] * Vitamin B12 (09/21/2023 8:20 AM EDT) Vitamin B12 293 200 - 900 pg/mL [facility] Comment:NORMAL 200-900 PG/M L INDETERMINATE 160-199 PG/ML DEFICIENT < 160 PG/ML 09/21/2023 8:20 AM EDT 09/21/2023 11:41 AM EDT us Apple Crowder MD LAB BLOOD ORDERABLES Final Result Performing Organization Address City/[facility]/ZIP Co de Phone Number [facility] [address] [place] [phone] * (ABNORMAL) Lipid Panel, Standard (09/21/2023 8:20 AM EDT) Triglycerides 139 <150 mg/dL [facility] Comment:Desirable Triglyceri de: less than 150 mg/dLBorderline High Triglyceride 150-199 mg/dLHigh Triglyceride: 200-499 mg/dLVery High Triglyceride: greater than or equal to 5OO mg/dL Cholesterol 236(H) <200 mg/dL [facility] Comment:Desirable Cholestero l: less than 200 mg/dLBorderline High Cholesterol: 200-239 mg/dLHigh Cholesterol: greater than 239 mg/dL LDL Cholesterol Calculated 144(H) <100 mg/dL [facility] Comment:Desirable LDL: less than 100 mg/dLNear Optimal/Above Optimal LDL: 110- 129 mg/dLBorderline High LDL: 130-159 mg/dLHigh LDL: 160-189 mg/dLVery High LDL: greater than or equal to 190 mg/dL HDL Cholesterol 65 >40 mg/dL [facility] Comment:Desirable HDL: great er than 40 mg/dL Note: This HDL assay may give artificially low results in patients with liver disease. 09/21/2023 8:20 AM EDT 09/21/2023 11:41 AM EDT Apple Crowder MD LAB BLOOD ORDERABLES Final Result [facility] [address] [place] [phone] * (ABNORMAL) Basic Metabolic Panel (09/21/2023 8:20 AM EDT) Sodium 140 135 - 145 mmol/L [facility] Potassium 4.5 3.3 - 5.1 mmol/L [facility] Chloride 104 96 - 108 mmol/L [facility] Carbon Dioxide 24 22 - 29 mmol/L [facility] Anion Gap 17 12 - 20 [facility] Urea Nitrogen (BUN) 20(H) 9 - 16 mg/dL [facility] Creatinine, Serum 0.78 0.5 - 1.4 mg/dL [facility] Estimated Glomerular Filt Rate >60 [facility] Comment:NOTE: For -Am erican individuals, multiply the result by 1.210.Chronic Kidney Disease: Estimated GFR < 60 mL/min/1.49h8Tozado Kidney Disease: Estimated GFR < 15 mL/min/1.73m2 Glucose 208(H) 60 - 115 mg/dL [facility] Calcium 9.9 8.4 - 10.2 mg/dL [facility] 09/21/2023 8:20 AM EDT 09/21/2023 11:41 AM EDT us Apple Crowder MD LAB BLOOD ORDERABLES Final Result Performing Organization Address [facility] Co de Phone Number [facility] [address] [place] [phone] * Hepatic Function Panel (09/21/2023 8:20 AM EDT) Bilirubin, Total 0.5 0.0 - 1.0 mg/dL [facility] Bilirubin, Direct 0.2 0.0 - 0.5 mg/dL [facility] Aspartate Amino Transferase 15 5 - 31 U/L [facility] Alanine Aminotransferase 16 0 - 31 U/L [facility] Total Protein 7.6 6.5 - 8.0 g/dL [facility] Albumin Level 4.2 3.5 - 5.0 g/dL [facility] Alkaline Phosphatase 73 39 - 117 U/L [facility] 09/21/2023 8:20 AM EDT 09/21/2023 11:41 AM EDT us Apple Crowder MD LAB BLOOD ORDERABLES Final Result Performing Organization Address [facility] Co de Phone Number [facility] [address] [place] [phone] * Hm Colonoscopy (12/20/2018) us Historical Provider HEALTH MAINTENANCE Final Result documented in this encounter Visit Diagnoses Not on filedocumented in this encounter Additional Health Concerns Assessment Noted Time PHQ-9 Depression Total Score: 0 09/30/19 23 9:12 AM EDT documented as of this encounter Care Teams Wire Rope Sling Maker Relationship Specialty Start Date End Date Apple Rivera MD [address] [place] [address] PCP - General Family Medicine 10/31/19 Teresa Wolf, Mario [address] [place] [address] Pharmacist Internal Medicine 09/14/23 María Van Educational InterpreterSanforizer 05/19/23 David Mendez Educational InterpreterSanforizer 07/20/24 documented as of this encounter
--- OUTSIDE RECORDS SUMMARY | 2025-03-29 17:09 | XMS_ITS | Encounter Summary ---
Author Organization [employer] Address [address] [facility] [address] [place] [address] Care Team Providers Care Asbestos Removal Supervisor Name Role Phone Apple Rivera MD Primary Care Provide r Teresa Wolf PharmD Unavailable [phone] Encounter Details Date Type Department Care Team (Latest Contact Info) Description 07/27/2019 Abstract [facility] CONVERSIONS Dental, Provider, DDS Social History Tobacco [...] Department Care Team ( Contact Info) Description 04/03/2025 9:00 AM EST Medication Management [facility] MEDICINE [address] [place] [address] Teresa Wolf, PharmD [address] [place] [address] 04/09/2025 10:00 AM EST Office Visit [facility] MEDICINE [address] [place] [address] Apple Rivera MD [address] [place] [address] 06/11/2025 10:00 AM EST Office Visit [facility] OPTOMETRY [address] [place] [id number] Yudith Velázquez, OD [address] [place] [address] 07/31/2025 8:45 AM EDT Office Visit [facility] ADULT DENTAL [address] [place] [address] Geeta Reyes [address] [place] [address] documented as of this encounter Visit Diagnoses Not on filedocumented in this encounter Care Teams Asbestos Removal Supervisor Relationship Specialty Start Date End Date Apple Rivera MD [address] [place] [address] PCP - General Family Medicine 10/31/19 Teresa Wolf PharmD [address] [place] [address] Pharmacist Internal Medicine 09/14/23 María Van Plant Sciences ProfessorElectronic Assembler 05/19/23 David Mendez Plant Sciences ProfessorElectronic Assembler 07/20/24 documented as of this encounter
--- OUTSIDE RECORDS SUMMARY | 2025-03-29 17:09 | XMS_ITS | Encounter Summary ---
Author Organization [employer] Address [address] [facility] 7[address] [place] [address] Care Team Providers Care Sql Data Architect Name Role Phone Apple Rviera MD Primary Care Provide r Teresa Wolf PharmD Unavailable [phone]- [phone] Encounter Details Date Type Department Care Team (Latest Contact Info) Description 10/31/2021 Abstract [facility] CONVERSIONS Dental, Provider, DDS Social History Tobacco [...] Care Team ( st Contact Info) Description 04/03/2025 9:00 AM EST Medication Management [facility] MEDICINE [address] [place] [address] Teresa Wolf, PharmD [address] [place] [address] 04/09/2025 10:00 AM EST Office Visit [facility] MEDICINE [address] [place] [address] Apple Rivera MD [address] [place] [address] 06/11/2025 10:00 AM EST Office Visit [facility] OPTOMETRY [address] [place] [id number] Yudith Velázquez, OD [address] [place] [address] 07/31/2025 8:45 AM EDT Office Visit [facility] ADULT DENTAL [address] [place] [address] Geeta Reyes [address] [place] [address] documented as of this encounter Visit Diagnoses Not on filedocumented in this encounter Care Teams Sql Data Architect Relationship Specialty Start Date End Date Apple Rivera MD [address] [place], [place] [phone] PCP - General Family Medicine 10/31/19 Teresa Wolf PharmD [address] [place] [address] Pharmacist Internal Medicine 09/14/23 María Van Php Software EngineerBoiling Off Winder 05/19/23 David Mendez Php Software EngineerBoiling Off Winder 07/20/24 documented as of this encounter
--- OUTSIDE RECORDS SUMMARY | 2025-03-29 17:09 | XMS_ITS | Encounter Summary ---
Author Organization [employer] Address [address] [facility] [address] [place] [address] Care Team Providers Care Log Snaker Name Role Phone Apple Rivera MD Primary Care Provide r Teresa Wolf PharmD Unavailable [phone]- [phone] Reason for Visit * Reason Comments Med Refill Encounter Details Date Type Department Care Team ([facility] st Contact Info) Description 03/19/2025 Refill [facility] MEDICINE [address] [place], [place] [phone] Teresa Wolf, PharmD [address] [place] [address] Type 2 diabetes mellitus with hyperglycemia, with long-term current use of insulin (HCC) Social History Tobacco Use Types Packs/Day Years [...] your housing situation today? I have kolby eli 01/05/[address] you li [...] Description 04/03/2025 9:00 AM EST Medication Management [facility] MEDICINE [address] [place] [address] Teresa Wolf, PharmD [address] [place] [address] 04/09/2025 10:00 AM EST Office Visit [facility] MEDICINE [address] [place] [address] Apple Rivera MD [address] [place] [address] 06/11/2025 10:00 AM EST Office Visit [facility] OPTOMETRY [address] [place] [address] Yudith Velázquez, СВЕТЛАНА [address] [place] [address] 07/31/2025 8:45 AM EDT Office Visit [facility] ADULT DENTAL [address] [place] [address] Geeta Reyes [address] [place] [address] documented as of this encounter Goals Goal [...] documented as of this encounter Care Teams Log Snaker Relationship Specialty Start Date End Date Apple Rivera MD [address] [place] [address] PCP - General Family Medicine 10/31/19 Teresa Wolf PharmD [address] [place] [address] Pharmacist Internal Medicine 09/14/23 María Van Screwdown OperatorSecurity Officer Supervisor 05/19/23 David Mendez Screwdown OperatorSecurity Officer Supervisor 07/20/24 documented as of this encounter
--- OUTSIDE RECORDS SUMMARY | 2025-03-29 17:09 | XMS_ITS | Clinical Summary ---
Author Organization [employer] Address [address] [place] [address] Care Team Providers Care Hogshead Mat Assembler Name Role Phone Apple Rivera MD Primary Care Provide r Teresa Wolf PharmD Unavailable [phone]- [phone] Allergies Active Allergy Reactions Criticality Noted Date Comments Mayur Inhibitors Cough 05/02/2024 Medications Continuous Blood Gluc Monitor Worker (Preen.MeStyle Marquis 2 [place]) deviceIndication s:Type 2 diabetes mellitus with hyperglycemia, with long-term current use of insulin ([facility]) Scan sensor every 8 hours 1 each 024 Active glucagon (Baqsimi) 3 MG/DOSE nasal powder Use if needed for low blood sugar emergencies by administering one full dose in one nostril as directed. If there is no response after 15 minutes, may administer a second dose as directed. 2 each 3 024 Active empagliflozin-me tFORMIN ER (Synjardy XR) 25-1000 MG 24 hr tabletIndication s:Type 2 diabetes mellitus with hyperglycemia, with long-term current use of insulin (HCC) TAKE 1 TABLET BY MOUTH EVERY MORNING 90 tablet 3 025 Active glucose (Glutose) 40 % gel oral gelIndications:T ype 2 diabetes mellitus with hyperglycemia, with long-term current use of insulin (HCC) Take 15 g by mouth if needed for low blood sugar. 45 g 11 025 Active Fiber-Lax 625 MG tabletIndication s:Constipation, unspecified constipation type TAKE 1 TABLET BY MOUTH EVERY MORNING 90 tablet 1 025 Active docusate sodium (Colace) 100 MG capsule Take 1 capsule (100 mg) by mouth if needed in the morning and at bedtime for constipation. 60 capsule 2025 Active Lancets 33G miscIndications: Type 2 diabetes mellitus with hyperglycemia, with long-term current use of insulin ([facility]) USE TO CHECK BLOOD SUGAR THREE TIMES DAILY 100 each Active Continuous Glucose Sensor (FreeStyle Marquis 2 Plus Sensor) miscIndications: Type 2 diabetes mellitus with hyperglycemia, with long-term current use of insulin ([facility]) 1 each Use as directed. Test blood sugar every 8 hours 2 each Active ezetimibe (Zetia) 10 MG tabletIndication s:Dyslipidemia Take 1 tablet (10 mg) by mouth Once per day. 30 tablet 2025 Active pantoprazole (ProtoNix) 40 MG EC tablet Take 40 mg by mouth before breakfast. Do not crush, chew, or split. Active Ventolin HFA 108 (90 Base) MCG/ACT inhalerIndicatio ns:Mild intermittent asthma with acute exacerbation INHALE 2 [...] Active pen needle 32G x 4 mm miscIndications: Type 2 diabetes mellitus with hyperglycemia, with long-term current use of insulin ([facility]) USE WITH INSULIN ADMINISTRATION THREE TIMES DAILY 100 each 025 2025 Active atorvastatin (Lipitor) 80 MG tabletIndication s:Dyslipidemia Take 1 tablet (80 mg) by mouth at bedtime. 90 tablet Active insulin glargine (Lantus SoloStar) 100 UNIT/ML penIndications:T ype 2 diabetes mellitus with hyperglycemia, with long-term current use of insulin ([facility]) INJECT 42 UNITS SUBCUTANEOUSLY ONCE DAILY Active amLODIPine-olmes heath (Diamante) 10-40 MG tabletIndication s:Essential hypertension Take 1 tablet by mouth Once per day. 90 tablet Active Tirzepatide (Mounjaro) 7.5 MG/0.5ML solution auto-injectorInd ications:Type 2 diabetes mellitus with hyperglycemia, with long-term current use of insulin ([facility]) Inject 7.5 mg under the skin every 7 (seven) days. 2 mL 2 Active insulin lispro (HumaLOG KWIKPEN) 100 UNIT/ML injectionIndicat ions:Type 2 diabetes mellitus with hyperglycemia, with long-term current use of insulin ([facility]) Inject subcutaneously twice daily 8 units before lunch and 8 units before dinner. Do not use if skipping meal. Active hydroCHLOROthiaz sivan 12.5 MG tabletIndication s:Essential hypertension TAKE 1 TABLET BY MOUTH EVERY MORNING 90 tablet 1 Active cyanocobalamin (Vitamin B-12) 1000 MCG tabletIndication s:B12 deficiency TAKE 1 TABLET BY MOUTH EVERY MORNING 90 tablet 1 Active FreeStyle Precision Juma Test test stripIndications :Type 2 diabetes mellitus with hyperglycemia (HCC) TEST BLOOD SUGAR EVERY 8 HOURS 100 strip 11 025 Active citalopram (CeleXA) 20 MG tabletIndication s:Mood disorder (CMS/HCC) TAKE 1 TABLET BY MOUTH EVERY MORNING 90 tablet 025 Active amLODIPine-olmes heath (Diamante) 10-20 MG tabletIndication s:Essential hypertension Take 1 tablet by mouth Once per day. 90 tablet 3 025 2024 Discontinued(D ose adjustment) hydroCHLOROthiaz sivan 12.5 MG tabletIndication s:Essential hypertension TAKE 1 TABLET BY MOUTH EVERY MORNING 90 tablet 1 025 2024 Discontinued cyanocobalamin (Vitamin B-12) 1000 MCG tabletIndication s:B12 deficiency TAKE 1 TABLET BY MOUTH EVERY MORNING 90 tablet 1 025 2024 Discontinued FreeStyle Precision Juma Test test strip TEST BLOOD SUGAR EVERY 8 HOURS 025 2024 Discontinued citalopram (CeleXA) 20 MG tabletIndication s:Mood disorder (CMS/HCC) TAKE 1 TABLET BY MOUTH EVERY MORNING 90 tablet 025 2024 Discontinued(R eorder (will not trigger notification to Pharmacy)) Tirzepatide (Mounjaro) 5 MG/0.5ML solution auto-injectorInd ications:Type 2 diabetes mellitus with hyperglycemia, with long-term current use of insulin (HCC) Inject 5 mg under the skin every 7 (seven) days. 2 mL 1 025 2024 Discontinued(D ose adjustment) insulin lispro (HumaLOG KWIKPEN) 100 UNIT/ML injectionIndicat ions:Type 2 diabetes mellitus with hyperglycemia, with long-term current use of insulin (HCC) Inject subcutaneously twice daily 6 units before lunch and 6 units before dinner. Do not use if skipping meal. 025 2024 Discontinued(R eorder (will not trigger notification to Pharmacy)) Active Problems Problem Noted Date Diagnosed Date Class 2 obesity 02/21/2025 Abfraction 01/26/2025 Periodontal disease 01/26/2025 Right hand [...] Encounters Date Type Department Care Team Description 03/27/2025 Refill [facility] [address] [place] [address] Teresa Wolf, Mario Type 2 diabetes mellitus with hyperglycemia ([facility]); Mood disorder ([facility]) 03/27/2025 Refill [facility] [address] [place] [address] Apple Rivera MD Mood disorder ([facility]) 03/26/2025 Refill [facility] [address] [place] [address] Apple Rivera MD Essential hypertension; B12 deficiency 03/19/2025 Refill [facility] [address] [place] [address] Teresa Wolf, Mario Type 2 diabetes mellitus with hyperglycemia, with long-term current use of insulin (HCC) 02/28/2025 Travel 02/21/2025 9:30 AM EDT Office Visit [facility] [address] [place] [address] Ngoc Shelby, DDS Abfraction (Primary Dx) 01/30/2025 Travel 01/30/2025 Refill [facility] [address] [place] [phone] Teresa Wolf PharmD Type 2 diabetes mellitus with hyperglycemia, with long-term current use of insulin ([facility]) 01/26/2025 8:00 AM EDT Office Visit [facility] [address] [place] [address] Geeta Reyes Gingival bleeding (Primary Dx); Missing teeth, acquired; Dental calculus; Generalized gingival recession; Abfraction; Periodontal disease 01/26/2025 Outside Procedure [facility] [address] [place] [address] Eber, Yudith, OD Presbyopia (Primary Dx) 01/22/2025 Telephone [facility] [address] [place] [address] Apple Rivera MD NOV RECALL 01/05/2025 11:15 AM EDT Office Visit [address] [address] Apple Rivera MD Type 2 diabetes mellitus with hyperglycemia, with long-term current use of insulin ([facility]); Essential hypertension; Primary osteoarthritis of left knee; Right hand pain; Mild intermittent asthma without complication; Encounter for screening mammogram for malignant neoplasm of breast 01/05/2025 9:15 AM EDT Office Visit [facility] [address] [place] [address] Eber, Yudith, OD Hyperopia of both eyes (Primary Dx) 01/05/2025 Results Follow-Up [address] [address] Apple Rivera MD XR Hand 3+ Views Right 01/05/2025 Travel 01/02/2025 Telephone [facility] [address] [place] [address] Apple Rivera MD Chart Prep 01/02/2025 Refill [facility] [address] [place] [address] Apple Rivera MD Mood disorder ([facility]) from Last 3 Months Immunizations Immunization Administration Dates Next Due Hep B, adult 08/23/2024 HepB-CpG 01/21/2024,12/13/2023 Influenza, seasonal, injecta ble, preservative free 02/28/2025 Moderna Covid-19 Vaccine 12+ 06/18/2021,10/18/19 21,09/18/2020 Moderna [...] is your housing situation today? I have kolbychun benitez 01/05/[address] you [...] Sign Reading Time Taken Comments Blood Pressure 156/80 02/28/2025 9:49 AM EDT Pulse 84 02/28/2025 9:42 AM EDT Temperature 36.1 C (97 F) [...] Description 04/03/2025 9:00 AM EST Medication Management [facility] [address] [place] [address] Teresa Wolf, PharmD [address] [place] [address] 04/09/2025 10:00 AM EST Office Visit [facility] [address] [place] [address] Apple Rivera MD [address] [place] [address] 06/11/2025 10:00 AM EST Office Visit [facility] [address] [place] [address] Yudith Velázquez, OD [address] [place] [address] 07/31/2025 8:45 AM EDT Office Visit [facility] [address] [place] [address] Geeta Reyes [address] [place] [address] Health Maintenance Due Date Last Done Comments CT Colonography 1966 FIT DNA/Cologuard 1966 FIT 1966 FOBT 1966 HIV Screening 1966 Sigmoidoscopy 1966 Diabetes: Foot Exam 1976 Alcohol/Substance Use Screening 1978 Hepatitis C Screening 1984 RSV Patients and Patients Aged 60 years or older (1 - Risk 50-74 years 1-dose series) 2016 Colonoscopy 12/21/2023 12/20/2018 Colorectal Cancer Screening 12/21/2023 Dental X-Ray: Full Mouth 11/01/2024 10/31/2021 COVID-19 Vaccine ( season) 2025 05/02/2024, 05/25/2022, 06/18/2021, Additional history exists Dental X-Ray: Bitewings 01/24/2025 01/24/2024, 10/31 Diabetes: Hemoglobin A1C 05/31/2025 025, 12/12/2024, 08/11/2024, Additional history exists Dental Oral Exam 07/27/2025 01/26/2025, 01/2024, 10/31/2021 Dental Prophylaxis 07/27/2025 01/26/2025, 0 07/25/2024, 01/24/2024, Additional history exists Disability Screening 10/05/2025 10/05/2024 Diabetes: Urine Protein Screening 10/12/2025 10/12/2024, 10/19/2023, 09/29/2022, Additional history exists Eye Exam 12/08/2025 12/08/2024, 11/15, 12/08/2024, Additional history exists Lipid Panel 12/26/2025 12/26/2024, 09/15, 12/20/2023, Additional history exists Depression Screening 01/05/2026 01/05/2025, 01/06/20 25 SDOH Screening 01/05/2026 01/05/2025 Mammogram 02/17/2026 02/17/2025, 06/0 09/2023, 06/16/2021, Additional history exists Tobacco Screening 02/21/2026 02/21/2025 Cervical Cancer Screening 12/12/2028 HPV/Cotest 12/12/2028 12/13/2023 Pap Smear 12/12/2028 12/13/2023 DTaP/Tdap/Td Vaccines (2 - Td or Tdap) 08/23/2034 08/23/2024 Pneumococcal Vaccine: 50+ Years Completed 10/01/2023 Zoster Vaccines Completed 04/04/2024, 01/21/2024 Hepatitis B Vaccines Completed 08/23/2024, 01/21/2024, 12/13/2023 Influenza Vaccine Completed 02/28/2025 HIB Vaccines Aged Out No longer eligi [...] Pressure 156/80(2024 9:49 AM EDT) No Teresa Ramirez, PharmD Consistently take Medications as Prescribed General No Teresa Ramirez, PharmD Hemoglobin A1c < 7 Result Component 9.7( 9:40 AM EDT) No Teresa Ramirez, PharmD Help patients manage their type 2 diabetes Care Plan Help patients manage their type 2 diabetes Blanca Fernandez LPN Weekly blood pressure task Care Plan Weekly blood pressure task Blanca Fernandez LPN Help patients manage their type 2 diabetes Care Plan Help patients manage their type 2 diabetes Blanca Fernandez LPN Patient has chronic kidney disease Care Plan Patient has chronic kidney disease Blanca Fernandez LPN Weekly blood pressure task Care Plan Weekly blood pressure task Blanca Fernandez LPN Patient has chronic kidney disease Care Plan Patient has chronic kidney disease Blanca Fernandez LPN Procedures Procedure Name Priority Date/Time Associated Diagnosis Comments POCT GLYCATED HEMOGLOBIN, TOTAL Routine 02/28/2025 9:40 AM EDT Type 2 diabetes mellitus with hyperglycemia, with long-term current use of insulin (HCC) CASE PRESENTATION, DETAILED AND EXTENSIVE TREATMENT PLANNING Routine 02/21/2025 9:30 AM EDT 29 B(V) RESIN-BASED COMPOSITE - 1 SURF, POSTERIOR Routine 02/21/2025 9:30 AM EDT Abfraction 20 B(V) RESIN-BASED COMPOSITE - 1 SURF, POSTERIOR Routine 02/21/2025 9:30 AM EDT Abfraction BI MAMMOGRAM SCREENING TOMOSYNTHESIS BILATERAL Routine 02/17/2025 8:57 AM EDT Encounter for screening mammogram for malignant neoplasm of breast PERIODIC ORAL EVALUATION - ESTABLISHED PATIENT Routine [...] EDT XR HAND 3+ VIEWS RIGHT Routine 11:19 AM EDT Right hand pain POCT GLUCOSE Routine 01/05/2025 11:15 AM EDT Type 2 diabetes mellitus with hyperglycemia, with long-term current use of insulin ([facility]) LIPID PANEL, STANDARD Routine 12/26/2024 8:16 AM EDT ALBUMIN, RANDOM URINE W/CREATININE Routine 10/12/2024 8:15 AM EDT Type 2 diabetes mellitus with hyperglycemia, with long-term current use of insulin ([facility]) BITEWINGS - 4 RADIOGRAPHIC IMAGES Routine 01/24/2024 1:00 PM EDT Dental calculus Gingival bleeding Missing teeth, acquired Generalized gingival recession Extruded tooth THINPREP IMAGING PAP AND HPV MRNA E6/E7 Routine 12/13/2023 12:00 AM EDT INTRAORAL - COMPLETE SERIES OF RADIOGRAPHIC IMAGES Routine 10/31/2021 12:00 AM EDT HM COLONOSCOPY Routine 12/20/2018 from Last 3 Months or Most Recently Relevant to Health Maintenance Results * (ABNORMAL) POCT A1c (02/28/2025 9:40 AM EDT) Hemoglobin A1C 9.7(A) 4.0 - 5.7 % QC Media Lot # [id number] Lot# Expiration Date [id number] Blood 02/28/2025 9:40 AM EDT Apple Crowder MD POINT OF CARE TEST EN TER/EDIT ORDERABLES Final Result * BI Mammogram Screening Tomosynthesis Bilateral (02/17/2025 8:57 AM EDT) Anatomical Region Laterality Modality Breast Bilateral Mammography 02/17/2025 8:57 AM EDT Narrative 02/25/2025 2:21 PM EDT [facility] [address] [place] [address] Mammography Report Signed Patient: Lety Melendez MR#: [id number] : 1965 Acct:[id number] Age/Sex: 59 / F ADM Date: 02/17/25 Loc: HO.MAMMO Attending Dr: Apple Crowder MD Ordering Physician: Apple Rivera MD Results: 1Negative Date of Service: 02/17/25 Follow Up: 1 Year From [facility] Mammogram Procedure(s): MM tomosynthesis screening BI Accession Number(s): [id number] cc: Apple Rivera MD Reason For Exam: screening EXAMINATION: MM SCREENING DIGITAL BREAST TOMOSYNTHESIS, BILATERAL CLINICAL INFORMATION: Screening. Asymptomatic. COMPARISON: Mammography: Comparison is made with available priors TECHNIQUE: Digital breast mammography with tomosynthesis is performed in both the craniocaudal and mediolateral oblique views along with computer-aided detection (CAD). FINDINGS: The breasts are almost entirely fatty. There are no significant masses, abnormal calcifications, or other abnormalities. MM/MM tomosynthesis screening BI IMPRESSION: No mammographic evidence of malignancy. ASSESSMENT: BI-RADS Category 1: Negative RECOMMENDATION: Routine annual mammography screening. 1 year F/U This examination should not preclude the clinical evaluation of a suspicious palpable abnormality. This patient's information was entered into a reminder system with a target due date for their next mammogram. Electronically signed by: Radha William DO 02/25/2025 02:18 PM EDT RP Dictated By: Radha William DO Signed By: <Electronically signed by Radha William DO in OV> 02/25/25 1418 DD/ 0857 TD/TT: 02/17/25 0900 Cardroom Hand: Procedure Note Donotuseinterpreter, Image - 02/25/2025 [place] [facility] [address] [place] [address] Mammography Report Signed Patient: Dinesh Melendez#: [id number] : 1965Acct:[id number] Age/Sex: 59 / FADM Date: 02/17/25 Loc: HO.MAMMO Attending Dr: Apple Crowder MD Ordering Physician: Apple Rivera MDResults: 1Negative Date of Service: 02/17/25Follow Up: 1 Year From Orig inal Mammogram Procedure(s): MM tomosynthesis screening BI Accession Number(s): [id number] cc: Apple Rivera MD Reason For Exam: screening EXAMINATION: MM SCREENING DIGITAL BREAST TOMOSYNTHESIS, BILATERAL CLINICAL INFORMATION: Screening. Asymptomatic. COMPARISON: Mammography: Comparison is made with available priors TECHNIQUE: Digital breast mammography with tomosynthesis is performed in both the craniocaudal and mediolateral oblique views along with computer-aided detection (CAD). FINDINGS: The breasts are almost entirely fatty. There are no significant masses, abnormal calcifications, or other abnormalities. MM/MM tomosynthesis screening BI IMPRESSION: No mammographic evidence of malignancy. ASSESSMENT: BI-RADS Category 1: Negative RECOMMENDATION: Routine annual mammography screening. 1 year F/U This examination should not preclude the clinical evaluation of a suspicious palpable abnormality. This patient's information was entered into a reminder system with a target due date for their next mammogram. Electronically signed by: Radha William DO 02/25/2025 02:18 PM EDT RP Dictated By: Radha William DO Signed By: <Electronically signed by Radha William DO in OV> 02/25/25 1418 DD/ 0857 TD/TT: 02/17/25 0900 Cardroom Hand: us Apple Crowder MD IMG BI PROCEDURES Mark leonardo Result - Final * FL Esophagus Barium Swallow (01/16/2025 7:25 AM EDT) Anatomical Region Laterality Modality Head, Neck Radiographic Glo ging 01/16/2025 7:25 AM EDT Narrative 01/16/2025 11:24 AM EDT [address] [address] Fluoroscopy Report Signed Patient: Lety Melendez MR#: [id number] : 1965 Acct:[id number] Age/Sex: 59 / F ADM Date: 01/16/25 Loc: RYLEE Attending Dr: Susannah Dela Cruz CNP Ordering Physician: Susannah Dela Cruz CNP Date of Service: 01/16/25 Procedure(s): FL barium swallow Accession Number(s): [id number] cc: Apple Rivera MD; Susannah Dela Cruz [...] 01/16/25 1122 DD/ 0725 TD/TT: 01/16/25 0801 Cardroom Hand: [facility] Procedure Note Donotuseinterpreter, Image - 01/16/2025 [place] [address] Fluoroscopy Report Signed Patient: Dinesh Melendez#: [id number] : 1965Acct:[id number] Age/Sex: 59 / FADM Date: 01/16/25 Loc: HOOMAR Attending Dr: Susannah Dela Cruz CNP Ordering Physician: Susannah Dela Cruz CNP Date of Service: 01/16/25 Procedure(s): FL barium swallow Accession Number(s): [id number] cc: Apple Rivera MD; Susannah Dela Cruz [...] 01/16/25 1122 DD/ 0725 TD/TT: 01/16/25 0801 Cardroom Hand: [facility] External Provider IMG FLU OROSCOPY PROCEDURES Final Result * XR Hand 3+ Views Right (01/05/2025 11:19 AM EDT) Anatomical Region Laterality Modality Upper Extremities, Hand Right Radiogra phic Imaging 01/05/2025 11:1 9 AM EDT Narrative 01/05/2025 12:21 [place] [address] XRay Report Signed Patient: Lety Melendez MR#: [id number] : 1965 Acct:[id number] Age/Sex: 59 / F ADM Date: 01/05/25 Loc: HO.HHCX Attending Dr: Apple Crowder MD Ordering Physician: Apple Rivera MD Date of Service: 01/05/25 Procedure(s): XR hand RT min 3V Accession Number(s): [id number] cc: Apple Rivera MD EXAMINATION: XR HAND, [...] 01/05/25 1219 DD/ 1119 TD/TT: 01/05/25 1204 Cardroom Hand: Procedure Note Donotuseinterpreter, Image - 01/05/[address] [address] XRay Report Signed Patient: Dinesh Melendez#: [id number] : 1965Acct:[id number] Age/Sex: 59 / FADM Date: 01/05/25 Loc: HO.HHCX Attending Dr: Apple Crowder MD Ordering Physician: Apple Rivera MD Date of Service: 01/05/25 Procedure(s): XR hand RT min 3V Accession Number(s): [id number] cc: Apple Rivera MD EXAMINATION: XR HAND, [...] 01/05/25 1219 DD/ 1119 TD/TT: 01/05/25 1204 Cardroom Hand: Apple Crowder MD IMG XR PROCEDURES Fin al Result * POCT Glucose (01/05/2025 11:15 AM EDT) Glucose Blood, POC 115 60 - 200 mg/dL Comment:random QC Media Lot # [id number] Lot# Expiration Date ,884,[id number] Blood Capillary blood specimen / Unknown 01/05/2025 11:15 AM EDT Apple Crowder MD POINT OF CARE TEST EN TER/EDIT ORDERABLES Final Result * (ABNORMAL) Lipid Panel, Standard (12/26/2024 8:16 AM EDT) Triglycerides 153(H) <150 mg/dL [facility] Comment:Desirable Triglyceri de: less than 150 mg/dLBorderline High Triglyceride 150-199 mg/dLHigh Triglyceride: 200-499 mg/dLVery High Triglyceride: greater than or equal to 5OO mg/dL Cholesterol 189 <200 mg/dL [facility] Comment:Desirable Cholestero l: less than 200 mg/dLBorderline High Cholesterol: 200-239 mg/dLHigh Cholesterol: greater than 239 mg/dL LDL Cholesterol Calculated 104(H) <100 mg/dL [facility] Comment:Desirable LDL: less than 100 mg/dLNear Optimal/Above Optimal LDL: 110- 129 mg/dLBorderline High LDL: 130-159 mg/dLHigh LDL: 160-189 mg/dLVery High LDL: greater than or equal to 190 mg/dL HDL Cholesterol 55 >40 mg/dL [facility] Comment:Desirable HDL: great er than 40 mg/dL Note: This HDL assay may give artificially low results in patients with liver disease. 12/26/2024 8:16 AM EDT 12/26/2024 11:18 AM EDT Apple Crowder MD LAB BLOOD ORDERABLES Final Result [facility] [address] [place] [address] [phone] * Albumin, Random Urine W/Creatinine (10/12/2024 8:15 AM EDT) Creatinine, Urine 156.35 mg/dL [facility] Microalbumin Urine 7.0 mg/L [facility] Microalbum Creatinine Ratio Ur 4.4 <30 ug/mg cr [facility] Comment:Albumin/Creatinine R atio Reference Ranges: Normal: < 30 ug/mg creatinine Microalbuminuria: 30 - 300 ug/mg creatinineClinical Albuminuria: > 300 ug/mg creatinine Urine (Urine, Random) 10/12/2024 8:15 AM EDT 10/12/2024 12:03 PM EDT Apple Crowder MD LAB URINE ORDERABLES Final Result [facility] [address] [place] [address] [phone] * ThinPrep Imaging Pap and HPV mRNA E6/E7 (12/13/2023 12:00 AM EDT) HPV nRNA E6/E7 Not Detected Not Detected [facility] Comment:Methodology: Transcr iption-Mediated AmplificationThis assay detects E6/E7 viral messenger RNA (mRNA) from 14high-risk HPV types (16,18,31,33,35,39,45,51,52,56,58,59,66,68).Cervical sources are required for HPV testing.If a vaginal source from a patient who has had atotal hysterectomy with removal of cervix wassubmitted, please contact the testing laboratoryfor alternative testing options.For additional information, please refer [email or web address] [email or web address](This link if provided for information/educational purposes only.)THIS TEST WAS PERFORMED AT:[facility] [place] [id number] LANCASTER MD SOURCE: SEE NOTE [facility] Comment:Cervix Report Status: TNP [facility] Clinical Information: SEE NOTE [facility] Comment:57 Y/O F LMP: SEE NOTE [facility] Comment:NONE GIVEN Prev. PAP: SEE NOTE [facility] Comment:NONE GIVEN Prev. BX: SEE NOTE [facility] Comment:NONE GIVEN Statement Of Adequacy: SEE NOTE [facility] Comment:Satisfactory for kushal luation.Endocervical/transformation zone component absent. General Categorization: [facility] Interpretation/Result: SEE NOTE [facility] Comment:Cytology Results: Ne gative for intraepitheliallesion or malignancy. Cytology Comment SEE NOTE [facility] Comment:This Pap test has be en evaluated with computerassisted technology. Freezing Machine Operator: SEE NOTE [facility] Comment:RXB, CT(ASCP)CT scre ening location: [place] [address] Review Freezing Machine Operator: [facility] Pathologist [facility] PAP Infection SEE NOTE [facility] Comment:Shift in vaginal adrian ra suggestive of bacterialvaginosis. See Note SEE [facility] Comment:EXPLANATORY NOTE:The Pap is a screening test for cervical cancer. It isnot a diagnostic test and is subject to false negativeand false positive results. It is most reliable when asatisfactory sample, regularly obtained, is submittedwith relevant clinical findings and history, and whenthe Pap result is evaluated along with historic andcurrent clinical information. 12/13/2023 12/13/2023 Narrative [facility] - 12/16/2023 12:26 PM EDT SEE SCANNED RESULTS IN [id number] Y/O FCERVIX us Apple Crowder MD LAB PATHOLOGY ORDERAB LES Final Result [facility] [address] [place] [phone] [phone] * Hm Colonoscopy (12/20/2018) us Historical Provider HEALTH MAINTENANCE Final Result from Last 3 Months or Most Recently Relevant to Health Maintenance Additional Health Concerns Active Problems Noted Date Diagnosed Date Help patients manage their type 2 diabetes 03/28 Weekly blood pressure task 03/28/2025 Help patients manage their type 2 diabetes 03/28 Patient has chronic kidney disease 03/28/2025 Weekly blood pressure task 03/28/2025 Patient has chronic kidney disease 03/28/2025 Insurance [facility] C3 DENTAL-[facility] MEDICAID STAND ADULT Care Teams Hogshead Mat Assembler Relationship Specialty Start Date End Date Apple Rivera MD [address] [place] [address] PCP - General Family Medicine 10/31/19 Teresa Wolf, MarkD [address] [place] [address] Pharmacist Internal Medicine 09/14/23 María Van Production Planning SupervisorMaxillofacial Prosthodontist 05/19/23 David Mendez Production Planning SupervisorMaxillofacial Prosthodontist 07/20/24
--- OUTSIDE RECORDS SUMMARY | 2025-03-29 17:09 | XMS_ITS | Encounter Summary ---
Author Organization [employer] Address [address] [facility] 7t [place] [address] Care Team Providers Care Sales Operations Specialist Name Role Phone Apple Rivera MD Primary Care Provide r Teresa Wolf PharmD Unavailable [phone]- [phone] Reason for Visit * Reason Comments Med Refill Encounter Details Date Type Department Care Team ([facility] Contact Info) Description 03/27/2025 Refill [facility] MEDICINE [address] [place], [place] [phone] Teresa Wolf, PharmD [address] [place] [address] Type 2 diabetes mellitus with hyperglycemia (HCC); Mood disorder (CMS/HCC) Social History Tobacco Use Types Packs/Day Years [...] your housing situation today? I have kolby sing 01/05/[address] you li [...] Description 04/03/2025 9:00 AM EST Medication Management [facility] MEDICINE [address] [place] [address] Teresa Wolf, PharmD [address] [place] [address] 04/09/2025 10:00 AM EST Office Visit [facility] MEDICINE [address] [place] [address] Apple Rivera MD [address] [place] [address] 06/11/2025 10:00 AM EST Office Visit [facility] OPTOMETRY [address] [place] [address] Yudith Velázquez, ВСЕТЛАНА [address] [place] [address] 07/31/2025 8:45 AM EDT Office Visit [facility] ADULT DENTAL [address] [place] [address] Geeta Reyes [address] [place] [address] documented as of this encounter Goals Goal [...] Diagnoses Diagnosis Type 2 diabetes mellitus with hyperglycemia (HCC) Mood disorder (CMS/HCC) Unspecified episodic mood disorder documented in this encounter Additional Health Concerns Assessment Noted Time PHQ-9 Depression Total Score: 0 01/06/20 25 11:16 AM EDT documented as of this encounter Care Teams Sales Operations Specialist Relationship Specialty Start Date End Date Apple Rivera MD [address] [place] [address] PCP - General Family Medicine 10/31/19 Teresa Wolf PharmD [address] [place] [address] Pharmacist Internal Medicine 09/14/23 María Van Spikemaking SupervisorPants Presser Automatic 05/19/23 David Mendez Spikemaking SupervisorPants Presser Automatic 07/20/24 documented as of this encounter
--- OUTSIDE RECORDS SUMMARY | 2025-03-29 17:09 | XMS_ITS | Clinical Summary ---
Author Organization [address] [place] [address] Address [address] [place] [address] Phone Care Team Providers Care Marine Service Station Attendant Name Role Phone Apple Rivera MD Primary [...] Onychomycosis 2023 T2DM (type 2 diabetes mellitus) ([facility] V24, [facility] V28) 2023 Vaginal infection 2023 Encounters Date Type Department Care Team Description 01/10/2025 Telephone Gastroenterology - [place] 175 [facility] [address] [facility] [address] [place] [address] Giovanna Galaviz NP from Last 3 Months Medical History Medical History Date Comments T2DM (type 2 diabetes mellit ) ([facility] V24, [facility] V28) DX:T2DM (type 2 diabetes krystyna litus) ([facility]) HTN (hypertension) DX:HTN (hyper tension) Onychomycosis DX:Onychomycosis [...] 1976 Cervical Cancer Screening: Pap Smear 12/25/1987 RSV Immunization Adult Patients (1 - Risk 50-74 years 1-dose series) 2016 HIV Screening 01/10/2024 Hepatitis C Screening 01/10/2024 Social Influencers of Health Screening 01/10/2024 Diabetes: Annual Urine Albumin-Creatinine Ratio (uACR) 02/24/2024 Depression Screening 05/17/2024 COVID-19 Vaccine ( season) 2025 05/02/2024, 05/25/2022, 06/18/2021, Additional history exists Influenza Vaccine (#1) 2025 Diabetes: Blood Sugar [...] topic Insurance MEDICA[place] - [place] Care Teams Marine Service Station Attendant Relationship Specialty Start Date End Date Apple Rivera MD [address] [place] [phone] PCP - General 10/06/23
--- OUTSIDE RECORDS SUMMARY | 2025-03-29 17:09 | XMS_ITS | Encounter Summary ---
Author Organization [employer] Address 75 [facility] 7t [place] [address] Care Team Providers Care Snowboard Designer Name Role Phone Apple Rivera MD Primary Care Provide r Teresa Wolf PharmD Unavailable [phone] Reason for Visit * Reason Comments Med Refill Encounter Details Date Type Department Care Team ([facility] st Contact Info) Description 03/26/2025 Refill [facility] MEDICINE [address] [place], [place] [phone] Apple Rivear MD [address] [place], [place] [phone] Essential hypertension; B12 deficiency Social History Tobacco Use Types Packs/Day Years [...] 04/03/2025 9:00 AM EST Medication Management [facility] MEDICINE [address] [place] [address] Teresa Wolf, PharmD [address] [place] [address] 04/09/2025 10:00 AM EST Office Visit [facility] MEDICINE [address] [place] [address] Apple Rivera MD [address] [place] [address] 06/11/2025 10:00 AM EST Office Visit [facility] OPTOMETRY [address] [place] [address] Yudith Velázquez, OD [address] [place] [address] 07/31/2025 8:45 AM EDT Office Visit [facility] ADULT DENTAL [address] [place] [address] Geeta Reyes [address] [place] [address] documented as of this encounter Goals Goal [...] Diagnoses Diagnosis Essential hypertension Unspecified essential hypertension B12 deficiency documented in this encounter Additional Health Concerns Assessment Noted Time PHQ-9 Depression Total Score: 0 01/06/20 25 11:16 AM EDT documented as of this encounter Care Teams Snowboard Designer Relationship Specialty Start Date End Date Apple Rivera MD [address] [place] [address] PCP - General Family Medicine 10/31/19 Teresa Wolf PharmD [address] [place] [address] Pharmacist Internal Medicine 09/14/23 María Van Classroom AssistantDirector Of Midwifery/Staff Midwife 05/19/23 David Mendez Classroom AssistantDirector Of Midwifery/Staff Midwife 07/20/24 documented as of this encounter
--- OUTSIDE RECORDS SUMMARY | 2025-03-29 17:09 | XMS_ITS | Encounter Summary ---
Author Organization [employer] Address 75 [facility] 7t [place] [address] Care Team Providers Care Oil Lease Buyer Name Role Phone Apple Rivera MD Primary Care Provide r Teresa Wolf PharmD Unavailable [phone] Reason for Visit * Reason Comments Med Refill Encounter Details Date Type Department Care Team ([facility] Contact Info) Description 03/27/2025 Refill [facility] MED [facility] PEDS [address] [place], [place] [phone] Apple Rivera MD [address] [place] [address] Mood disorder (CMS/HCC) Social History Tobacco Use [...] Description 04/03/2025 9:00 AM EST Medication Management [facility] MEDICINE [address] [place] [address] Teresa Wolf, PharmD [address] [place] [address] 04/09/2025 10:00 AM EST Office Visit [facility] MEDICINE [address] [place] [phone] Apple Rivera MD [address] [place] [address] 06/11/2025 10:00 AM EST Office Visit [facility] OPTOMETRY [address] [place] [address] Yudith Velázquez, СВЕТЛАНА [address] [place] [address] 07/31/2025 8:45 AM EDT Office Visit [facility] ADULT DENTAL [address] [place] [address] Geeta Reyes [address] [place] [address] documented as of this encounter Goals Goal Patient Goal Type Associated Problems Recent Progress Patient-Stated? Author Blood Pressure < 140/90 Blood Pressure 156/80(2024 9:49 AM EDT) No Teresa Ramirez, PharmD Consistently take Medications as Prescribed General No Teresa Ramirez, PharmD Hemoglobin A1c < 7 Result Component 9.7( 9:40 AM EDT) No Teresa Ramirez PharmD documented as of this encounter Visit Diagnoses Diagnosis Mood disorder (CMS/[facility]) Unspecified episodic mood disorder documented in this encounter Additional Health Concerns Assessment Noted Time PHQ-9 Depression Total Score: 0 01/06/20 11:16 AM EDT documented as of this encounter Care Teams Oil Lease Buyer Relationship Specialty Start Date End Date Apple Rivera MD [address] [place] [address] PCP - General Family Medicine 10/31/19 Teresa Wolf, PharmD [address] [place] [address] Pharmacist Internal Medicine 09/14/23 María Van Cake Cutter MachineNnps 05/19/23 David Mendez Cake Cutter MachineNnps 07/20/24 documented as of this encounter
--- OUTSIDE RECORDS SUMMARY | 2025-03-29 17:09 | XMS_ITS | Encounter Summary ---
Author Organization [employer] Address 75 [facility] 7t [place] [address] Care Team Providers Care Director Of Managed Care Name Role Phone Apple Rivera MD Primary Care Provide r Teresa Wolf PharmD Unavailable [phone] Reason for Visit * Reason Comments Med Refill Encounter Details Date Type Department Care Team ([facility] st Contact Info) Description 01/22/[address] [facility] MEDICINE [address] [place], [place] [phone] Teresa Wolf, PharmD [address] [place] [address] Type 2 diabetes mellitus with hyperglycemia, with long-term current use of insulin ([facility]) Social History Tobacco Use Types Packs/Day Years [...] 9:00 AM EST Medication Management [facility] MEDICINE [address] [place] [address] Teresa Wolf, PharmD [address] [place] [address] 04/09/2025 10:00 AM EST Office Visit [facility] MEDICINE [address] [place] [address] Apple Rivera MD [address] [place] [address] 06/11/2025 10:00 AM EST Office Visit [facility] OPTOMETRY [address] [place] [address] Yudith Velázquez, СВЕТЛАНА [address] [place] [address] 07/31/2025 8:45 AM EDT Office Visit [facility] ADULT DENTAL [address] [place] [address] Geeta Reyes [address] [place] [address] documented as of this encounter Goals Goal [...] as of this encounter Care Teams Director Of Managed Care Relationship Specialty Start Date End Date Apple Rivera MD [address] [place] [address] PCP - General Family Medicine 10/31/19 Teresa Wolf PharmD [address] [place] [address] Pharmacist Internal Medicine 09/14/23 María Van Panel Saw OperatorGlobal Engineering Manager 05/19/23 David Mendez Panel Saw OperatorGlobal Engineering Manager 07/20/24 documented as of this encounter
--- OUTSIDE RECORDS SUMMARY | 2025-03-29 17:09 | XMS_ITS | Encounter Summary ---
Author Organization [employer] Address 75 [facility] 7t [place] [address] Care Team Providers Care Professional Volleyball Player Name Role Phone Apple Rivera MD Primary Care Provide r Teresa Wolf PharmD Unavailable [phone] Reason for Visit * Reason Comments Med Refill Encounter Details Date Type Department Care Team ([facility] st Contact Info) Description 01/30/[address] [facility] MEDICINE [address] [place], [place] [phone] Teresa Wolf, PharmD [address] [place] [address] Type 2 diabetes mellitus with hyperglycemia, with long-term current use of insulin ([facility]) Social History Tobacco Use Types [...] Description 04/03/2025 9:00 AM EST Medication Management [facility] MEDICINE [address] [place] [address] Teresa Wolf, PharmD [address] [place] [address] 04/09/2025 10:00 AM EST Office Visit [facility] MEDICINE [address] [place] [address] Apple Rivera MD [address] [place] [address] 06/11/2025 10:00 AM EST Office Visit [facility] OPTOMETRY [address] [place] [address] Yudith Velázquez, СВЕТЛАНА [address] [place] [address] 07/31/2025 8:45 AM EDT Office Visit [facility] ADULT DENTAL [address] [place] [address] Geeta Reyes [address] [place] [address] documented as of this encounter Goals Goal [...] documented as of this encounter Care Teams Professional Volleyball Player Relationship Specialty Start Date End Date Apple Rivera MD [address] [place] [address] PCP - General Family Medicine 10/31/19 Teresa Wolf PharmD [address] [place] [address] Pharmacist Internal Medicine 09/14/23 María Van Scout ExecutiveWaste Elimination 05/19/23 David Mendez Scout ExecutiveWaste Elimination 07/20/24 documented as of this encounter
--- OUTSIDE RECORDS SUMMARY | 2025-03-29 17:09 | XMS_ITS | Encounter Summary ---
Author Organization [employer] Address 75 [facility] 7t [place] [address] Care Team Providers Care Roastmaster Name Role Phone Apple Rivera MD Primary Care Provide r Teresa Wolf PharmD Unavailable [phone] Encounter Details Date Type Department Care Team (Latest Contact Info) Description 06/02/2018 Abstract [facility] CONVERSIONS Dental, Provider, DDS Social History [...] 04/03/2025 9:00 AM EST Medication Management [facility] MEDICINE [address] [place] [address] Teresa Wolf, PharmD [address] [place] [address] 04/09/2025 10:00 AM EST Office Visit [facility] MEDICINE [address] [place] [address] Apple Rivera MD [address] [place] [address] 06/11/2025 10:00 AM EST Office Visit [facility] OPTOMETRY [address] [place] [address] Yudith Velázquez, OD [address] [place] [address] 07/31/2025 8:45 AM EDT Office Visit [facility] ADULT DENTAL [address] [place] [address] Geeta Reyes [address] [place] [address] documented as of this encounter Visit Diagnoses Not on filedocumented in this encounter Care Teams Roastmaster Relationship Specialty Start Date End Date Apple Rivera MD [address] [place] [address] PCP - General Family Medicine 10/31/19 Teresa Wolf PharmD [address] [place] [address] Pharmacist Internal Medicine 09/14/23 María Van Web Production ArtistLag Screwer 05/19/23 David Mendez Web Production ArtistLag Screwer 07/20/24 documented as of this encounter
== END 2025-03-27 13:46 | disposition home or self-care (01) ==
LOC: HO.HOSX 13:45
PROVIDERS: Visit Provider Physician Assistant
DX: Z13.89 Encounter for screening for other disorder (principal)

== ENCOUNTER 2025-03-29 08:07 | Outpatient (REF) | payer MEDICAID, SELFPAY | END 2025-03-29 08:08 | disposition home or self-care (01) | LOC: HO.HOSX 08:07 | PROVIDERS: Visit Provider Physician Assistant | DX: Z13.89 Encounter for screening for other disorder (principal) ==

== ENCOUNTER 2025-04-04 08:11 | Outpatient (REF) | payer MEDICAID, SELFPAY ==
--- NOTE | ~2025-04-04 | XR_ITS ---
EXAMINATION: XR KNEE, LEFT CLINICAL INFORMATION: M25.569 - Pain in unspecified knee COMPARISON: None available. TECHNIQUE: Four views of the left knee. FINDINGS: No visible acute fracture or dislocation. Joint spaces are maintained. Small medial compartment marginal spurring. Chronic appearing calcification/ossification along the medial aspect of the medial femoral condyle. No significant effusion. XR/XR knee LT 3V IMPRESSION: No acute findings. Mild medial compartment marginal spurring. Additional findings as above. Electronically signed by: Demarcus Balderrama MD 04/04/2025 09:23 AM MAGGIE
[2025-04-04 13:36] LABS: Alanine Aminotransferase 20 U/L (0-31); Albumin Level 4.2 g/dL (3.5-5.0); Alkaline Phosphatase 93 U/L (39-117); Anion Gap 11 (12-20); Aspartate Amino Transferase 22 U/L (5-31); Blood Urea Nitrogen 15 mg/dL (9-16); Calcium 9.1 mg/dL (8.4-10.2); Carbon Dioxide 25 mmol/L (22-29); Chloride 107 mmol/L (96-108); Cholesterol 215 mg/dL (<200); Estimated Glomerular Filt Rate > 60; HDL Cholesterol 53 mg/dL (>40); Potassium 4.0 mmol/L (3.3-5.1); Sodium 139 mmol/L (135-145); Total Protein 7.3 g/dL (6.5-8.0); Triglycerides 225 mg/dL (<150)
--- OUTSIDE RECORDS SUMMARY | 2025-04-04 15:44 | XMS_ITS | Encounter Summary ---
Author Organization [employer] Address 75 [facility] 7t [place] [address] Care Team Providers Care Business Test Analyst Name Role Phone Apple Rivera MD Primary Care Provide r Teresa Wolf PharmD Unavailable [phone] Encounter Details Date Type Department Care Team ([facility] Contact Info) Description 01/27/2023 Orders Only [address] [address] Provider, MD Sage Social History Tobacco Use [...] Upcoming Encounters Date Type Department Care Team ([facility] Contact Info) Description 04/09/2025 10:00 AM EST Office Visit [address] [phone] Apple Rivera MD [address] [place] [address] 04/30/2025 9:30 AM EST Medication Management [address] [address] Teresa Wolf, PharmD [address] [place] [address] 06/11/2025 10:00 AM EST Office Visit [facility] OPTOMETRY [address] [place] [address] Eber, Yudith, OD 230 [place] [address] 07/31/2025 8:45 AM EDT Office Visit [facility] ADULT DENTAL [address] [place] [address] Eric Geeta [address] [place] [address] documented as of this encounter Procedures Procedure [...] AM EDT) Creatinine, Urine 24.51 mg/dL [facility] Microalbumin Urine <5.0 mg/L [facility] Microalbum Creatinine Ratio Ur TNP <30 ug/mg cr [facility] Comment:Unable to calculate albumin/creatinine ratio due to lowmicroalbumin or creatinine result. 10/19/2023 10:3 9 AM EDT 10/19/2023 12:06 PM EDT us Apple Crowder MD LAB URINE ORDERABLES Final Result Performing Organization Address [facility] de Phone Number [facility] [address] [place] [phone] * (ABNORMAL) Basic Metabolic Panel (10/19/2023 10:39 AM EDT) Sodium 137 135 - 145 mmol/L [facility] Potassium 4.8 3.3 - 5.1 mmol/L [facility] Chloride 96 96 - 108 mmol/L [facility] Carbon Dioxide 26 22 - 29 mmol/L [facility] Anion Gap 20 12 - 20 [facility] Urea Nitrogen (BUN) 20(H) 9 - 16 mg/dL [facility] Creatinine, Serum 0.90 0.5 - 1.4 mg/dL [facility] Estimated Glomerular Filt Rate >60 [facility] Comment:NOTE: For -Am erican individuals, multiply the result by 1.210.Chronic Kidney Disease: Estimated GFR < 60 mL/min/1.19z6Anvjza Kidney Disease: Estimated GFR < 15 mL/min/1.73m2 Glucose 262(H) 60 - 115 mg/dL [facility] Calcium 10.2 8.4 - 10.2 mg/dL [facility] 10/19/2023 10:3 9 AM EDT 10/19/2023 11:48 AM EDT us Apple Crowder MD LAB BLOOD ORDERABLES Final Result Performing Organization Address [facility] Co de Phone Number [facility] [address] [place] [phone] * (ABNORMAL) Vitamin D, 25-Hydroxy, Total, Immunoassay (10/01/2023 11:16 AM EDT) Vitamin D 25-OH Total 23.7(L) >30 ng/mL [facility] Comment:Health Based Referen ce Values*< 20 ng/mL Xetivtezd12-92 ng/mL Insufficient> 30 ng/mL Sufficient*Morteza WINSTON. N [...] BLOOD ORDERABLES Final Result Performing Organization Address City/[facility]/ZIP Co de Phone Number [facility] [address] [place] [phone] * Vitamin B12 (09/21/2023 8:20 AM EDT) Pathologist [facility] Vitamin B12 293 200 - 900 pg/mL [facility] Comment:NORMAL 200-900 PG/ML INDETERMINATE 160-199 PG/ML DEFICIENT < 160 PG/ML 09/21/2023 8:20 AM EDT 09/21/2023 11:41 AM EDT us Apple Crowder MD LAB BLOOD ORDERABLES Final Result Performing Organization Address City/[facility]/ZIP Co de Phone Number [facility] [address] [place] [phone] * (ABNORMAL) Lipid Panel, Standard (09/21/2023 8:20 AM EDT) Triglycerides 139 <150 mg/dL [facility] Comment:Desirable Triglyceri de: less than 150 mg/dLBorderline High Triglyceride 150-199 mg/dLHigh Triglyceride: 200-499 mg/dLVery High Triglyceride: greater than or equal to 5OO mg/dL Cholesterol 236(H) <200 mg/dL [facility] Comment:Desirable Cholestero l: less than 200 mg/dLBorderline High Cholesterol: 200-239 mg/dLHigh Cholesterol: greater than 239 mg/dL LDL Cholesterol Calculated 144(H) <100 mg/dL [facility] Comment:Desirable LDL: less than 100 mg/dLNear Optimal/Above Optimal LDL: 110- 129 mg/dLBorderline High LDL: 130-159 mg/dLHigh LDL: 160-189 mg/dLVery High LDL: greater than or equal to 190 mg/dL HDL Cholesterol 65 >40 mg/dL [facility] Comment:Desirable HDL: great er than 40 mg/dL Note: This HDL assay may give artificially low results in patients with liver disease. 09/21/2023 8:20 AM EDT 09/21/2023 11:41 AM EDT us Apple Crowder MD LAB BLOOD ORDERABLES Final Result [facility] [address] [place] [phone] * (ABNORMAL) Basic Metabolic Panel (09/21/2023 8:20 AM EDT) Sodium 140 135 - 145 mmol/L [facility] Potassium 4.5 3.3 - 5.1 mmol/L [facility] Chloride 104 96 - 108 mmol/L [facility] Carbon Dioxide 24 22 - 29 mmol/L [facility] Anion Gap 17 12 - 20 [facility] Urea Nitrogen (BUN) 20(H) 9 - 16 mg/dL [facility] Creatinine, Serum 0.78 0.5 - 1.4 mg/dL [facility] Estimated Glomerular Filt Rate >60 [facility] Comment:NOTE: For -Am erican individuals, multiply the result by 1.210.Chronic Kidney Disease: Estimated GFR < 60 mL/min/1.65p7Ndqupb Kidney Disease: Estimated GFR < 15 mL/min/1.73m2 Glucose 208(H) 60 - 115 mg/dL [facility] Calcium 9.9 8.4 - 10.2 mg/dL [facility] 09/21/2023 8:20 AM EDT 09/21/2023 11:41 AM EDT us Apple Crowder MD LAB BLOOD ORDERABLES Final Result Performing Organization Address [facility] Co de Phone Number [facility] [address] [place] [phone] * Hepatic Function Panel (09/21/2023 8:20 AM EDT) Bilirubin, Total 0.5 0.0 - 1.0 mg/dL [facility] Bilirubin, Direct 0.2 0.0 - 0.5 mg/dL [facility] Aspartate Amino Transferase 15 5 - 31 U/L [facility] Alanine Aminotransferase 16 0 - 31 U/L [facility] Total Protein 7.6 6.5 - 8.0 g/dL [facility] Albumin Level 4.2 3.5 - 5.0 g/dL [facility] Alkaline Phosphatase 73 39 - 117 U/L [facility] 09/21/2023 8:20 AM EDT 09/21/2023 11:41 AM EDT Apple Crowder MD LAB BLOOD ORDERABLES Final Result Performing Organization Address [facility] Co de Phone Number [facility] [address] [place] [phone] * Hm Colonoscopy (12/20/2018) us Historical Provider HEALTH MAINTENANCE Final Result documented in this encounter Visit Diagnoses Not on filedocumented in this encounter Additional Health Concerns Assessment Noted Time PHQ-9 Depression Total Score: 0 09/30/19 23 9:12 AM EDT documented as of this encounter Care Teams Business Test Analyst Relationship Specialty Start Date End Date Apple Rivera MD [address] [place] [address] PCP - General Family Medicine 10/31/19 Teresa Wolf, Mario [address] [place] [address] Pharmacist Internal Medicine 09/14/23 María Van Singing MessengerRice Drier 05/19/23 David Mendez Singing MessengerRice Drier 07/20/24 documented as of this encounter
--- OUTSIDE RECORDS SUMMARY | 2025-04-04 15:44 | XMS_ITS | Encounter Summary ---
Author Organization [employer] Address 75 [facility] 7t [place] [address] Care Team Providers Care Asset Protection Detective Name Role Phone Apple Rivera MD Primary Care Provide r Teresa Wolf PharmD Unavailable [phone] Reason for Visit * Reason Comments Med Refill Encounter Details Date Type Department Care Team ([facility] st Contact Info) Description 06/26/2024 Refill [facility] [address] [place], [place] [phone] Teresa Wolf, PharmD [address] [place] [address] Essential hypertension Social History Tobacco Use Types [...] Care Team (Late st Contact Info) Description 04/09/2025 10:00 AM EST Office Visit [facility] [address] [place] [address] Apple Rivera MD [address] [place] [address] 04/30/2025 9:30 AM EST Medication Management [facility] [address] [place] [address] Teresa Wolf, PharmD [address] [place] [address] 06/11/2025 10:00 AM EST Office Visit [facility] OPTOMETRY [address] [place] [address] Yudith Velázquez, OD 230 [place] [address] 07/31/2025 8:45 AM EDT Office Visit [facility] ADULT DENTAL [address] [place] [address] Geeta Reyes [address] [place] [address] documented as of this encounter Goals Goal Patient Goal Type Associated Problems Recent Progress Patient-Stated? Author Blood Pressure < 140/90 Blood Pressure 150/80(2024 9:37 AM EST) No Teresa Ramirez PharmD Consistently take Medications [...] documented as of this encounter Care Teams Asset Protection Detective Relationship Specialty Start Date End Date Apple Rivera MD [address] [place] [address] PCP - General Family Medicine 10/31/19 Teresa Wolf PharmD [address] [place] [address] Pharmacist Internal Medicine 09/14/23 María Van Manager HeartBiscuit Factory Worker 05/19/23 David Mendez Manager HeartBiscuit Factory Worker 07/20/24 documented as of this encounter
--- OUTSIDE RECORDS SUMMARY | 2025-04-04 15:44 | XMS_ITS | Encounter Summary ---
Author Organization [employer] Address 75 [facility] 7t [place] [address] Care Team Providers Care Earth Science Faculty Member Name Role Phone Apple Rivera MD Primary Care Provide r Teresa Wolf PharmD Unavailable [phone] Reason for Visit * Reason Comments Med Refill Encounter Details Date Type Department Care Team ([facility] st Contact Info) Description 07/17/2024 Refill [facility] MED[facility]INE [address] [place], [place] [phone] Teresa Wolf, PharmD [address] [place] [address] Type 2 diabetes mellitus with hyperglycemia, with long-term current use of insulin ([facility]) Social History Tobacco Use Types [...] Description 04/09/2025 10:00 AM EST Office Visit [facility] [address] [place] [address] Apple Rivera MD [address] [place] [address] 04/30/2025 9:30 AM EST Medication Management [facility] [address] [place] [address] Teresa Wolf, PharmD [address] [place] [address] 06/11/2025 10:00 AM EST Office Visit [facility] OPTOMETRY [address] [place] [address] Yudith Velázquez, OD [address] [place] [address] 07/31/2025 8:45 AM EDT Office Visit [facility] ADULT DENTAL [address] [place] [address] Geeta Reyes [address] [place] [address] documented as of this encounter Goals Goal [...] documented as of this encounter Care Teams Earth Science Faculty Member Relationship Specialty Start Date End Date Apple Rivera MD [address] [place] [address] PCP - General Family Medicine 10/31/19 Teresa Wolf PharmD [address] [place] [address] Pharmacist Internal Medicine 09/14/23 María Van Longwall ForemanKier Pleater 05/19/23 David Mendez Longwall ForemanKier Pleater 07/20/24 documented as of this encounter
--- OUTSIDE RECORDS SUMMARY | 2025-04-04 15:44 | XMS_ITS | Encounter Summary ---
Author Organization [employer] Address 75 [facility] 7t [place] [address] Care Team Providers Care Head Sawyer Name Role Phone Apple Rivera MD Primary Care Provide r Teresa Wolf PharmD Unavailable [phone] Reason for Visit * Reason Comments Med Refill Encounter Details Date Type Department Care Team ([facility] st Contact Info) Description 06/16/2024 Refill [facility] [address] [place], [place] [phone] Teresa Wolf, PharmD [address] [place] [address] Type 2 diabetes mellitus with hyperglycemia, with long-term current use of insulin ([facility]) Social History Tobacco Use Types Packs/Day Years [...] Description 04/09/2025 10:00 AM EST Office Visit [facility] [address] [place] [address] Apple Rivera MD [address] [place] [address] 04/30/2025 9:30 AM EST Medication Management [facility] [address] [place] [address] Teresa Wolf, PharmD [address] [place] [address] 06/11/2025 10:00 AM EST Office Visit [facility] OPTOMETRY [address] [place] [address] Yudith Velázquez, OD [address] [place] [address] 07/31/2025 8:45 AM EDT Office Visit [facility] ADULT DENTAL [address] [place] [address] Geeta Reyes [address] [place] [address] documented as of this encounter Goals Goal [...] documented as of this encounter Care Teams Head Sawyer Relationship Specialty Start Date End Date Apple Rivera MD [address] [place] [address] PCP - General Family Medicine 10/31/19 Teresa Wolf PharmD [address] [place] [address] Pharmacist Internal Medicine 09/14/23 María Van Shaper HandAnimated Cartoons Painter 05/19/23 David Mendez Shaper HandAnimated Cartoons Painter 07/20/24 documented as of this encounter
--- OUTSIDE RECORDS SUMMARY | 2025-04-04 15:45 | XMS_ITS | Encounter Summary ---
Author Organization [employer] Address 75 [facility] 7t [place] [address] Care Team Providers Care Lithograph Printer Name Role Phone Apple Rivera MD Primary Care Provide r Teresa Wolf PharmD Unavailable [phone] Reason for Visit * Reason Comments Med Refill Encounter Details Date Type Department Care Team ([facility] st Contact Info) Description 01/30/2025 Refill [facility]INE [address] [place], [place] [phone] Teresa Wolf, PharmD [address] [place] [address] Type 2 diabetes mellitus with hyperglycemia, with long-term current use of insulin ([facility]) Social History Tobacco [...] Description 04/09/2025 10:00 AM EST Office Visit [facility] [address] [place] [address] Apple Rivera MD [address] [place] [address] 04/30/2025 9:30 AM EST Medication Management [facility] [address] [place] [address] Teresa Wolf, PharmD [address] [place] [address] 06/11/2025 10:00 AM EST Office Visit [facility] OPTOMETRY [address] [place] [address] Yudith Velázquez, OD [address] [place] [address] 07/31/2025 8:45 AM EDT Office Visit [facility] ADULT DENTAL [address] [place] [address] Geeta Reyes [address] [place] [address] documented as of this encounter Goals Goal [...] documented as of this encounter Care Teams Lithograph Printer Relationship Specialty Start Date End Date Apple Rivera MD [address] [place] [address] PCP - General Family Medicine 10/31/19 Teresa Wolf PharmD [address] [place] [address] Pharmacist Internal Medicine 09/14/23 María Van Breastfeeding Peer CounselorEpic Kaleidoscope Analyst 05/19/23 David Mendez Breastfeeding Peer CounselorEpic Kaleidoscope Analyst 07/20/24 documented as of this encounter
--- OUTSIDE RECORDS SUMMARY | 2025-04-04 15:45 | XMS_ITS | Encounter Summary ---
Author Organization [employer] Address [address] [facility] 7t [place] [address] Care Team Providers Care Title One Teacher Name Role Phone Apple Rivera MD Primary Care Provide r Teresa Wolf PharmD Unavailable [phone] Encounter Details Date Type Department Care Team (Late st Contact Info) Description 04/04/2025 Orders Only [facility] External Provider, [facility] Social History Tobacco Use Types Packs/Day Years [...] Description 04/09/2025 10:00 AM EST Office Visit [facility] [address] [place] [address] Apple Rivera MD [address] [place] [address] 04/30/2025 9:30 AM EST Medication Management [facility] [address] [place] [address] Teresa Wolf, PharmD [address] [place] [address] 06/11/2025 10:00 AM EST Office Visit [facility] OPTOMETRY [address] [place] [address] Eber, Yudith, OD [address] [place] [address] 07/31/2025 8:45 AM EDT Office Visit [facility] ADULT DENTAL [address] [place] [address] Geeta Reyes [address] [place] [address] documented as of this encounter Goals Goal Patient Goal Type Associated Problems Recent Progress Patient-Stated? Author Blood Pressure < 140/90 Blood Pressure 150/80(2024 9:37 AM EST) No Teresa Ramirez, PharmD Consistently take Medications as Prescribed General No Piers-Gambl e, Teresa, PharmD Hemoglobin A1c < 7 Result Component 9.7( 9:40 AM EDT) No Piers-Gambl e, Teresa, PharmD Help patients manage their type 2 diabetes Care Plan Help patients manage their type 2 diabetes No Blanca Flanagan LPN Weekly blood pressure task Care Plan Weekly blood pressure task No Blanca Flanagan LPN Help patients manage their type 2 diabetes Care Plan Help patients manage their type 2 diabetes No Blanca Flanagan LPN Patient has chronic kidney disease Care Plan Patient has chronic kidney disease No Blanca Flanagan LPN Weekly blood pressure task Care Plan Weekly blood pressure task No Blanca Flanagan LPN Patient has chronic kidney disease Care Plan Patient has chronic kidney disease No Blanca Flanagan CHICKEN AND FISH CLEANER Weekly blood pressure task Care Plan Weekly blood pressure task No V[place] Vela Weekly blood pressure task Care Plan Weekly blood pressure task No [place]ela Patient has chronic kidney disease Care Plan Patient has chronic kidney disease No [place]ela Patient has chronic kidney disease Care Plan Patient has chronic kidney disease No [place]ela Weekly blood pressure task Care Plan Weekly blood pressure task No Piers-Gambl e, Teresa, PharmD Weekly blood pressure task Care Plan Weekly blood pressure task No Piers-Gambl e, Teresa, PharmD Patient has chronic kidney disease Care Plan Patient has chronic kidney disease No Piers-Gambl e, Teresa, PharmD Patient has chronic kidney disease Care Plan Patient has chronic kidney disease No Piers-Gambl e, Teresa, PharmD Weekly blood pressure task Care Plan Weekly blood pressure task No Piers-Gambl e, Teresa, PharmD Weekly blood pressure task Care Plan Weekly blood pressure task No Piers-Gambl e, Teresa, PharmD Patient has chronic kidney disease Care Plan Patient has chronic kidney disease No Piers-Gambl e, Teresa, PharmD Patient has chronic kidney disease Care Plan Patient has chronic kidney disease No Piers-Gambl e, Teresa, PharmD documented as of this encounter Procedures Procedure Name Priority Date/Time Associated Diagnosis Comments XR KNEE 3 VIEWS LEFT Routine 04/04/2025 8:58 AM EST HEPATIC FUNCTION PANEL Routine 04/04/2025 8:16 AM EST LIPID PANEL, STANDARD Routine 04/04/2025 8:16 AM EST BASIC METABOLIC PANEL Routine 04/04/2025 8:16 AM EST documented in this encounter Results * XR Knee 3 Views Left (04/04/2025 8:58 AM EST) Anatomical Region Laterality Modality Lower Extremities, Knee Left Radiogra phic Imaging 04/04/2025 8:58 AM EST Narrative 04/04/2025 9:25 AM EST [address] [address] XRay Report Signed Patient: Lety Melendez MR#: [id number] : 1965 Acct:[id number] Age/Sex: 59 / F ADM Date: 04/04/25 [facility] Dr: Apple Crowder MD Ordering Physician: Macie Weathers PA-C Date of Service: 04/04/25 Procedure(s): XR knee LT 3V Accession Number(s): [id number] cc: Apple Rivera MD; Macie Weathers PA-C Reason for Exam: M25.569 - Pain in unspecified knee EXAMINATION: XR KNEE, LEFT CLINICAL INFORMATION: M25.569 - Pain in unspecified knee COMPARISON: None available. TECHNIQUE: Four views of the left knee. FINDINGS: No visible acute fracture or dislocation. Joint spaces are maintained. Small medial compartment marginal spurring. Chronic appearing calcification/ossification along the medial aspect of the medial femoral condyle. No significant effusion. XR/XR knee LT 3V IMPRESSION: No acute findings. Mild medial compartment marginal spurring. Additional findings as above. Electronically signed by: Demarcus Balderrama MD 04/04/2025 09:23 AM EST Dictated By: Demarcus Balderrama MD Signed By: <Electronically signed by Demarcus Balderrama MD in OV> 04/04/25922 DD/ 7 TD/TT: 04/04/25918 Roll Plugger: KARIME Procedure Note Donotuseinterpreter, Image - 04/04/2025 [facility] [address] [place] [address] XRay Report Signed Patient: Dinesh Melendez#: [id number] : 1965Acct:[id number] Age/Sex: 59 / FADM Date: 04/04/25 Loc: [facility] Attending Dr: Apple Crowder MD Ordering Physician: Macie Weathers PA-C Date of Service: 04/04/25 Procedure(s): XR knee LT 3V Accession Number(s): [id number] cc: Apple Rivera MD; Macie Weathers PA-C Reason for Exam: M25.569 - Pain in unspecified knee EXAMINATION: XR KNEE, LEFT CLINICAL INFORMATION: M25.569 - Pain in unspecified knee COMPARISON: None available. TECHNIQUE: Four views of the left knee. FINDINGS: No visible acute fracture or dislocation. Joint spaces are maintained. Small medial compartment marginal spurring. Chronic appearing calcification/ossification along the medial aspect of the medial femoral condyle. No significant effusion. XR/XR knee LT 3V IMPRESSION: No acute findings. Mild medial compartment marginal spurring. Additional findings as above. Electronically signed by: Demarcus Balderrama MD 04/04/2025 09:23 AM EST Dictated By: Demarcus Balderrama MD Signed By: <Electronically signed by Demarcus Balderrama MD in OV> 04/04/25922 DD/ 7 TD/TT: 04/04/25918 Roll Plugger: KARIME [facility] External Provider IMG XR PROCEDURES Edited Result - Final * (ABNORMAL) Lipid Panel, Standard (04/04/2025 8:16 AM EST) Triglycerides 225(H) <150 mg/dL [facility] Comment:Desirable Triglyceri de: less than 150 mg/dLBorderline High Triglyceride 150-199 mg/dLHigh Triglyceride: 200-499 mg/dLVery High Triglyceride: greater than or equal to 5OO mg/dL Cholesterol 215(H) <200 mg/dL [facility] Comment:Desirable Cholestero l: less than 200 mg/dLBorderline High Cholesterol: 200-239 mg/dLHigh Cholesterol: greater than 239 mg/dL LDL Cholesterol Calculated 117(H) <100 mg/dL [facility] Comment:Desirable LDL: less than 100 mg/dLNear Optimal/Above Optimal LDL: 110- 129 mg/dLBorderline High LDL: 130-159 mg/dLHigh LDL: 160-189 mg/dLVery High LDL: greater than or equal to 190 mg/dL HDL Cholesterol 53 >40 mg/dL [facility] Comment:Desirable HDL: great er than 40 mg/dL Note: This HDL assay may give artificially low results in patients with liver disease. 04/04/2025 8:16 AM EST 04/04/2025 11:01 AM EST us Apple Crowder MD LAB BLOOD ORDERABLES Final Result [facility] [address] [place] [phone] * (ABNORMAL) Basic Metabolic Panel (04/04/2025 8:16 AM EST) Sodium 139 135 - 145 mmol/L [facility] Potassium 4.0 3.3 - 5.1 mmol/L [facility] Chloride 107 96 - 108 mmol/L [facility] Carbon Dioxide 25 22 - 29 mmol/L [facility] Anion Gap 11(L) 12 - 20 [facility] Urea Nitrogen (BUN) 15 9 - 16 mg/dL [facility] Creatinine, Serum 0.57 0.5 - 1.4 mg/dL [facility] Estimated Glomerular Filt Rate >60 [facility] Comment:Chronic Kidney Disea se: Estimated GFR < 60 mL/min/[id number] Kidney Disease: Estimated GFR < 15 mL/min/1.73m2 Glucose 154(H) 60 - 115 mg/dL [facility] Calcium 9.1 8.4 - 10.2 mg/dL [facility] 04/04/2025 8:16 AM EST 04/04/2025 11:01 AM EST us Apple Crowder MD LAB BLOOD ORDERABLES Final Result Performing Organization Address [facility] Co de Phone Number [facility] [address] [place] [address] [phone] * Hepatic Function Panel (04/04/2025 8:16 AM EST) Bilirubin, Total 0.3 0.0 - 1.0 mg/dL [facility] Bilirubin, Direct 0.2 0.0 - 0.5 mg/dL [facility] Aspartate Amino Transferase 22 5 - 31 U/L [facility] Alanine Aminotransferase 20 0 - 31 U/L [facility] Total Protein 7.3 6.5 - 8.0 g/dL [facility] Albumin Level 4.2 3.5 - 5.0 g/dL [facility] Alkaline Phosphatase 93 39 - 117 U/L [facility] 04/04/2025 8:16 AM EST 04/04/2025 11:01 AM EST us Apple Crowder MD LAB BLOOD ORDERABLES Final Result Performing Organization Address [facility] Co de Phone Number [facility] [address] [place] [address] [phone] documented in this encounter Visit Diagnoses Not on filedocumented in this encounter Additional Health Concerns Active Problems Noted Date Diagnosed Date Help patients manage their type 2 diabetes 03/28 Weekly blood pressure task 03/28/2025 Help patients manage their type 2 diabetes 03/28 Patient has chronic kidney disease 03/28/2025 Weekly blood pressure task 03/28/2025 Patient has chronic kidney disease 03/28/2025 Weekly blood pressure task 04/02/2025 Weekly blood pressure task 04/02/2025 Patient has chronic kidney disease 04/02/2025 Patient has chronic kidney disease 04/02/2025 Weekly blood pressure task 04/03/2025 Weekly blood pressure task 04/03/2025 Patient has chronic kidney disease 04/03/2025 Patient has chronic kidney disease 04/03/2025 Weekly blood pressure task 04/04/2025 Weekly blood pressure task 04/04/2025 Patient has chronic kidney disease 04/04/2025 Patient has chronic kidney disease 04/04/2025 Assessment Noted Time PHQ-9 Depression Total Score: 0 01/06/20 11:16 AM EDT documented as of this encounter Care Teams Title One Teacher Relationship Specialty Start Date End Date Apple Rivera MD [address] [place] [address] PCP - General Family Medicine 10/31/19 Teresa Wolf, MarkD [address] [place] [address] Pharmacist Internal Medicine 09/14/[address] Cleaning Equipment OperatorAction Finisher 05/19/[address] Cleaning Equipment OperatorAction Finisher 07/20/24 documented as of this encounter
--- OUTSIDE RECORDS SUMMARY | 2025-04-04 15:45 | XMS_ITS | Encounter Summary ---
Author Organization [employer] Address 75 [facility] 7t [place] [address] Care Team Providers Care Circular Knitter Helper Name Role Phone Apple Rivera MD Primary Care Provide r Teresa Wolf PharmD Unavailable [phone] Encounter Details Date Type Department Care Team (Latest Contact Info) Description 10/31/2021 Abstract [facility] CONVERSIONS Dental, Provider, DDS Social History [...] Care Team ( st Contact Info) Description 04/09/2025 10:00 AM EST Office Visit [facility] MEDICINE [address] [place] [address] Apple Rivera MD [address] [place] [address] 04/30/2025 9:30 AM EST Medication Management [facility] MEDICINE [address] [place] [address] Teresa Wolf, PharmD [address] [place] [address] 06/11/2025 10:00 AM EST Office Visit [facility] OPTOMETRY [address] [place] [address] Yudith Velázquez, OD [address] [place] [address] 07/31/2025 8:45 AM EDT Office Visit [facility] ADULT DENTAL [address] [place] [address] Geeta Reyes [address] [place] [address] documented as of this encounter Visit Diagnoses Not on filedocumented in this encounter Care Teams Circular Knitter Helper Relationship Specialty Start Date End Date Apple Rivera MD [address] [place], [place] [phone] PCP - General Family Medicine 10/31/19 Teresa Wolf PharmD [address] [place] [address] Pharmacist Internal Medicine 09/14/23 María Van Tree DeadenerDirect Service Worker 05/19/23 David Mendez Tree DeadenerDirect Service Worker 07/20/24 documented as of this encounter
--- OUTSIDE RECORDS SUMMARY | 2025-04-04 15:45 | XMS_ITS | Encounter Summary ---
Author Organization [employer] Address 75 [facility] 7t [place] [address] Care Team Providers Care Industrial Psychology Professor Name Role Phone Apple Rivera MD Primary Care Provide r Teresa Wolf PharmD Unavailable [phone] Reason for Visit * Reason Comments Med Refill Encounter Details Date Type Department Care Team ([facility] st Contact Info) Description 01/22/2024 Refill [facility] MED[facility]INE [address] [place], [place] [phone] Teresa Wolf, PharmD [address] [place] [address] Type 2 diabetes mellitus with hyperglycemia, with long-term current use of insulin ([facility]) Social History Tobacco Use Types Packs/Day Years [...] Description 04/09/2025 10:00 AM EST Office Visit [facility] [address] [place] [address] Apple Rivera MD [address] [place] [address] 04/30/2025 9:30 AM EST Medication Management [facility] [address] [place] [address] Teresa Wolf, PharmD [address] [place] [address] 06/11/2025 10:00 AM EST Office Visit [facility] OPTOMETRY [address] [place] [address] Yudith Velázquez, OD [address] [place] [address] 07/31/2025 8:45 AM EDT Office Visit [facility] ADULT DENTAL [address] [place] [address] Geeta Reyes [address] [place] [address] documented as of this encounter Goals Goal [...] documented as of this encounter Care Teams Industrial Psychology Professor Relationship Specialty Start Date End Date Apple Rivera MD [address] [place] [address] PCP - General Family Medicine 10/31/19 Teresa Wolf PharmD [address] [place] [address] Pharmacist Internal Medicine 09/14/23 María Van Grid CasterPiano Mechanic Apprentice 05/19/23 David Mendez Grid CasterPiano Mechanic Apprentice 07/20/24 documented as of this encounter
--- OUTSIDE RECORDS SUMMARY | 2025-04-04 15:45 | XMS_ITS | Encounter Summary ---
Author Organization [employer] Address 75 [facility] 7t [place] [address] Care Team Providers Care Asset Management Coordinator Name Role Phone Apple Rivera MD Primary Care Provide r Teresa Wolf PharmD Unavailable [phone] Encounter Details Date Type Department Care Team (Latest Contact Info) Description 04/04/2025 Travel Social History Tobacco Use Types Packs/Day Years [...] Description 04/09/2025 10:00 AM EST Office Visit [facility] [address] [place] [address] Apple Rivera MD [address] [place] [address] 04/30/2025 9:30 AM EST Medication Management [facility] [address] [place] [address] Teresa Wolf, PharmD [address] [place] [address] 06/11/2025 10:00 AM EST Office Visit [facility] OPTOMETRY [address] [place] [address] Eber, Yudith, OD [address] [place] [address] 07/31/2025 8:45 AM EDT Office Visit [facility] ADULT DENTAL [address] [place] [address] Eric, Geeta [address] [place] [address] documented as of this encounter Goals Goal [...] Teresa, PharmD documented as of this encounter Visit [...] as of this encounter Care Teams Asset Management Coordinator Relationship Specialty Start Date End Date Apple Rivera MD [address] [place] [address] PCP - General Family Medicine 10/31/19 Teresa Wolf, MarkD [address] [place] [address] Pharmacist Internal Medicine 09/14/23 María Van First Aid InstructorPacking And Wrapping Supervisor 05/19/23 David Mendez First Aid InstructorPacking And Wrapping Supervisor 07/20/24 documented as of this encounter
--- OUTSIDE RECORDS SUMMARY | 2025-04-04 15:45 | XMS_ITS | Encounter Summary ---
Author Organization [employer] Address [address] [facility] [address] [place] [address] Care Team Providers Care Lab Assistant Name Role Phone Apple Rivera MD Primary Care Provide r Teresa Wolf PharmD Unavailable [phone] Encounter Details Date Type Department Care Team (Latest Contact Info) Description 07/27/2019 Abstract [facility] CONVERSIONS Dental, Provider, DDS Social History Tobacco [...] Department Care Team ( Contact Info) Description 04/09/2025 10:00 AM EST Office Visit [facility] MEDICINE [address] [place] [address] Apple Rivera MD [address] [place] [address] 04/30/2025 9:30 AM EST Medication Management [facility] MEDICINE [address] [place] [address] Teresa Wolf, PharmD [address] [place] [address] 06/11/2025 10:00 AM EST Office Visit [facility] OPTOMETRY [address] [place] [address] Yudith Velázquez, OD [address] [place] [address] 07/31/2025 8:45 AM EDT Office Visit [facility] ADULT DENTAL [address] [place] [address] Geeta Reyes [address] [place] [address] documented as of this encounter Visit Diagnoses Not on filedocumented in this encounter Care Teams Lab Assistant Relationship Specialty Start Date End Date Apple Rivera MD [address] [place] [address] PCP - General Family Medicine 10/31/19 Teresa Wolf PharmD [address] [place] [address] Pharmacist Internal Medicine 09/14/23 María Van Adult Protective CaseworkerIrs Agent 05/19/23 David Mendez Adult Protective CaseworkerIrs Agent 07/20/24 documented as of this encounter
--- OUTSIDE RECORDS SUMMARY | 2025-04-04 15:45 | XMS_ITS | Encounter Summary ---
Author Organization [employer] Address [address] [facility] 7t [place] [address] Care Team Providers Care Architectural Inspector Name Role Phone Apple Rivera MD Primary Care Provide r Teresa Wolf PharmD Unavailable [phone] Reason for Visit * Reason Comments Pre-visit Planning SDOH screening compl eted on 01/05/2025 Encounter Details Date Type Department Care Team ([facility] st Contact Info) Description 04/02/2025 Patient Outreach [facility] MEDICINE [address] [place], [place] [phone] Apple iRvera MD [address] [place] [address] Pre-visit Planning (SDOH screening completed on 01/05/2025) Social History Tobacco Use Types Packs/Day Years [...] AM EDT documented as of this encounter Progress Notes * [place]a Vela - 04/02/2025 9:07 AM EST CC [place]. Placed outbound call to patient to complete pre-visit planning. No answer at this time. Patient name and were not confirmed. CC left voicemail requesting return call. Direct contact information provided. documented in this encounter Plan of Treatment Upcoming Encounters Date Type Department Care Team ([facility] st Contact Info) Description 04/09/2025 10:00 AM EST Office Visit [facility] MEDICINE [address] [place] [address] Apple Rivera MD [address] [place] [address] 04/30/2025 9:30 AM EST Medication Management [facility] MEDICINE [address] [place] [address] Teresa Wolf, PharmD [address] [place] [address] 06/11/2025 10:00 AM EST Office Visit [facility] OPTOMETRY [address] [place] [address] Yudith Velázquez, OD [address] [place] [address] 07/31/2025 8:45 AM EDT Office Visit [facility] ADULT DENTAL [address] [place] [address] Eric, Geeta [address] [place] [address] documented as of this encounter Goals Goal Patient Goal Type Associated Problems Recent Progress Patient-Stated? Author Blood Pressure < 140/90 Blood Pressure 150/80(2024 9:37 AM EST) No Teresa Ramirez PharmD Consistently take Medications as Prescribed General No Teresa Ramirez PharmD Hemoglobin A1c < 7 Result Component 9.7( 9:40 AM EDT) No Teresa Ramirez PharmD Help patients manage their type 2 diabetes Care Plan Help patients manage their type 2 diabetes No Blanca Flaangan LPN Weekly blood pressure task Care Plan Weekly blood pressure task No Blanca Flanagan LPN Help patients manage their type 2 diabetes Care Plan Help patients manage their type 2 diabetes No Blanca Flanagan LPN Patient has chronic kidney disease Care Plan Patient has chronic kidney disease No Blanca Flanagan LPN Weekly blood pressure task Care Plan Weekly blood pressure task No Blanca Falnagan LPN Patient has chronic kidney disease Care [...] has chronic kidney disease No [place] Vela documented as of this encounter Visit Diagnoses [...] 04/02/2025 Patient has chronic kidney disease 04/02/2025 Assessment Noted Time PHQ-9 Depression Total Score: 0 01/06/20 11:16 AM EDT documented as of this encounter Care Teams Architectural Inspector Relationship Specialty Start Date End Date Apple Rivera MD [address] [place] [address] PCP - General Family Medicine 10/31/19 Teresa Wolf, Mario [address] [place] [address] Pharmacist Internal Medicine 09/14/23 María Van Dramatic CoachPublications Sales Representative 05/19/23 David Mendez Dramatic CoachPublications Sales Representative 07/20/24 documented as of this encounter
--- OUTSIDE RECORDS SUMMARY | 2025-04-04 15:45 | XMS_ITS | Encounter Summary ---
Author Organization [employer] Address [address] [facility] 7t [place] [address] Care Team Providers Care Drywall Metal Stud Worker Name Role Phone Apple Rivera MD Primary Care Provide r Teresa Wolf PharmD Unavailable [phone] Encounter Details Date Type Department Care Team (Latest Contact Info) Description 06/02/2018 Abstract [facility] CONVERSIONS Dental, Provider, DDS Social [...] Description 04/09/2025 10:00 AM EST Office Visit [facility] MEDICINE [address] [place] [address] Apple Rivera MD [address] [place] [address] 04/30/2025 9:30 AM EST Medication Management [facility] MEDICINE [address] [place] [address] Teresa Wolf, PharmD [address] [place] [address] 06/11/2025 10:00 AM EST Office Visit [facility] OPTOMETRY [address] [place] [address] Yudith Velázquez, OD [address] [place] [address] 07/31/2025 8:45 AM EDT Office Visit [facility] ADULT DENTAL [address] [place] [address] Geeta Reyes [address] [place] [address] documented as of this encounter Visit Diagnoses Not on filedocumented in this encounter Care Teams Drywall Metal Stud Worker Relationship Specialty Start Date End Date Apple Rivera MD [address] [place] [address] PCP - General Family Medicine 10/31/19 Teresa Wolf PharmD [address] [place] [address] Pharmacist Internal Medicine 09/14/23 María Van Bull RiveterCreative Writing English Professor 05/19/23 David Mendez Bull RiveterCreative Writing English Professor 07/20/24 documented as of this encounter
--- OUTSIDE RECORDS SUMMARY | 2025-04-04 15:45 | XMS_ITS | Clinical Summary ---
Author Organization [address] [place] [address] Address [address] [place] [address] Phone Care Team Providers Care Forest Ranger Technician Name Role Phone Apple Rivera MD Primary [...] Onychomycosis 2023 T2DM (type 2 diabetes mellitus) ([facility] V24, [facility] V28) 2023 Vaginal infection 2023 Encounters Date Type Department Care Team Description 01/10/2025 Telephone Gastroenterology - [place] [facility] [address] [facility] [address] [place] [address] Giovanna Galaviz NP from Last 3 Months Medical History Medical History Date Comments T2DM (type 2 diabetes mellit ) ([facility] V24, [facility] V28) DX:T2DM (type 2 diabetes krystyna litus) ([facility]) HTN (hypertension) DX:HTN (hyper tension) [...] topic Insurance MEDICAID - [place] Care Teams Forest Ranger Technician Relationship Specialty Start Date End Date Apple Rivera MD [address] [place] [phone] PCP - General 10/06/23
--- OUTSIDE RECORDS SUMMARY | 2025-04-04 15:45 | XMS_ITS | Encounter Summary ---
Author Organization [employer] Address [address] [facility] 7t [place] [address] Care Team Providers Care Dimmer Board Operator Name Role Phone Apple Rivera MD Primary Care Provide r Teresa Wolf PharmD Unavailable [phone] Reason for Visit * Reason Comments Med Refill Encounter Details Date Type Department Care Team ([facility] st Contact Info) Description 03/19/2025 Refill [facility] MEDICINE [address] [place], [place] [phone] Teresa Wolf, PharmD [address] [place] [address] Type 2 diabetes mellitus with hyperglycemia, with [...] 10:00 AM EST Office Visit [facility] MEDICINE [address] [place] [address] Apple Rivera MD [address] [place] [address] 04/30/2025 9:30 AM EST Medication Management [facility] MEDICINE [address] [place] [address] Tersea Wolf, PharmD [address] [place] [address] 06/11/2025 10:00 AM EST Office Visit [facility] OPTOMETRY [address] [place] [address] Yudith Velázquez, СВЕТЛАНА [address] [place] [address] 07/31/2025 8:45 AM EDT Office Visit [facility] ADULT DENTAL [address] [place] [address] Geeta Reyes [address] [place] [address] documented as of this encounter Goals Goal [...] documented as of this encounter Care Teams Dimmer Board Operator Relationship Specialty Start Date End Date Apple Rivera MD [address] [place] [address] PCP - General Family Medicine 10/31/19 Teresa Wolf PharmD [address] [place] [address] Pharmacist Internal Medicine 09/14/23 María Van Incident Response SpecialistLpn Medical Assistant 05/19/23 David Mendez Incident Response SpecialistLpn Medical Assistant 07/20/24 documented as of this encounter
--- OUTSIDE RECORDS SUMMARY | 2025-04-04 15:45 | XMS_ITS | Clinical Summary ---
Author Organization [employer] Address [address] [facility] [address] [place] [address] Care Team Providers Care Oil Driller Name Role Phone Apple Rivera MD Primary Care Provide r Teresa Wolf PharmD Unavailable [phone]- [phone] Allergies Active Allergy Reactions Criticality Noted Date Comments Mayur Inhibitors Cough 05/02/2024 Medications Continuous Blood Gluc Paralegal Assistant (CalendlyStyle Marquis 2 Franklin) deviceIndication s:Type 2 diabetes mellitus with hyperglycemia, with long-term current use of insulin ([facility]) Scan sensor every 8 hours 1 each [...] and at bedtime for constipation. 60 capsule 025 2025 Active Lancets 33G miscIndications: Type 2 diabetes mellitus with hyperglycemia, with long-term current use of insulin ([facility]) USE TO CHECK BLOOD SUGAR THREE TIMES DAILY 100 each 04/04/20 25 9:10 AM EST Active Continuous Glucose Sensor (FreeStyle Marquis 2 Plus Sensor) miscIndications: Type 2 diabetes mellitus with hyperglycemia, with long-term current use of insulin ([facility]) 1 each Use as directed. Test blood sugar every 8 hours 2 each 04/04/20 9:10 AM EST Active ezetimibe (Zetia) 10 MG tabletIndication s:Dyslipidemia [...] hyperglycemia, with long-term current use of insulin ([facility]) USE WITH INSULIN ADMINISTRATION THREE TIMES DAILY 100 each 04/04/20 25 9:10 AM EST 2025 Active atorvastatin (Lipitor) 80 MG tabletIndication s:Dyslipidemia Take 1 tablet (80 mg) by mouth at bedtime. 90 tablet Active insulin glargine (Lantus SoloStar) 100 UNIT/ML penIndications:T ype 2 diabetes mellitus with hyperglycemia, with long-term current use of insulin ([facility]) INJECT 42 UNITS SUBCUTANEOUSLY ONCE DAILY 025 Active amLODIPine-olmes heath (Diamante) 10-40 MG tabletIndication s:Essential hypertension Take 1 tablet by mouth Once per day. 90 tablet 025 Active Tirzepatide (Mounjaro) 7.5 MG/0.5ML solution auto-injectorInd ications:Type 2 diabetes mellitus with hyperglycemia, with long-term current use of insulin ([facility]) Inject 7.5 mg under the skin every 7 (seven) days. 2 mL 2 04/04/20 25 9:10 AM EST 025 Active insulin lispro (HumaLOG KWIKPEN) 100 UNIT/ML injectionIndicat ions:Type 2 diabetes mellitus with hyperglycemia, with long-term current use of insulin ([facility]) Inject subcutaneously twice daily 8 units before lunch and 8 units before dinner. Do not use if skipping meal. 025 Active hydroCHLOROthiaz sivan 12.5 MG tabletIndication s:Essential hypertension TAKE 1 TABLET BY MOUTH EVERY MORNING 90 tablet 1 04/04/20 25 9:10 AM EST 025 Active cyanocobalamin (Vitamin B-12) 1000 MCG tabletIndication s:B12 deficiency TAKE 1 TABLET BY MOUTH EVERY MORNING 90 tablet 1 04/04/20 25 9:10 AM EST 025 Active FreeStyle Precision Juma Test test stripIndications :Type 2 diabetes mellitus with hyperglycemia ([facility]) TEST BLOOD SUGAR EVERY 8 HOURS 100 strip 11 04/04/20 25 9:10 AM EST 025 Active citalopram (CeleXA) 20 MG tabletIndication s:Mood disorder (CMS/HCC) TAKE 1 TABLET BY MOUTH EVERY MORNING 90 tablet 04/04/20 25 9:10 AM EST 025 Active hydroCHLOROthiaz sivan 12.5 MG tabletIndication s:Essential [...] Encounters Date Type Department Care Team Description 04/04/2025 Orders Only [facility] External Provider, [facility] 04/04/2025 Travel 04/02/2025 Patient Outreach [facility] [address] [place] [address] Apple Rivera MD Pre-visit Planning (SDOH screening completed on 01/05/2025) 03/27/2025 Refill [facility] [address] [place] [address] Teresa Wolf PharmD Type 2 diabetes mellitus with hyperglycemia (HCC); Mood disorder ([facility]/HCC) 03/27/2025 Refill [facility] [address] [place], [place] [phone] Apple Rivera MD Mood disorder ([facility]/HCC) 03/26/2025 Refill [facility] [address] [place] [address] Apple Rivera MD Essential hypertension; B12 deficiency 03/19/2025 Refill [facility] [address] [place] [address] Teresa Wolf PharmD Type 2 diabetes mellitus with hyperglycemia, with long-term current use of insulin (HCC) 02/28/2025 Travel 02/21/2025 9:30 AM EDT Office Visit [facility] AD[facility] D[facility] [address] [place] [address] Ngoc Shelby DDS Abfraction (Primary Dx) 01/30/2025 Travel 01/30/2025 Refill [facility] [address] [place] [phone] Teresa Wolf PharmD Type 2 diabetes mellitus with hyperglycemia, with long-term current use of insulin ([facility]/HCC) 01/26/2025 8:00 AM EDT Office Visit [facility] [address] [place] [address] Geeta Reyes Gingival bleeding (Primary Dx); Missing teeth, acquired; Dental calculus; Generalized gingival recession; Abfraction; Periodontal disease 01/26/2025 Outside Procedure [facility] [address] [place] [address] EberAidann, OD Presbyopia (Primary Dx) 01/22/2025 Telephone [facility] [address] [place] [address] Apple Rivera MD NOV RECALL 01/05/2025 11:15 AM EDT Office Visit [facility] [address] [place] [phone] Apple Rivera MD Type 2 diabetes mellitus with hyperglycemia, with long-term current use of insulin ([facility]); Essential hypertension; Primary osteoarthritis of left knee; Right hand pain; Mild intermittent asthma without complication; Encounter for screening mammogram for malignant neoplasm of breast 01/05/2025 9:15 AM EDT Office Visit [facility] [address] [place] [address] Aidan Velázquezn, OD Hyperopia of both eyes (Primary Dx) 01/05/2025 Results Follow-Up [facility] [address] [place] [phone] Apple Rivera MD XR Hand 3+ Views Right 01/05/2025 Travel 01/02/2025 Telephone [facility] [address] [place], [place] [phone] Apple Rivera MD Chart Prep 01/02/2025 Refill [facility] [address] [place], [place] [phone] Apple Rivera MD Mood disorder ([facility]) from Last 3 Months Immunizations Immunization Administration [...] Sign Reading Time Taken Comments Blood Pressure 150/80 04/04/2025 9:37 AM EST Pulse 97 04/04/2025 9:27 AM EST Temperature 36.1 C (97 F) 01/05/2025 11:15 [...] Description 04/09/2025 10:00 AM EST Office Visit [facility] [address] [place] [phone] Apple Rivera MD [address] [place] [address] 04/30/2025 9:30 AM EST Medication Management [facility] [address] [place] [address] Teresa Wolf, PharmD [address] [place] [address] 06/11/2025 10:00 AM EST Office Visit [facility] OPTOMETRY [address] [place] [address] Yudith Velázquez, OD [address] [place] [address] 07/31/2025 8:45 AM EDT Office Visit [facility] ADULT DENTAL [address] [place] [address] Geeta Reyes [address] [place] [address] Health Maintenance Due Date Last Done Comments CT Colonography 1966 FIT DNA/Cologuard 1966 FIT 1966 FOBT 1966 HIV Screening 1966 Sigmoidoscopy 1966 Diabetes: Foot Exam 1976 Alcohol/Substance Use Screening 1978 Hepatitis C Screening 1984 Hepatitis A Vaccines (1 of 2 - Risk 2-dose series) 1985 RSV Patients and Patients Aged 60 years [...] 12/08/2025 12/08/2024, 11/15, 12/08/2024, Additional history exists Depression Screening 01/05/2026 01/05/2025, 01/06/20 25 SDOH Screening 01/05/2026 01/05/2025 Mammogram 02/17/2026 02/17/2025, 06/0 09/2023, 06/16/2021, Additional history exists Tobacco Screening 02/21/2026 02/21/2025 Lipid Panel 04/04/2026 04/04/2025, 12/15, 10/12/2024, Additional history exists Cervical Cancer Screening 12/12/2028 HPV/Cotest 12/12/2028 12/13/2023 [...] Medications as Prescribed General No Teresa Ramirez, Mario Hemoglobin A1c < 7 Result Component 9.7( [...] kidney disease No Piers-Gambl e, Teresa, PharmD Procedures Procedure Name Priority Date/Time Associated Diagnosis Comments XR KNEE 3 VIEWS LEFT Routine 04/04/2025 8:58 AM EST LIPID PANEL, STANDARD Routine 04/04/2025 8:16 AM EST BASIC METABOLIC PANEL Routine 04/04/2025 8:16 AM EST HEPATIC FUNCTION PANEL Routine 8:16 AM EST POCT GLYCATED HEMOGLOBIN, TOTAL Routine 02/28/2025 9:40 [...] hyperglycemia, with long-term current use of insulin ([facility]) ALBUMIN, RANDOM URINE W/CREATININE Routine 10/12/2024 8:15 AM EDT Type 2 diabetes mellitus with hyperglycemia, with long-term current use of insulin ([facility]) BITEWINGS - 4 RADIOGRAPHIC IMAGES Routine 01/24/2024 [...] Relevant to Health Maintenance Results * XR Knee 3 Views Left (04/04/2025 8:58 AM EST) Anatomical Region Laterality Modality Lower Extremities, Knee Left [facility] 04/04/2025 8:58 AM EST Narrative 04/04/2025 9:25 AM EST [address] [address] XRay Report Signed Patient: Lety Melendez MR#: [id number] : 1965 Acct:[id number] Age/Sex: 59 / F ADM Date: 04/04/25 Loc: HO.HHCX Attending Dr: Apple Crowder MD Ordering Physician: Macie Weathers PA-C Date of Service: 04/04/25 Procedure(s): XR knee LT 3V Accession Number(s): [id number] cc: Apple Rivera MD; Macie Weathers PA-C [...] in OV> 04/04/25922 DD/ 7 TD/TT: 04/04/25918 Gin Operator: KARIME Procedure Note Donotuseinterpreter, Image - 04/04/2025 [place] [address] XRay Report Signed Patient: Dinesh Melendez#: [id number] : 1965Acct:[id number] Age/Sex: 59 / FADM Date: 04/04/25 Loc: HO.HHCX Attending Dr: Apple Crowder MD Ordering Physician: Macie Weathers PA-C Date of Service: 04/04/25 Procedure(s): XR knee LT 3V Accession Number(s): [id number] cc: Apple Rivera MD; Macie Weathers PA-C [...] Demarcus Balderrama MD 04/04/2025 09:23 AM EST RP Dictated By: Demarcus Balderrama MD Signed By: <Electronically signed by Demarcus Balderrama MD in OV> 04/04/25922 DD/ 7 TD/TT: 04/04/25918 Gin Operator: KARIME [facility] External Provider IMG XR PROCEDURES Edited Result - Final * Hepatic Function Panel (04/04/2025 8:16 AM EST) Bilirubin, Total 0.3 0.0 - 1.0 mg/dL [facility] Bilirubin, Direct 0.2 0.0 - 0.5 mg/dL [facility] Aspartate Amino Transferase 22 5 - 31 U/L [facility] Alanine Aminotransferase 20 0 - 31 U/L [facility] Total Protein 7.3 6.5 - 8.0 g/dL [facility] Albumin Level 4.2 3.5 - 5.0 g/dL [facility] Alkaline Phosphatase 93 39 - 117 U/L [facility] 04/04/2025 8:16 AM EST 04/04/2025 11:01 AM EST us Apple Crowder MD LAB BLOOD ORDERABLES Final Result [facility] [address] [place] [phone] * (ABNORMAL) Lipid Panel, Standard (04/04/2025 8:16 AM EST) Triglycerides 225(H) <150 mg/dL [facility] Comment:Desirable Triglyceri de: less than 150 mg/dLBorderline High Triglyceride 150-199 mg/dLHigh Triglyceride: 200-499 mg/dLVery High Triglyceride: greater than or equal to 5OO mg/dL Cholesterol 215(H) <200 mg/dL [facility] Comment:Desirable Cholestero l: less than 200 mg/dLBorderline High Cholesterol: 200-239 mg/dLHigh Cholesterol: greater than 239 mg/dL LDL Cholesterol Calculated 117(H) <100 mg/dL [facility] Comment:Desirable LDL: less than 100 mg/dLNear Optimal/Above Optimal LDL: 110- 129 mg/dLBorderline High LDL: 130-159 mg/dLHigh LDL: 160-189 mg/dLVery High LDL: greater than or equal to 190 mg/dL HDL Cholesterol 53 >40 mg/dL [facility] Comment:Desirable HDL: great er than 40 mg/dL Note: This HDL assay may give artificially low results in patients with liver disease. 04/04/2025 8:16 AM EST 04/04/2025 11:01 AM EST us Apple Crowder MD LAB BLOOD ORDERABLES Final Result [facility] [address] [place] [phone] * (ABNORMAL) Basic Metabolic Panel (04/04/2025 8:16 AM EST) Sodium 139 135 - 145 mmol/L [facility] Potassium 4.0 3.3 - 5.1 mmol/L [facility] Chloride 107 96 - 108 mmol/L [facility] Carbon Dioxide 25 22 - 29 mmol/L [facility] Anion Gap 11(L) 12 - 20 [facility] Urea Nitrogen (BUN) 15 9 - 16 mg/dL [facility] Creatinine, Serum 0.57 0.5 - 1.4 mg/dL [facility] Estimated Glomerular Filt Rate >60 [facility] Comment:Chronic Kidney Disea se: Estimated GFR < 60 mL/min/1.51r9[place] Kidney Disease: Estimated GFR < 15 mL/min/1.73m2 Glucose 154(H) 60 - 115 mg/dL [facility] Calcium 9.1 8.4 - 10.2 mg/dL [facility] 04/04/2025 8:16 AM EST 04/04/2025 11:01 AM EST us Apple Crowder MD LAB BLOOD ORDERABLES Final Result [facility] [address] [place] [phone] * (ABNORMAL) POCT A1c (02/28/2025 9:40 AM EDT) Hemoglobin A1C 9.7(A) 4.0 - 5.7 % QC Media Lot # [id number] Lot# Expiration Date [id number] Blood 02/28/2025 9:40 AM EDT us Apple Crowder MD POINT OF CARE TEST EN TER/EDIT ORDERABLES Final Result * BI Mammogram Screening Tomosynthesis Bilateral (02/17/2025 8:57 AM EDT) Anatomical Region Laterality Modality Breast Bilateral Mammography 02/17/2025 8:57 AM EDT Narrative 02/25/2025 2:21 PM EDT [address] [place] [address] Mammography Report Signed Patient: Lety Melendez MR#: [id number] : 1965 Acct:[id number] Age/Sex: 59 / F ADM Date: 02/17/25 Loc: HO.MAMMO Attending Dr: Apple Crowder MD Ordering Physician: Apple Rivera MD Results: 1Negative Date of Service: 02/17/25 Follow Up: 1 Year From Orig inal Mammogram Procedure(s): MM tomosynthesis screening BI Accession Number(s): [id number] cc: Apple Rivera MD Reason For Exam: [...] 02/25/25 1418 DD/ 0857 TD/TT: 02/17/25 0900 Gin Operator: Procedure Note Donotuseinterpreter, Image - 02/25/2025 [facility] [address] [place] [address] Mammography Report Signed Patient: Dinesh Melendez#: [id number] : 1965Acct:[id number] Age/Sex: 59 / FADM Date: 02/17/25 Loc: MAMMO Attending Dr: Apple Crowder MD Ordering Physician: Apple Rivera MDResults: 1Negative Date of Service: 02/17/25Follow Up: 1 Year From Orig ina Mammogram Procedure(s): MM tomosynthesis screening BI Accession Number(s): [id number] cc: Apple Rivera MD Reason For Exam: [...] Radha William DO 02/25/2025 02:18 PM EDT Dictated By: Radha William DO Signed By: <Electronically signed by Radha William DO in OV> 02/25/25 1418 DD/ 0857 TD/TT: 02/17/25 0900 Gin Operator: Apple Crowder MD IMG BI PROCEDURES Mark leonardo Result - Final * FL Esophagus Barium Swallow (01/16/2025 7:25 AM EDT) Anatomical Region Laterality Modality Head, Neck Radiographic Glo ging 01/16/2025 7:25 AM EDT Narrative 01/16/2025 11:24 AM EDT [place] [address] Fluoroscopy Report Signed Patient: Lety Melendez MR#: [id number] : 1965 Acct:[id number] Age/Sex: 59 / F ADM Date: 01/16/25 Loc: RYLEE Attending Dr: Susannah Dela Cruz CNP Ordering Physician: Susannah Dela Cruz CNP Date of Service: 01/16/25 Procedure(s): FL barium swallow Accession Number(s): [id number] cc: Apple Rivera MD; Susannah Dela Cruz [...] 01/16/25 1122 DD/ 0725 TD/TT: 01/16/25 0801 Gin Operator: [place] Procedure Note Donotuseinterpreter, Image - 01/16/2025 [place] [address] Fluoroscopy Report Signed Patient: Dinesh Melendez#: [id number] : 1965Acct:[id number] Age/Sex: 59 / FADM Date: 01/16/25 Loc: HO.ADDY Attending Dr: Susannah Dela Cruz CNP Ordering Physician: Susannah Dela Cruz CNP Date of Service: 01/16/25 Procedure(s): FL barium swallow Accession Number(s): [id number] cc: Apple Rivera MD; Susannah Dela Cruz [...] 01/16/25 1122 DD/ 0725 TD/TT: 01/16/25 0801 Gin Operator: CHARLES [facility] External Provider IMG FLU OROSCOPY PROCEDURES Final Result * XR Hand 3+ Views Right (01/05/2025 11:19 AM EDT) Anatomical Region Laterality Modality Upper Extremities, Hand Right Radiogra phic Imaging 01/05/2025 11:1 9 AM EDT Narrative 01/05/2025 12:21 PM EDT [address] [address] XRay Report Signed Patient: Lety Melendez MR#: [id number] : 1965 Acct:[id number] Age/Sex: 59 / F ADM Date: 01/05/25 Loc: HO.HHCX Attending Dr: Apple Crowder MD Ordering Physician: Apple Rivera MD Date of Service: 01/05/25 Procedure(s): XR hand RT min 3V Accession Number(s): [id number] cc: Apple Rivera MD EXAMINATION: XR HAND, [...] 01/05/25 1219 DD/ 1119 TD/TT: 01/05/25 1204 Gin Operator: Procedure Note Donotuseinterpreter, Image - 01/05/2025 [place] [address] XRay Report Signed Patient: Dinesh Melendez#: [id number] : 1965Acct:[id number] Age/Sex: 59 / FADM Date: 01/05/25 Loc: HO.HHCX Attending Dr: Apple Crowder MD Ordering Physician: Apple Rivera MD Date of Service: 01/05/25 Procedure(s): XR hand RT min 3V Accession Number(s): [id number] cc: Apple Rivera MD EXAMINATION: XR HAND, [...] 01/05/25 1219 DD/ 1119 TD/TT: 01/05/25 1204 Gin Operator: us Apple Crowder MD IMG XR PROCEDURES Fin al Result * POCT Glucose (01/05/2025 11:15 AM EDT) Glucose Blood, POC 115 60 - 200 mg/dL Comment:random QC Media Lot # [id number] Lot# Expiration Date 511 Blood Capillary blood specimen / Unknown 01/05/2025 11:15 AM EDT Apple Crowder MD POINT OF CARE TEST EN TER/EDIT ORDERABLES Final Result * Albumin, Random Urine W/Creatinine (10/12/2024 8:15 AM EDT) Creatinine, Urine 156.35 mg/dL [facility] Microalbumin Urine 7.0 mg/L [facility] Microalbum Creatinine Ratio Ur 4.4 <30 ug/mg cr [facility] Comment:Albumin/Creatinine R atio Reference Ranges: Normal: < 30 ug/mg creatinine Microalbuminuria: 30 - 300 ug/mg creatinineClinical Albuminuria: > 300 ug/mg creatinine Urine (Urine, Random) 10/12/2024 8:15 AM EDT 10/12/2024 12:03 PM EDT Apple Crowder MD LAB URINE ORDERABLES Final Result [facility] [address] [place] [phone] * ThinPrep Imaging Pap and HPV mRNA E6/E7 (12/13/2023 12:00 AM EDT) HPV nRNA E6/E7 Not Detected Not Detected [facility] Comment:Methodology: Transcr iption-Mediated AmplificationThis assay detects E6/E7 viral messenger RNA (mRNA) from 14high-risk HPV types (16,18,31,33,35,39,45,51,52,56,58,59,66,68).Cervical sources are required for HPV testing.If a vaginal source from a patient who has had atotal hysterectomy with removal of cervix wassubmitted, please contact the testing laboratoryfor alternative testing options.For additional information, please refer [email or web address] [email or web address](This link if provided for information/educational purposes only.)THIS TEST WAS PERFORMED AT:[facility] [address] [id number] LANCASTER MD SOURCE: SEE NOTE [facility] Comment:Cervix Report Status: [facility] Clinical Information: SEE NOTE [facility] Comment:57 Y/O F LMP: SEE NOTE [facility] Comment:NONE GIVEN Prev. PAP: SEE NOTE [facility] Comment:NONE GIVEN Prev. BX: SEE NOTE [facility] Comment:NONE GIVEN Statement Of Adequacy: SEE NOTE [facility] Comment:Satisfactory for kushal luation.Endocervical/transformation zone component absent. General Categorization: [facility] Interpretation/Result: SEE NOTE [facility] Comment:Cytology Results: Ne gative for intraepitheliallesion or malignancy. Cytology Comment SEE NOTE [facility] Comment:This Pap test has be en evaluated with computerassisted technology. Courtroom Clerk: SEE NOTE [facility] Comment:RXB, CT(ASCP)CT scre ening location: [place] [address] Review Courtroom Clerk: [facility] Pathologist [facility] PAP Infection SEE NOTE [facility] Comment:Shift in vaginal adrian ra suggestive of bacterialvaginosis. See Note SEE NOTE [facility] Comment:EXPLANATORY NOTE:The Pap is a screening test for cervical cancer. It isnot a diagnostic test and is subject to false negativeand false positive results. It is most reliable when asatisfactory sample, regularly obtained, is submittedwith relevant clinical findings and history, and whenthe Pap result is evaluated along with historic andcurrent clinical information. 12/13/2023 12/13/2023 Narrative [facility] - 12/16/2023 12:26 PM EDT SEE SCANNED RESULTS IN EMR57 Y/O FCERVIX us Apple Crowder MD LAB PATHOLOGY ORDERAB LES Final Result [facility] [address] [place] [phone] [phone] * Hm Colonoscopy (12/20/2018) us Historical [...] 04/04/2025 Patient has chronic kidney disease 04/04/2025 Insurance [place] [employer] STAND ADULT Care Teams Oil Driller Relationship Specialty Start Date End Date Apple Rivera MD [address] [place] [phone] PCP - General Family Medicine 10/31/19 Teresa Wolf, PharmD [address] [place] [phone] Pharmacist Internal Medicine 09/14/23 María Van Nuclear PhysicianConstruction Technician 05/19/23 David Mendez Nuclear PhysicianConstruction Technician 07/20/24
== END 2025-04-04 08:12 | disposition home or self-care (01) ==
LOC: HO.HHCX 08:11
PROVIDERS: PCP Internal Medicine; Referring Provider Physician Assistant; Visit Provider Internal Medicine
DX: M25.562 Pain in left knee (principal); I10 Essential (primary) hypertension; E78.5 Hyperlipidemia, unspecified
CPT/HCPCS: 36415; 73562; 80048; 80061; 80076

== ENCOUNTER → 2025-04-04 08:36 | Outpatient (BNV) | payer MEDICAID, SELFPAY | PROVIDERS: PCP Internal Medicine; Referring Provider Physician Assistant; Visit Provider Radiology Diagnostic Ultrasound | DX: M25.562 Pain in left knee (principal); M25.762 Osteophyte, left knee | CPT/HCPCS: 73562 ==